=== PATIENT | male | born 1965 | race African-American/Black ===

== ENCOUNTER 2016-11-21 04:59 | Emergency (ER) | payer SELFPAY ==
--- NOTE | 2016-11-21 06:23 | RADIOLOGY REPORT (SQ) ---
EXAM DESCRIPTION: CHEST PA/LAT COMPLETED DATE/TIME: 11/21/2016 6:11 am REASON FOR STUDY: resp COMPARISON: Chest x-ray 05/18/2015, 02/15/2015. EXAM PARAMETERS: NUMBER OF VIEWS: two views TECHNIQUE: Digital Frontal and Lateral radiographic views of the chest acquired. RADIATION DOSE: NA LIMITATIONS: none FINDINGS: LUNGS AND PLEURA: No consolidation, pneumothorax or pleural effusion. MEDIASTINUM AND HILAR STRUCTURES: No masses or contour abnormalities. HEART AND VASCULAR STRUCTURES: The cardiomediastinal silhouette is stable. No overt vascular congest ion. BONES: Mild multilevel degenerative changes in the spine. HARDWARE: None in the chest. IMPRESSION: No acute radiographic finding in the chest. TECHNICAL DOCUMENTATION: JOB ID: [id number] 2010 [employer]- All Rights Reserved
[2016-11-21] MEDS ORDERED: LORAZEPAM 1 MG TABLET PO ONE (06:40)
[2016-11-21] MEDS ORDERED: LORAZEPAM 1 MG TABLET ONE (06:45)
--- NOTE | 2016-11-21 07:36 | ER Document Report ---
ED General - General Chief Complaint: Respiratory Distress Stated Complaint: BREATHING PROBLEMS Time Seen by Provider: 11/21/16 06:13 Mode of Arrival: Ambulatory Information source: Patient Notes: 51-year-old male history of congestive heart failure presents with complaints of shortness of breath. Patient notes these episodes are intermittent and then go away. He notes when he bends forward and starts breathing very quickly the symptoms improve patient denies any edema of his lower extremities denies any shortness of breath when he lays flat Patient believes he may have anxiety TRAVEL OUTSIDE OF THE [place] IN LAST 30 DAYS: No - HPI Onset: Other Onset/Duration: Intermittent Quality of pain: No pain Severity: Moderate Pain Level: Denies Associated symptoms: Shortness of breath Exacerbated by: Movement Relieved by: Other Similar symptoms previously: Yes Recently seen / treated by doctor: Yes - Related Data Allergies/Adverse Reactions: No Known Allergies Allergy (Verified 11/21/16 04:59) Past Medical History - Social History Smoking Status: Never Smoker Cigarette use (# per day): No Chew tobacco use (# tins/day): No Smoking Education Provided: No Family History: None Patient has suicidal ideation: No Patient has homicidal ideation: No - Past Medical History Cardiac Medical History: Reports: Hx Hypertension Renal/ Medical History: Denies: Hx Peritoneal Dialysis Past Surgical History: Reports: Hx Orthopedic Surgery - Immunizations Hx Diphtheria, Pertussis, Tetanus Vaccination: Yes Review of Systems - Review of Systems Notes: REVIEW OF SYSTEMS: CONSTITUTIONAL : Denies fever, chills, or sweats. Denies recent illness. EENT: Denies eye, ear, throat, or mouth pain or symptoms. Denies nasal or sinus congestion or discharge. Denies throat, tongue, or mouth swelling or difficulty swallowing. CARDIOVASCULAR: Denies chest pain. Denies palpitations or racing or irregular heart beat. Denies ankle edema. RESPIRATORY: Admits to shortness of breath GASTROINTESTINAL: Denies abdominal pain or distention. Denies nausea, vomiting , or diarrhea. Denies blood in vomitus, stools, or per rectum. Denies black, tarry stools. Denies constipation. GENITOURINARY: Denies difficulty urinating, painful urination, burning, frequency, blood in urine, or discharge. MUSCULOSKELETAL: Denies back or neck pain or stiffness. Denies joint pain or swelling. SKIN: Denies rash, lesions or sores. HEMATOLOGIC : Denies easy bruising or bleeding. LYMPHATIC: Denies swollen, enlarged glands. NEUROLOGICAL: Denies confusion or altered mental status. Denies passing out or loss of consciousness. Denies dizziness or lightheadedness. Denies headache. Denies weakness or paralysis or loss of use of either side. Denies problems with gait or speech. Denies sensory loss, numbness, or tingling. Denies seizures. PSYCHIATRIC: Admits to stress. ALL OTHER SYSTEMS REVIEWED AND NEGATIVE. Dictation was performed using [employer] voice recognition software PHYSICAL EXAMINATION: GENERAL: Well-appearing, well-nourished and in no acute distress. HEAD: Atraumatic, normocephalic. EYES: Pupils equal round and reactive to light, extraocular movements intact, sclera anicteric, conjunctiva are normal. ENT: Nares patent, oropharynx clear without exudates. Moist mucous membranes. NECK: Normal range of motion, supple without lymphadenopathy LUNGS: Breath sounds clear to auscultation bilaterally and equal. No wheezes rales or rhonchi. HEART: Regular rate and rhythm without murmurs ABDOMEN: Soft, nontender, nondistended abdomen. No guarding, no rebound. No masses appreciated. Musculoskeletal: Normal range of motion, no pitting or edema. No cyanosis. NEUROLOGICAL: Cranial nerves grossly intact. Normal speech, normal gait. Normal sensory, motor exams PSYCH: Normal mood, normal affect. SKIN: Warm, Dry, normal turgor, no rashes or lesions noted. Physical Exam - Vital signs Vitals: Temp Pulse BP Pulse Ox 97.4 F 78 153/108 H 98 11/21/16 05:03 11/21/16 05:03 11/21/16 05:03 11/21/16 05:03 Course - Re-evaluation Re-evalutation: 11/21/16 07:34 Patient noted complete resolution of the symptoms after he was given Ativan x- ray was normal patient satting 100% on room air breath sounds are clear he has no DVT or PE risk factors I believe he is stable for discharge Initial concerns were for congestive heart failure by x-ray was normal there is no edema of the lower extremities that continue to talk with the patient it was apparent that anxiety plays a very large role. I will have him follow-up with primary care physician for further care After performing a Medical Screening Examination, I estimate there is LOW risk for ACUTE CORONARY SYNDROME, RESPIRATORY FAILURE, SEPSIS OR MENINGITIS, thus I consider the discharge disposition reasonable. I have reevaluated this patient multiple times and no significant life threatening changes are noted. The patient and I have discussed the diagnosis and risks, and we agree with discharging home with close follow-up. We also discussed returning to the Emergency Department immediately if new or worsening symptoms occur. We have discussed the symptoms which are most concerning (e.g., changing or worsening pain, trouble swallowing or breathing, neck stiffness, fever) that necessitate immediate return. 11/21/16 16:08 - Vital Signs Vital signs: Temp Pulse Resp BP Pulse Ox 97.4 F 78 18 143/103 H 100 11/21/16 05:03 11/21/16 05:03 11/21/16 07:35 11/21/16 07:35 11/21/16 07:35 - Diagnostic Test Radiology reviewed: Image reviewed, Reports reviewed - No acute abnormality - EKG Interpretation by Me EKG shows normal: Sinus rhythm, [place], Intervals, QRS Complexes Discharge - Discharge Clinical Impression: Panic attack, SOB (shortness of breath) Condition: Stable Disposition: HOME, SELF-CARE Instructions: Anxiety ([facility]), Dyspnea, Nonspecific ([facility]) Prescriptions: Lorazepam [Ativan 1 mg Tablet] 1 mg PO Q4 PRN #20 tab PRN Reason: Referrals: LATASHA BRAXTON NAIL TECH [Primary Care Provider] - Follow up tomorrow
[2016-11-21 07:51] VITALS: BP 143/103
--- NOTE | 2016-11-21 14:35 | EKG REPORT ---
SEVERITY:- ABNORMAL ECG - SINUS RHYTHM LEFT ATRIAL ABNORMALITY ABNORMAL T, CONSIDER ISCHEMIA, LATERAL LEADS BORDERLINE PROLONGED QT INTERVAL : Confirmed by: Melissa Weathers MD 21-Nov-2016 14:33:57
== END 2016-11-21 07:50 | disposition home or self-care (01) ==
LOC: ER 04:59
DX: F41.0 Panic disorder [episodic paroxysmal anxiety] (principal); R06.02 Shortness of breath; I10 Essential (primary) hypertension
CPT/HCPCS: 71020; 93005; 93010; 99285

== ENCOUNTER 2016-11-24 05:10 | Inpatient (IN) | payer SELFPAY ==
[2016-11-24] MEDS ORDERED: IPRATROPIUM/ALBUTEROL 0.5-2.5 MG/3 ML AMPUL NEB ONE ×2 (05:44→15:47)
--- NOTE | 2016-11-24 05:46 | ER Document Report ---
ED Medical Screen (RME) - General Chief Complaint: Shortness Of Breath Stated Complaint: DIFFICULTY BREATHING Time Seen by Provider: 11/24/16 05:44 Notes: Patient is a 51-year-old male who comes emergency department for chief complaint of worsening shortness of breath over the past couple of days, he states that now he cannot even take a couple of steps without getting severely out of breath. He does take Lasix for CHF, states he has been compliant, denies any swelling, he also reports a cough, states he has felt somewhat feverish. He denies chest pain. TRAVEL OUTSIDE OF THE [place] IN LAST 30 DAYS: No - Related Data Allergies/Adverse Reactions: No Known Allergies Allergy (Verified 11/21/16 04:59) Past Medical History - Past Medical History Cardiac Medical History: Reports: Hx Hypertension Renal/ Medical History: Denies: Hx Peritoneal Dialysis Past Surgical History: Reports: Hx Orthopedic Surgery - Immunizations Hx Diphtheria, Pertussis, Tetanus Vaccination: Yes Physical Exam - Vital signs Vitals: Temp Pulse Resp BP Pulse Ox 97.5 F 81 24 H 148/101 H 97 11/24/16 05:20 11/24/16 05:20 11/24/16 05:20 11/24/16 05:20 11/24/16 05:20 - Respiratory Respiratory status: Tachypnea - Mild. No: Respiratory distress Breath sounds: Decreased air movement - Scattered coarse breath sounds, faint expiratory wheezes bilaterally Course - Re-evaluation Re-evalutation: Patient is not hypoxic although he is visibly somewhat short of breath. He is not in respiratory distress. He does have some coarse breath sounds and some faint expiratory wheezes throughout. Workup pending. - Vital Signs Vital signs: Temp Pulse Resp BP Pulse Ox 97.5 F 81 24 H 148/101 H 97 11/24/16 05:20 11/24/16 05:20 11/24/16 05:20 11/24/16 05:20 11/24/16 05:42
[2016-11-24 06:06] LABS: ABSOLUTE EOSINOPHILS # (AUTO) 0.4 10^3/uL (0.0-0.6); ABSOLUTE LYMPHOCYTES (AUTO) 0.9 10^3/uL (0.5-4.7); ABSOLUTE MONOCYTES (AUTO) 0.7 10^3/uL (0.1-1.4); BASOPHILS % (AUTO) 0.6 % (0-2); EOSINOPHILS % (AUTO) 6.2 % (0-6); HEMOGLOBIN 14.7 g/dL (13.5-17.0); HGB HCT DIFFERENCE 1.1; LYMPHOCYTES % (AUTO) 13.1 % (13-45); MEAN CORPUSCULAR HEMOGLOBIN 32.1 pg (27.0-33.4); MEAN CORPUSCULAR HGB CONC 34.2 g/dL (32.0-36.0); MEAN CORPUSCULAR VOLUME 94 fl (80-97); MONOCYTES % (AUTO) 10.1 % (3-13); RED BLOOD COUNT 4.57 10^6/uL (4.35-5.55); RED CELL DISTRIBUTION WIDTH 14.1 % (11.5-14.0); WHITE BLOOD COUNT 7.1 10^3/uL (4.0-10.5)
[2016-11-24 06:22] LABS: ALANINE AMINOTRANSFERASE 56 U/L (21-72); ALBUMIN 3.7 g/dL (3.5-5.0); ALKALINE PHOSPHATASE 85 U/L (38-126); ANION GAP 8 (5-19); ASPARTATE AMINO TRANSFERASE 24 U/L (17-59); BILIRUBIN,DIRECT 0.4 mg/dL (0.0-0.4); BILIRUBIN,TOTAL 0.7 mg/dL (0.2-1.3); BLOOD UREA NITROGEN 16 mg/dL (7-20); CALCIUM 9.3 mg/dL (8.4-10.2); CARBON DIOXIDE 26 mmol/L (22-30); CHLORIDE 111 mmol/L (98-107); CREATINE KINASE 296 U/L (55-170); GLUCOSE 101 mg/dL (75-110); POTASSIUM 4.5 mmol/L (3.6-5.0); SODIUM 144.7 mmol/L (137-145); TOTAL PROTEIN 6.1 g/dL (6.3-8.2)
--- NOTE | 2016-11-24 06:29 | RADIOLOGY REPORT (SQ) ---
EXAM DESCRIPTION: CHEST SINGLE VIEW CLINICAL HISTORY: 51 years, Male, SOB COMPARISON: Chest radiographs of November 21, 2016. NUMBER OF VIEWS: 1 TECHNIQUE: Routine portable AP chest radiograph technique. LIMITATIONS: None. FINDINGS: Unchanged panchamber cardiac enlargement. New mid right lung atelectasis. No pulmonary edema or focal pneumonia on this single view. No pneumothorax. IMPRESSION: New mid right lung atelectasis. No pulmonary edema or focal pneumonia on this single view. 2011 [employer]- All Rights Reserved
[2016-11-24 06:32] LABS: CREATINE KINASE MB 3.35 ng/mL (<4.55)
[2016-11-24 06:35] LABS: TROPONIN I 0.071 ng/mL
--- NOTE | 2016-11-24 06:54 | ER Document Report ---
ED Respiratory Problem - General Mode of Arrival: Ambulatory Information source: Patient TRAVEL OUTSIDE OF THE [place] IN LAST 30 DAYS: No - HPI Patient complains to provider of: Cough Onset: Other - >3 days Duration: Worse/persistent Quality of pain: No pain <FEDERICO BARAJAS - Last Filed: 11/24/16 07:58> <JACOB BILL - Last Filed: 11/24/16 16:15> - General Chief Complaint: Shortness Of Breath Stated Complaint: DIFFICULTY BREATHING Time Seen by Provider: 11/24/16 05:44 Notes: Patient is a 51-year-old male who presents to the emergency department today with complaints of shortness of breath. Patient was seen here 3 days ago for similar complaints and was found to have shortness of breath related to anxiety. Patient states his symptoms have not really been relieved with the medications he was sent home with. Patient states he had similar symptoms one year ago and was diagnosed with CHF at that time and put on Lasix which did relieve his symptoms. Patient states he has developed a slight cough with white sputum production. (FEDERICO BARAJAS) This 51-year-old male patient comes emergency room complaining of worsening shortness of breath for the last few days. He was seen here 3 days ago for shortness of breath and was felt to be due to anxiety. He was discharged with prescription for Ativan. He states that the Ativan did not seem to help his shortness of breath at all. When the patient first arrived he was given a breathing treatment with albuterol and Atrovent. He stated that it did not seem to help his breathing or his shortness of breath. He does not have a history of COPD, and he does not normally use bronchodilators. He does take Lasix for a diagnosis of CHF, and he states that he has been compliant with medication. He does not have any edema to his lower legs and ankles. He is a former smoker. He was admitted here on 02/14/2015 with a CHF exacerbation, at that time he had lower extremity edema and was started on Lasix. (JACOB BILL) - Related Data Allergies/Adverse Reactions: No Known Allergies Allergy (Verified 11/21/16 04:59) Past Medical History - General Information source: Patient - Social History Smoking Status: Former Smoker Cigarette use (# per day): No Chew tobacco use (# tins/day): No Frequency of alcohol use: None Drug Abuse: None Lives with: Family Family History: None Patient has suicidal ideation: No Patient has homicidal ideation: No - Past Medical History Cardiac Medical History: Reports: Hx Hypertension Past Surgical History: Reports: Hx Orthopedic Surgery - Immunizations Hx Diphtheria, Pertussis, Tetanus Vaccination: Yes <FEDERICO BARAJAS - Last Filed: 11/24/16 07:58> Review of Systems - Review of Systems Constitutional: No symptoms reported EENT: No symptoms reported Cardiovascular: No symptoms reported Respiratory: See HPI, Cough, Short of breath Gastrointestinal: No symptoms reported Genitourinary: No symptoms reported Male Genitourinary: No symptoms reported Musculoskeletal: No symptoms reported Skin: No symptoms reported Hematologic/Lymphatic: No symptoms reported Neurological/Psychological: No symptoms reported -: Yes All other systems reviewed and negative <FEDERICO BARAJAS - Last Filed: 11/24/16 07:58> Physical Exam - Vital signs Interpretation: Normal - General General appearance: Appears well, Alert - HEENT Head: Normocephalic, Atraumatic Eyes: Normal Pupils: PERRL Ears: Normal External canal: Normal Tympanic membrane: Normal - Respiratory Respiratory status: Tachypnea Breath sounds: Other - rhonchi and wheezing with forced cough Chest palpation: Normal - Cardiovascular Rhythm: Regular Heart sounds: Normal auscultation Murmur: No - Abdominal Inspection: Normal Distension: No distension Bowel sounds: Normal Tenderness: Nontender Organomegaly: No organomegaly - Back Back: Normal, Nontender - Extremities General upper extremity: Normal inspection, Normal ROM, Normal strength. No: Edema General lower extremity: Edema - 1+ edema bilaterally - Neurological Neuro grossly intact: Yes Cognition: Normal Orientation: AAOx4 Ras Coma Scale Eye Opening: Spontaneous Ras Coma Scale Verbal: Oriented Ras Coma Scale Motor: Obeys Commands Ras Coma Scale Total: 15 Speech: Normal - Psychological Associated symptoms: Normal affect, Normal mood - Skin Skin Temperature: Warm Skin Moisture: Dry Skin Color: Normal <FEDERICO BARAJAS - Last Filed: 11/24/16 07:58> <JACOB BILL - Last Filed: 11/24/16 16:15> - Vital signs Vitals: Temp Pulse Resp BP Pulse Ox 97.5 F 81 24 H 148/101 H 97 11/24/16 05:20 11/24/16 05:20 10/05/17 05:20 11/24/16 05:20 11/24/16 05:20 - HEENT Notes: Eye patch over right eye (FEDERICO BARAJAS) Course - Laboratory Result Diagrams: 11/24/16 05:50 11/24/16 05:50 <FEDERICO BARAJAS - Last Filed: 11/24/16 07:58> - Laboratory Result Diagrams: 11/24/16 05:50 11/24/16 05:50 - Diagnostic Test Radiology reviewed: Image reviewed, Reports reviewed - VQ scan of the lungs is low probability for pulmonary embolus. CT scan of the chest does not show explanation for the shortness of breath. There is an enlarged a sending aorta, but this is unchanged from 02/14/2015. There is an incidental finding of approximately 5 x 5 cm right renal mass suggestive of a renal cell cancer. - EKG Interpretation by [facility] EKG shows normal: Sinus rhythm, [place], Intervals, QRS Complexes, ST-T Waves Rate: Normal - 84 Rhythm: NSR P Waves: LAE When compared to previous EKG there are: No significant change - Consults Dr. Caro Time consulted: 16:00 Consulted provider: will come to ER <JACOB BILL - Last Filed: 11/24/16 16:15> - Re-evaluation Re-evalutation: 11/24/16 11:15 The patient's physical exam, Chem-12, and ABG also just the patient is hyperventilating and possibly due to anxiety. Ativan however has not helped his symptoms. His d-dimer is only 0.3 which makes significant pulmonary emboli extremely unlikely. Due to his chronic renal insufficiency and running creatinines in the 1.82.0 region over the last few years, it would probably not be safe to use contrast on the CT scan. A VQ scan is unlikely to be of benefit due to the d- dimer being so low. Therefore a noncontrasted CT scan of the chest will be done to see if it provides any explanation for the patient's hyperventilation. ( JACOB BILL) - Vital Signs Vital signs: Temp Pulse Resp BP Pulse Ox 97.5 F 81 26 H 184/120 H 99 11/24/16 05:20 11/24/16 05:20 11/24/16 13:01 11/24/16 15:33 11/24/16 13:01 - Laboratory Laboratory results interpreted by me: 11/24/16 11/24/16 11/24/16 05:50 05:50 05:50 RDW 14.1 H Eosinophils % 6.2 H Carbonic Acid ABG pH ABG pCO2 ABG pO2 ABG Total CO2 Chloride 111 H Creatinine 1.80 H Est GFR ( Amer) 48 L Est GFR (Non-Af Amer) 40 L Creatine Kinase 296 H NT-Pro-B Natriuret Pep 2430 H Total Protein 6.1 L 11/24/16 07:40 RDW Eosinophils % Carbonic Acid 0.89 L ABG pH 7.48 H ABG pCO2 29.7 L ABG pO2 79.6 L ABG Total CO2 22.6 L Chloride Creatinine Est GFR ( Amer) Est GFR (Non-Af Amer) Creatine Kinase NT-Pro-B Natriuret Pep Total Protein Discharge <FEDERICO BARAJAS - Last Filed: 11/24/16 07:58> - Discharge Admitting Provider: Hospitalist Unit Admitted: I[facility] <JACOB BILL - Last Filed: 11/24/16 16:15> - Discharge Clinical Impression: SOB (shortness of breath), Acute respiratory alkalosis, Hyperventilation, Renal mass, right, Congestive cardiomyopathy High blood pressure Qualifiers: Hypertension type: essential hypertension Qualified Code(s): I10 - Essential ( primary) hypertension Condition: Stable Disposition: ADMITTED INPATIENT Scribe Attestation: 11/24/16 09:23 I personally performed the services described in the documentation, reviewed and edited the documentation which was dictated to the scribe in my presence, and it accurately records my words and actions. (JACOB BILL) Scribe Documentation - Scribe Written by Albertina:: Albertina Glynn, 11/24/2016 0816 acting as scribe for :: Dre <FEDERICO BARAJAS - Last Filed: 11/24/16 07:58>
[2016-11-24 07:58] LABS: ARTERIAL BLOOD BASE EXCESS -0.6 mmol/L; ARTERIAL BLOOD O2 SATURATION 96.6 % (94-98)
[2016-11-24] MEDS ORDERED: LORAZEPAM INJ 2 MG/1 ML VIAL IV ONE ×2 (08:58→10:50)
--- NOTE | 2016-11-24 09:09 | EKG REPORT ---
SEVERITY:- ABNORMAL ECG - SINUS RHYTHM LEFT ATRIAL ABNORMALITY : Confirmed by: Melissa Weathers MD 24-Nov-2016 09:08:10
--- NOTE | 2016-11-24 11:29 | RADIOLOGY REPORT (SQ) ---
EXAM DESCRIPTION: CT CHEST WITHOUT COMPLETED DATE/TIME: 11/24/2016 11:02 am REASON FOR STUDY: Dyspnea, hyperventilation, chronic renal insuffici COMPARISON: CT angio chest 02/14/2015 Chest films 11/21/2016, 11/24/2016 TECHNIQUE: CT scan performed of the chest without intravenous contrast. Images reviewed with lung, soft tissue and bone windows. Reconstructed coronal and sagittal MPR images reviewed. All images st ored on PACS. All CT scanners at this facility use dose modulation, iterative reconstruction, and/or weight based d osing when appropriate to reduce radiation dose to as low as reasonably achievable (ALARA). [facility]: Dose Right [facility]: CareDose [facility]: Dose Right [facility]: Teradose 4D [facility]: [employer] RADIATION DOSE: Up-to-date CT equipment and radiation dose reduction techniques were employed. CTDIv ol: 19.6 mGy. DLP: 855 mGy-cm. mGy. LIMITATIONS: No technical limitations. FINDINGS: LUNGS AND PLEURA: Minimal bibasilar atelectasis. No acute fluffy infiltrates worrisome f or edema or pneumonia. No pleural effusions. No pneumothorax. HILAR AND MEDIASTINAL STRUCTURES: There are multiple less than 1 cm short axis mediastinal lymph node s, similar compared to 02/14/2015 HEART AND VASCULAR STRUCTURES: Cardiomegaly. No pericardial effusion or significant coronary artery calcifications. Ascending aorta measures 4.4 cm in greatest diameter. Correlate clinically for aort ic stenosis or aortic insufficiency UPPER ABDOMEN: A 4.5 cm mass versus hemorrhagic cyst is present in the right upper pole kidney. Isidro mmend renal ultrasound for followup. Calcified stones are present in the gallbladder without gallbla dder wall thickening or pericholecystic fluid. Multiple less than 1 cm hepatic cysts. THYROID AND OTHER SOFT TISSUES: No masses. No adenopathy. BONES: No significant finding. HARDWARE: None in the chest. OTHER: These findings were discussed with Dr. Erickson IMPRESSION: Cardiomegaly with prominent ascending aorta. Bandlike atelectasis in the right and left lung bases. 4.5 cm mass versus hemorrhagic cyst right kidney for which dedicated renal ultrasound is recommended for followup TECHNICAL DOCUMENTATION: JOB ID: [id number] Quality ID # [id number]: Final reports with documentation of one or more dose reduction techniques (e.g., Au tomated exposure control, adjustment of the mA and/or kV according to patient size, use of iterative reconstruction technique) 2010 [employer]- All Rights Reserved
--- NOTE | 2016-11-24 12:40 | RADIOLOGY REPORT (SQ) ---
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 Additional selected color Doppler and spectral images recorded. LIMITATIONS: Patient has a rapid respiratory rate come on limited images without motion FINDINGS: Right kidney measures 10.1 cm in length. There is diffuse cortical thinning and increased echogenicity. No hydronephrosis or stones. In the upper pole right kidney, a 5 by 4.8 cm diameter complex cystic mass is present with septations and mural nodule. Internal color flow along septation. This is worrisome for primary renal neoplas m. Limited visualization of the left kidney do left upper quadrant bowel gas and patient rapid respirato ry rate. Left kidney 10.6 cm in length. Diffuse left renal cortical thinning and increased cortical echogenicity from medical renal disease with cortical thinning. No hydronephrosis,, stones, or mass es. IMPRESSION: 5 x 4.8 cm complex cystic/ solid mass in the right upper pole kidney worrisome for tumor . Both kidneys exhibit cortical thinning and increased echogenicity from medical renal disease. TECHNICAL DOCUMENTATION: JOB ID: [id number] [employer]- All Rights Reserved
--- NOTE | 2016-11-24 14:51 | RADIOLOGY REPORT (SQ) ---
EXAM DESCRIPTION: NM LUNG VENT/PERF SCAN COMPLETED DATE/TIME: 11/24/2016 2:32 pm REASON FOR STUDY: dyspnea COMPARISON: 08/25/2014 ventilation-perfusion scan CT angio chest 02/14/2015 CT chest without IV contrast 11/24/2016 RADIONUCLIDE AND DOSE: 5 millicuries TC-99m MAA Intravenous 31 millicuries TC-99m DTPA Inhaled aerosol TECHNIQUE: Eight views of the lungs acquired post ventilation of DTPA aerosol. Eight matching views of the lungs acquired following injection of MAA. LIMITATIONS: None. FINDINGS: VENTILATION: There is clumping of DTPA in the central airways, and bandlike absence of delia tilation in the right and left mid lung, correlating with bandlike atelectasis on today's CT exam PERFUSION: Subtle bandlike profusion defect in the right and left mid lung and areas of atelectasis o n today's CT chest. These correlate with ventilation defect, and are triple match by PIOPED criteria , low probability for pulmonary embolus OTHER: No other significant finding. IMPRESSION: Low probability for pulmonary emboli. TECHNICAL DOCUMENTATION: JOB ID: [id number] [employer]- All Rights Reserved
[2016-11-24] MEDS ORDERED: HYDRALAZINE HCL INJ/PF 20 MG/1 ML SDV IV ONE (15:32)
[2016-11-24] MEDS ORDERED: FUROSEMIDE INJ/PF 40 MG/4 ML SDV IV ONE (16:10)
[2016-11-24] MEDS ORDERED: NITROGLYCERIN 2% OINTMENT 1 GM PACKET TP ONE (16:10)
[2016-11-24] MEDS ORDERED: METHYLPREDNISOLONE INJ 125 MG/2 ML SDV IV ONE (16:10)
[2016-11-24] MEDS ORDERED: NITROGLYCERIN 2% OINTMENT 1 GM PACKET ONE (16:11)
[2016-11-24] MEDS ORDERED: METHYLPREDNISOLONE INJ 125 MG/2 ML SDV ONE (16:12)
[2016-11-24] MEDS ORDERED: FUROSEMIDE INJ/PF 40 MG/4 ML SDV ONE (16:12)
[2016-11-24] MEDS ORDERED: ASPIRIN 81 MG TABLET, CHEWABLE ONE (16:12)
[2016-11-24] MEDS ORDERED: ACETAMINOPHEN 325 MG TABLET PO PRN (16:15)
[2016-11-24] MEDS ORDERED: MORPHINE SULFATE 10 MG/ML INJ IV ONE ×2 (16:26→17:00)
[2016-11-24] MEDS ORDERED: MORPHINE SULFATE 10 MG/ML INJ IV PRN (16:28)
[2016-11-24] MEDS ORDERED: MORPHINE SULFATE 10 MG/ML INJ ONE (16:28)
[2016-11-24] MEDS ORDERED: PHARMACY COMMUNICATION ORDER MC NR (16:30)
[2016-11-24 16:41] LABS: APPEARANCE,URINE CLEAR; BILIRUBIN,URINE NEGATIVE (NEGATIVE); GLUCOSE, URINE NEGATIVE (NEGATIVE); KETONES,URINE NEGATIVE (NEGATIVE); LEUKOCYTE ESTERASE,URINE TRACE (NEGATIVE); NITRITE,URINE NEGATIVE (NEGATIVE); PROTEIN,URINE 30 mg/dL (NEGATIVE); URINE SPECIFIC GRAVITY 1.031
[2016-11-24 16:53] LABS: URINE BARBITURATES SCREEN NEGATIVE; URINE METHADONE SCREEN NEGATIVE; URINE OPIATES LOW NEGATIVE; URINE PHENCYCLIDINE SCREEN NEGATIVE
[2016-11-24] MEDS ORDERED: CARVEDILOL 12.5 MG TABLET PO ONE (17:00)
[2016-11-24] MEDS ORDERED: AMOXICILLIN TR/POT CLAVULANATE 500-125 MG TAB PO ONE (17:00)
[2016-11-24 17:54] LABS: CREATINE KINASE MB 2.6 ng/mL (<4.55); TROPONIN I 0.071 ng/mL
[2016-11-24] MEDS ORDERED: LORAZEPAM 1 MG TABLET PO PRN (18:15)
[2016-11-24] MEDS ORDERED: (PENDING PHARMACY ID) (Oxycodone Hcl/Acetaminophen [Percocet 10-325 Mg Tablet] 1 TAB) PO PRN (18:15)
[2016-11-24] MEDS ORDERED: HALOPERIDOL LACTATE INJ 5 MG/1 ML VIAL IV PRN (18:16)
--- NOTE | 2016-11-24 18:28 | PDOC H&P ---
History of Present Illness Admission Date/PCP: 11/24/16 16:15 Kerrie Dorsey NP History of Present Illness: AGUILAR MAHAN is a 51 year old male with a past medical history of hypertension , congestive heart failure, chronic kidney disease stage III who presents with several weeks of shortness of breath. Patient reports that he has been worsening over the past 1-1/2 weeks. He last saw his primary care physician proximally 1 month ago. He reports that over the past 1-1/2 month he has had increasing dyspnea on exertion, orthopnea, edema, and abdominal distention. Patient in the emergency department is found to have a blood pressure of 180s over 140s and is referred to the hospitalist service for hypoxia which is found to be this congestive heart failure, and hypertensive emergency. Past Medical History Cardiac Medical History: Reports: Congestive Heart Failure, Hypertension Pulmonary Medical History: Reports: Chronic Obstructive Pulmonary Disease (COPD) Endocrine Medical History: Reports: Obesity Renal/ Medical History: Reports: Chronic Kidney Disease Psychiatric Medical History: Reports: Tobacco Dependency Past Surgical History Past Surgical History: Reports: Other - Right eye surgery Social History Lives with: Family Smoking Status: Current Every Day Smoker Frequency of Alcohol Use: Occasional Hx Recreational Drug Use: No Drugs: None Hx Prescription Drug Abuse: No - Advance Directive Resuscitation Status: Full Code Surrogate healthcare decision maker:: , Roxane Sterling Family History Family History: CAD, COPD, DM, Hypertension, Malignancy - Father with bladder cancer Parental Family History Reviewed: Yes Children Family History Reviewed: Yes Sibling(s) Family History Reviewed.: Yes Medication/Allergy Home Medications: Aspirin [Aspirin 81 mg Chewable Tablet] 81 mg PO DAILY 11/24/16 Carvedilol [Coreg 12.5 mg Tablet] 12.5 mg PO Q12 11/24/16 Furosemide [Lasix 40 mg Tablet] 40 mg PO QAM 11/24/16 Lorazepam [Ativan 1 mg Tablet] 1 mg PO Q4 PRN 11/24/16 Oxycodone HCl/Acetaminophen [Percocet 10-325 Mg Tablet] 1 tab PO BIDP PRN Sertraline HCl [Zoloft 50 mg Tablet] 50 mg PO DAILY 11/24/16 Allergies/Adverse Reactions: No Known Allergies Allergy (Verified 11/21/16 04:59) Review of Systems Constitutional: PRESENT: chills, fever(s). ABSENT: headache(s), weight gain, weight loss Eyes: ABSENT: visual disturbances Ears: ABSENT: hearing changes Nose, Mouth, and Throat: ABSENT: headache(s) Cardiovascular: PRESENT: chest pain, dyspnea on exertion, edema, orthropnea. ABSENT: palpitations Respiratory: PRESENT: dyspnea, sputum - White. ABSENT: cough, hemoptysis Gastrointestinal: ABSENT: abdominal pain, constipation, diarrhea, hematemesis, hematochezia, melena, nausea, vomiting Genitourinary: ABSENT: dysuria, hematuria Musculoskeletal: ABSENT: joint swelling Integumentary: ABSENT: rash, wounds Neurological: ABSENT: abnormal gait, abnormal speech, confusion, dizziness, focal weakness, syncope Psychiatric: ABSENT: anxiety, depression, homidical ideation, suicidal ideation Endocrine: ABSENT: cold intolerance, heat intolerance, polydipsia, polyuria Hematologic/Lymphatic: ABSENT: easy bleeding, easy bruising Physical Exam Vital Signs: Temp Pulse Resp BP Pulse Ox 97.5 F 81 28 H 184/120 H 99 11/24/16 05:20 11/24/16 05:20 11/24/16 17:10 11/24/16 15:33 11/24/16 13:01 Intake & Output 11/23/16 11/24/16 11/25/16 06:59 06:59 06:59 Output Total 700 Balance -700 General appearance: PRESENT: obese, severe distress - 3 word dyspnea, tripoding , well-developed, well-nourished Head exam: PRESENT: atraumatic, normocephalic Eye exam: PRESENT: conjunctiva pink, EOMI, PERRLA. ABSENT: scleral icterus Ear exam: PRESENT: normal external ear exam Mouth exam: PRESENT: moist, tongue midline Neck exam: ABSENT: JVD, lymphadenopathy, thyromegaly, tracheal deviation Respiratory exam: PRESENT: prolonged expiratory phas, symmetrical, tachypnea, wheezes - Right upper lobe, other - Poor air excursion. ABSENT: rales, rhonchi , unlabored - Labored Cardiovascular exam: PRESENT: RRR, +S1, +S2, tachycardia. ABSENT: diastolic murmur, gallop, rubs, systolic murmur Pulses: PRESENT: normal radial pulses, +2 pedal pulses bilateral Vascular exam: PRESENT: normal capillary refill GI/Abdominal exam: PRESENT: normal bowel sounds, soft. ABSENT: distended, guarding, mass, Krishnamurthy's sign, organolmegaly, rebound, rigid, tenderness Rectal exam: PRESENT: deferred Extremities exam: PRESENT: full ROM, +2 edema - To mid link. ABSENT: calf tenderness, clubbing Neurological exam: PRESENT: alert, awake, oriented to person, oriented to place , oriented to time, oriented to situation, CN II-XII grossly intact. ABSENT: motor sensory deficit Psychiatric exam: PRESENT: anxious, appropriate affect. ABSENT: homicidal ideation, suicidal ideation Skin exam: PRESENT: dry, intact, warm. ABSENT: cyanosis, rash Results Laboratory Results: 11/24/16 11/24/16 17:06 17:06 Creatine Kinase 240 H CK-MB (CK-2) 2.60 Troponin I 0.071 Impressions: Chest X-Ray 11/24/16 05:23 IMPRESSION: New mid right lung atelectasis. No pulmonary edema or focal pneumonia on this single view. 2010 [employer]- All Rights Reserved Chest CT 11/24/16 10:46 IMPRESSION: Cardiomegaly with prominent ascending aorta. Bandlike atelectasis in the right and left lung bases. 4.5 cm mass versus hemorrhagic cyst right kidney for which dedicated renal ultrasound is recommended for followup Renal Ultrasound 11/24/16 11:21 IMPRESSION: 5 x 4.8 cm complex cystic/ solid mass in the right upper pole kidney worrisome for tumor. Both kidneys exhibit cortical thinning and increased echogenicity from medical renal disease. Lung Scan-VQ NM 11/24/16 13:35 IMPRESSION: Low probability for pulmonary emboli. Assessment & Plan - Diagnosis (1) Hypertensive emergency Is this a current diagnosis for this admission?: Yes Plan: Place patient on nitroglycerin, Coreg, and as needed hydralazine. Goal to bring blood pressure down 20% the first 24 hours. Continue to monitor patient. (2) Chronic opiate dependence Is this a current diagnosis for this admission?: Yes (3) Chronic respiratory alkalosis Is this a current diagnosis for this admission?: Yes (4) Renal mass, right Is this a current diagnosis for this admission?: Yes Plan: Defer to outpatient workup (5) Acute and chronic respiratory failure Qualifiers: Respiratory failure complication: hypoxia Qualified Code(s): J96.21 - Acute and chronic respiratory failure with hypoxia Is this a current diagnosis for this admission?: Yes Plan: Oxygen and BiPAP as needed (6) Acute on chronic systolic (congestive) heart failure Is this a current diagnosis for this admission?: Yes Plan: Place patient on IV Lasix. On telemetry No BING/ARB secondary to chronic kidney disease Reinitiate Coreg Check urine drug screen Monitor cardiac enzymes. (7) Chronic kidney disease, stage III (moderate) Is this a current diagnosis for this admission?: Yes Plan: We will renally adjust medication (8) Panic attack Is this a current diagnosis for this admission?: Yes Plan: Haldol as needed (9) Tobacco dependency Is this a current diagnosis for this admission?: Yes Plan: Nicotine patch as needed and encourage cessation (10) Obesity (BMI 30.0-34.9) Is this a current diagnosis for this admission?: Yes - Time Time Spent: 50 to 70 Minutes Medications reviewed and adjusted accordingly: Yes
[2016-11-24 18:38] LABS: THYROID STIMULATING HORMONE 0.44 uIU/mL (0.47-4.68)
[2016-11-24] MEDS ORDERED: OXYCODONE-ACETAMINOPHEN 5-325 MG TABLET PO PRN (19:02)
[2016-11-24] MEDS ORDERED: OXYCODONE HCL IR 5 MG TABLET PO PRN (19:03)
--- NOTE | 2016-11-24 19:24 | XCELERA REPORT ---
[address] [address] Transthoracic Echocardiogram Report Name: AGUILAR MAHAN Age: 51 yrs Gender: Male : 1965 Patient Status: Inpatient Patient [address]: [address] Study Date: 11/24/2016 04:43 PM Height: 75 in Weight: 266 lb BSA: 2.5 m2 Procedure: A complete two-dimensional transthoracic echocardiogram was performed (2D, M-mode, spectral and color flow Doppler). The study was technically difficult with many images being suboptimal in quality. Reason For Study: acute chf, concern for tamponade Ordering Physician: CRISTI JENNINGS Performed By: Roz Lopez Interpretation Summary The Ejection Fraction estimate is 40-45% Left ventricular systolic function is mild to moderately reduced. There is moderate concentric left ventricular hypertrophy. The left ventricle is grossly normal size. Doppler measurements suggest pseudonormalized left ventricular relaxation, which is associated with grade II/IV or mild to moderate diastolic dysfunction There is mild to moderate global hypokinesis of the left ventricle. The right ventricular systolic function is normal. The left atrium is moderately dilated. The right atrium is normal in size There is a mild amount of mitral regurgitation There is no mitral valve stenosis. There is a mild to moderate amount of aortic regurgitation There is no aortic valve stenosis There is a trace or physiologic amount of tricuspid regurgitation Tricuspid regurgitation jet envelope not well defined to measure RV systolic pressure accurately. The inferior vena cava appeared normal and decreased < 50% with respiration (RAP 10-15 mmHg) Minimal pericardial effusion. MMode/2D Measurements & Calculations RVDd: 4.7 cm LVIDd: 5.4 cm FS: 17.2 % Ao root diam: 3.7 cm IVSd: 1.3 cm LVIDs: 4.4 cm EDV(Teich): 139.7 ml LVPWd: 1.3 cm ESV(Teich): 89.9 ml Ao root area: 10.9 cm2 EF(Teich): 35.7 % LA dimension: 4.7 cm Doppler Measurements & Calculations MV E max sang: MV P1/2t max sang: Ao V2 max: AI max sang: 97.2 cm/sec 97.2 cm/sec 142.5 cm/sec 511.7 cm/sec MV A max sang: MV P1/2t: 38.7 msec Ao max PG: AI max P.4 cm/sec 8.1 mmHg 104.7 mmHg MV E/A: 2.3 MVA(P1/2t): 5.7 cm2 AI dec slope: MV dec slope: 735.0 cm/sec2 470.3 cm/sec2 MV dec time: AI P1/2t: 0.12 sec 318.7 msec LV V1 max PG: PA V2 max: TR max sang: 3.9 mmHg 83.4 cm/sec 241.6 cm/sec LV V1 max: PA max P.8 mmHg TR max P.2 cm/sec 23.4 mmHg Left Ventricle The left ventricle is grossly normal size. There is moderate concentric left ventricular hypertrophy. Left ventricular systolic function is mild to moderately reduced. The Ejection Fraction estimate is 40-45%. Doppler measurements suggest pseudonormalized left ventricular relaxation, which is associated with grade II/IV or mild to moderate diastolic dysfunction. There is mild to moderate global hypokinesis of the left ventricle. Right Ventricle The right ventricle is grossly normal size. There is normal right ventricular wall thickness. The right ventricular systolic function is normal. Atria The right atrium is normal in size. The left atrium is moderately dilated. Interarterial septum not well visualized and not well dopplered. Cannot comment on ASD/PFO presence. Mitral Valve The mitral valve is grossly normal. There is no mitral valve stenosis. There is a mild amount of mitral regurgitation. Aortic Valve The aortic valve is grossly normal. There is no aortic valve stenosis. There is a mild to moderate amount of aortic regurgitation. Tricuspid Valve The tricuspid valve is not well visualized secondary to technical limitations. There is no tricuspid stenosis. There is a trace or physiologic amount of tricuspid regurgitation. Tricuspid regurgitation jet envelope not well defined to measure RV systolic pressure accurately. Pulmonic Valve The pulmonic valve is not well visualized. Great Vessels The aortic root is not well visualized. The inferior vena cava appeared normal and decreased < 50% with respiration (RAP 10-15 mmHg). Effusions Minimal pericardial effusion. : CRISTI JENNINGS > Lai Marin
[2016-11-24] MEDS ORDERED: INFLUENZA ADLT QUAD (36MOS+) 2017-18 VAC 0.5 ML SYR IM PRN (20:42)
[2016-11-24] MEDS: METHYLPREDNISOLONE INJ 125 MG/2 ML SDV IV SCH ×2 (21:40→23:53)
[2016-11-24] MEDS: FUROSEMIDE INJ/PF 40 MG/4 ML SDV IV SCH (22:13)
[2016-11-24] MEDS: FAMOTIDINE 20 MG TABLET PO SCH (22:13)
[2016-11-24] MEDS: HEPARIN SOD (PORCINE) 5,000 UNIT/ML 1 ML SYRINGE SUBCUT SCH (22:14)
[2016-11-24] MEDS: AMOXICILLIN TR/POT CLAVULANATE 500-125 MG TAB PO SCH (22:14)
[2016-11-24] MEDS: CARVEDILOL 12.5 MG TABLET PO SCH (22:14)
[2016-11-25 00:15] LABS: CREATINE KINASE MB 2.67 ng/mL (<4.55); TROPONIN I 0.065 ng/mL
[2016-11-25] MEDS: METHYLPREDNISOLONE INJ 125 MG/2 ML SDV IV SCH ×3 (05:24→18:23)
[2016-11-25] MEDS: HEPARIN SOD (PORCINE) 5,000 UNIT/ML 1 ML SYRINGE SUBCUT SCH ×3 (05:24→22:44)
[2016-11-25] MEDS: AMOXICILLIN TR/POT CLAVULANATE 500-125 MG TAB PO SCH ×3 (05:24→22:42)
[2016-11-25 05:32] LABS: CREATINE KINASE 203 U/L (55-170); Direct HDL 49 mg/dL (>40); TRIGLYCERIDES 55 mg/dL (<150)
[2016-11-25 05:42] LABS: DIRECT LDL 67 mg/dL (<100)
[2016-11-25 05:44] LABS: CREATINE KINASE MB 2.32 ng/mL (<4.55); TROPONIN I 0.052 ng/mL
[2016-11-25 08:03] LABS: ABSOLUTE LYMPHOCYTES (AUTO) 0.6 10^3/uL (0.5-4.7); ABSOLUTE MONOCYTES (AUTO) 0.1 10^3/uL (0.1-1.4); ABSOLUTE NEUT (AUTO) 6.8 10^3/uL (1.7-8.2); BASOPHILS % (AUTO) 0.4 % (0-2); EOSINOPHILS % (AUTO) 0.1 % (0-6); HEMOGLOBIN 14.8 g/dL (13.5-17.0); HGB HCT DIFFERENCE 0.4; LYMPHOCYTES % (AUTO) 7.5 % (13-45); MEAN CORPUSCULAR HEMOGLOBIN 31.9 pg (27.0-33.4); MEAN CORPUSCULAR HGB CONC 33.7 g/dL (32.0-36.0); MEAN CORPUSCULAR VOLUME 95 fl (80-97); MONOCYTES % (AUTO) 1.9 % (3-13); RED BLOOD COUNT 4.64 10^6/uL (4.35-5.55); SEGMENTED NEUTROPHILS % (AUTO) 90.1 % (42-78); WHITE BLOOD COUNT 7.5 10^3/uL (4.0-10.5)
[2016-11-25 08:43] LABS: ALANINE AMINOTRANSFERASE 53 U/L (21-72); ALBUMIN 4.1 g/dL (3.5-5.0); ALKALINE PHOSPHATASE 90 U/L (38-126); ANION GAP 10 (5-19); ASPARTATE AMINO TRANSFERASE 44 U/L (17-59); BILIRUBIN,DIRECT 0.5 mg/dL (0.0-0.4); BILIRUBIN,TOTAL 0.7 mg/dL (0.2-1.3); BLOOD UREA NITROGEN 21 mg/dL (7-20); CALCIUM 9.7 mg/dL (8.4-10.2); CARBON DIOXIDE 24 mmol/L (22-30); CHLORIDE 107 mmol/L (98-107); CREATININE RESULT 1.96 mg/dL (0.52-1.25); GLUCOSE 118 mg/dL (75-110); POTASSIUM 4.7 mmol/L (3.6-5.0); SODIUM 140.7 mmol/L (137-145)
[2016-11-25] MEDS: CARVEDILOL 12.5 MG TABLET PO SCH ×2 (09:12→22:43)
[2016-11-25] MEDS: DOCUSATE SODIUM 100 MG CAPSULE PO SCH (09:13)
[2016-11-25] MEDS: ASPIRIN 325 MG TABLET, ENT COATED PO SCH (09:13)
[2016-11-25] MEDS: SERTRALINE HCL 50 MG TABLET PO SCH (09:14)
[2016-11-25] MEDS: FUROSEMIDE INJ/PF 40 MG/4 ML SDV IV SCH (09:14)
[2016-11-25] MEDS: FAMOTIDINE 20 MG TABLET PO SCH ×2 (09:14→22:43)
--- NOTE | 2016-11-25 09:28 | RADIOLOGY REPORT (SQ) ---
EXAM DESCRIPTION: CHEST PA/LAT COMPLETED DATE/TIME: 11/25/2016 7:33 am REASON FOR STUDY: chf COMPARISON: CT chest 11/24/2016 Two-view chest 11/21/2016 CT angio chest 02/14/2015 EXAM PARAMETERS: NUMBER OF VIEWS: two views TECHNIQUE: Digital Frontal and Lateral radiographic views of the chest acquired. RADIATION DOSE: NA LIMITATIONS: none FINDINGS: LUNGS AND PLEURA: In the right retrocardiac region, a 3 cm nodule is apparent which is act ually a tortuous right pulmonary vein on both prior CT exams. Minimal bandlike atelectasis right posterior lung base. Lungs are otherwise well inflated and clear. No pleural effusion. No pneumothorax. MEDIASTINUM AND HILAR STRUCTURES: No masses or contour abnormalities. HEART AND VASCULAR STRUCTURES: Massive cardiomegaly BONES: No acute findings. HARDWARE: None in the chest. OTHER: No other significant finding. IMPRESSION: Right basilar atelectasis. Stable cardiomegaly Nodular density in the right retrocardiac region is actually a very tortuous enlarged pulmonary vein on prior CT angio chest exams. TECHNICAL DOCUMENTATION: JOB ID: [id number] [employer]- All Rights Reserved
--- NOTE | 2016-11-25 15:32 | PDOC PROGRESS REPORT ---
Subjective Progress Note for:: 11/25/16 Subjective:: Patient is doing significantly better today. He reports that at home he had stopped taking his Lasix as he had been told that this can cause kidney problems. Patient denies chest pain, shortness of breath, abdominal pain, nausea, vomiting , fevers, chills, diarrhea, constipation, headache, new onset weakness. Physical Exam Vital Signs: Temp Pulse Resp BP Pulse Ox 97.4 F 65 20 124/92 H 100 11/25/16 04:41 11/25/16 04:41 11/25/16 04:41 11/25/16 04:41 11/25/16 04:41 Intake & Output 11/24/16 11/25/16 11/26/16 06:59 06:59 06:59 Intake Total 1304 Output Total 1850 Balance -546 Weight 116.9 kg Exam: General: Awake alert and oriented x3, no acute respiratory distress HEENT: AT/NC, PERRL, EOMI, oropharynx is moist, pink, no scleral icterus, no conjunctival injection Neck: No JVD, trachea midline Chest: Clear to auscultation bilaterally, no wheezes rhonchi or rales CV: Regular rate and rhythm, normal S1 and S2, no rub; +gallop; +SM Abdomen: Soft, nontender to palpation, nondistended, active bowel sounds; no rebound, rigidity, or guarding Extremities: No cyanosis, clubbing; +1 edema Neuro: Cranial nerves II through XII are grossly intact without focal deficits; awake alert and oriented x3 Psych: Normal mood and affect Results Laboratory Results: 11/24/16 11/24/16 11/25/16 17:06 17:06 05:04 Magnesium 2.1 2.0 Triglycerides 55 Cholesterol 141.40 LDL Cholesterol Direct 67 VLDL Cholesterol 11.0 HDL Cholesterol 49 TSH 0.44 L Free T4 1.64 11/24/16 11/24/16 11/24/16 17:06 17:06 23:34 Creatine Kinase 240 H 200 H CK-MB (CK-2) 2.60 Troponin I 0.071 11/24/16 11/25/16 11/25/16 23:34 05:04 05:04 Creatine Kinase 203 H CK-MB (CK-2) 2.67 2.32 Troponin I 0.065 0.052 Impressions: Chest X-Ray 11/24/16 05:23 IMPRESSION: New mid right lung atelectasis. No pulmonary edema or focal pneumonia on this single view. 2010 [employer]- All Rights Reserved Chest CT 11/24/16 10:46 IMPRESSION: Cardiomegaly with prominent ascending aorta. Bandlike atelectasis in the right and left lung bases. 4.5 cm mass versus hemorrhagic cyst right kidney for which dedicated renal ultrasound is recommended for followup Renal Ultrasound 11/24/16 11:21 IMPRESSION: 5 x 4.8 cm complex cystic/ solid mass in the right upper pole kidney worrisome for tumor. Both kidneys exhibit cortical thinning and increased echogenicity from medical renal disease. Lung Scan-VQ NM 11/24/16 13:35 IMPRESSION: Low probability for pulmonary emboli. Assessment & Plan - Diagnosis (1) COPD exacerbation Is this a current diagnosis for this admission?: Yes Plan: Decrease Solu-Medrol to 80 mg IV every 6. Continue Augmentin. Scheduled and as needed nebulized treatments (2) Acute on chronic systolic (congestive) heart failure Is this a current diagnosis for this admission?: Yes Plan: Currently volume overloaded Patient with combined systolic and diastolic heart failure. Echocardiogram done on 11/24/2016 reveals an EF of 40-45%, grade 2 diastolic dysfunction, mild to moderate global hypokinesis the left ventricle, mild to moderate aortic regurgitation, mild mitral regurgitation. Patient on IV Lasix. On telemetry to monitor for arrhythmia No BING/ARB secondary to chronic kidney disease Have increased Coreg Cardiac enzymes negative for acute VT (3) Hypertensive emergency Is this a current diagnosis for this admission?: Yes Plan: This has resolved. Selected Entries 11/25/16 11/25/16 07:50 11:15 Blood Pressure 137/94 H 132/93 H Generic Name Dose Route Start Last Admin Trade Name Freq PRN Reason Stop Dose Admin Carvedilol 25 mg 11/24/16 22:00 11/25/16 09:12 Coreg 12.5 Mg Tablet PO 12/24/16 21:59 25 mg Q12 MENA Isosorbide Mononitrate 30 mg 11/25/16 16:00 Imdur 60 Mg Tablet.Er PO 12/25/16 15:59 DAILY MENA Furosemide 40 mg 11/25/16 18:00 Lasix Inj/Pf 40 Mg/4 Ml Sdv IV 12/25/16 17:59 BID MENA (4) Chronic opiate dependence Is this a current diagnosis for this admission?: Yes Plan: Continue patient's home Percocet and stop morphine (5) Chronic respiratory alkalosis Is this a current diagnosis for this admission?: Yes (6) Renal mass, right Is this a current diagnosis for this admission?: Yes Plan: Defer to outpatient workup Will discuss with family. (7) Acute and chronic respiratory failure Qualifiers: Respiratory failure complication: hypoxia Qualified Code(s): J96.21 - Acute and chronic respiratory failure with hypoxia Is this a current diagnosis for this admission?: Yes Plan: Patient with acute hypoxemic respiratory failure secondary to COPD exacerbation and CHF exacerbation Continue oxygen to maintain saturation greater than 93 If needed BiPAP (8) Chronic kidney disease, stage III (moderate) Is this a current diagnosis for this admission?: Yes Plan: We will renally adjust medication Baseline creatinine 2.0 (9) Panic attack Is this a current diagnosis for this admission?: No Plan: Feel patient had appropriate level of panic for his condition (10) Tobacco dependency Is this a current diagnosis for this admission?: Yes Plan: Nicotine patch as needed and encourage cessation (11) Obesity (BMI 30.0-34.9) Is this a current diagnosis for this admission?: Yes - Time Time Spent with patient: 35 or more minutes Medications reviewed and adjusted accordingly: Yes Anticipated discharge: Home Within: within 48 hours - Inpatient Certification Based on my medical assessment, after consideration of the patient's comorbidities, presenting symptoms, or acuity I expect that the services needed warrant INPATIENT care.: Yes I certify that my determination is in accordance with my understanding of Medicare's requirements for reasonable and necessary INPATIENT services [42 CFR 412.3e].: Yes Medical Necessity: Need For Continuous Telemetry Monitoring, Need for Nebulizer Therapy and Monitoring of Response 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
[2016-11-25] MEDS ORDERED: FUROSEMIDE INJ/PF 40 MG/4 ML SDV IV SCH (18:00)
[2016-11-25] MEDS: ISOSORBIDE MONONITRATE 60 MG TAB.ER.24H PO SCH (18:33)
[2016-11-26] MEDS: METHYLPREDNISOLONE INJ 125 MG/2 ML SDV IV SCH ×2 (01:11→05:32)
[2016-11-26] MEDS: AMOXICILLIN TR/POT CLAVULANATE 500-125 MG TAB PO SCH ×3 (05:32→22:08)
[2016-11-26] MEDS: HEPARIN SOD (PORCINE) 5,000 UNIT/ML 1 ML SYRINGE SUBCUT SCH ×3 (05:33→22:05)
[2016-11-26 05:59] LABS: ANION GAP 11 (5-19); CALCIUM 9.6 mg/dL (8.4-10.2); CARBON DIOXIDE 24 mmol/L (22-30); CHLORIDE 102 mmol/L (98-107); CREATININE RESULT 2.13 mg/dL (0.52-1.25); GLUCOSE 125 mg/dL (75-110); POTASSIUM 4.3 mmol/L (3.6-5.0); SODIUM 136.9 mmol/L (137-145)
[2016-11-26 06:12] LABS: BLOOD UREA NITROGEN 47 mg/dL (7-20)
--- NOTE | 2016-11-26 08:53 | RADIOLOGY REPORT (SQ) ---
EXAM DESCRIPTION: CHEST PA/LAT COMPLETED DATE/TIME: 11/26/2016 8:43 am REASON FOR STUDY: chf COMPARISON: 11/25/2016 EXAM PARAMETERS: NUMBER OF VIEWS: two views TECHNIQUE: Digital Frontal and Lateral radiographic views of the chest acquired. RADIATION DOSE: NA LIMITATIONS: none FINDINGS: LUNGS AND PLEURA: Increasing retrocardiac airspace disease best seen on lateral view sugge stive of developing pneumonia. Lungs and pleural spaces otherwise grossly clear. MEDIASTINUM AND HILAR STRUCTURES: No masses or contour abnormalities. HEART AND VASCULAR STRUCTURES: Heart stable size. No evidence for failure. BONES: No acute findings. HARDWARE: None in the chest. OTHER: No other significant finding. IMPRESSION: INCREASING RETROCARDIAC AIRSPACE DISEASE SUGGESTIVE OF DEVELOPING PNEUMONIA. TECHNICAL DOCUMENTATION: JOB ID: [id number] [employer]- All Rights Reserved
[2016-11-26] MEDS: DOCUSATE SODIUM 100 MG CAPSULE PO SCH (09:04)
[2016-11-26] MEDS: CARVEDILOL 12.5 MG TABLET PO SCH ×2 (09:05→22:10)
[2016-11-26] MEDS: ASPIRIN 325 MG TABLET, ENT COATED PO SCH (09:05)
[2016-11-26] MEDS: SERTRALINE HCL 50 MG TABLET PO SCH (09:05)
[2016-11-26] MEDS: FAMOTIDINE 20 MG TABLET PO SCH ×2 (09:06→22:08)
[2016-11-26] MEDS: FUROSEMIDE 40 MG TABLET PO SCH (09:25)
[2016-11-26] MEDS ORDERED: METHYLPREDNISOLONE INJ 125 MG/2 ML SDV IV SCH (14:00)
--- NOTE | 2016-11-26 16:29 | PDOC PROGRESS REPORT ---
Subjective Progress Note for:: 11/26/16 Subjective:: Patient is doing significantly better today. He reports he feels he is ready for home. Patient denies chest pain, shortness of breath, abdominal pain, nausea, vomiting , fevers, chills, diarrhea, constipation, headache, new onset weakness. Physical Exam Vital Signs: Temp Pulse Resp BP Pulse Ox 97.7 F 74 16 138/90 H 96 11/26/16 05:05 11/26/16 05:05 11/26/16 05:05 11/26/16 05:05 11/26/16 05:05 Intake & Output 11/25/16 11/26/16 11/27/16 06:59 06:59 06:59 Intake Total 1304 2106 Output Total 1850 2550 Balance -546 -444 Weight 116.9 kg 117.6 kg Exam: General: Awake alert and oriented x3, no acute respiratory distress HEENT: AT/NC, PERRL, EOMI, oropharynx is moist, pink, no scleral icterus, no conjunctival injection Neck: No JVD, trachea midline Chest: Wheezing left lower lobe CV: Regular rate and rhythm, normal S1 and S2, no rub; +gallop; +SM Abdomen: Soft, nontender to palpation, nondistended, active bowel sounds; no rebound, rigidity, or guarding Extremities: No cyanosis, clubbing, edema Neuro: Cranial nerves II through XII are grossly intact without focal deficits; awake alert and oriented x3 Psych: Normal mood and affect Results Laboratory Results: 11/25/16 05:01 11/26/16 04:41 11/25/16 11/25/16 11/26/16 05:01 05:04 04:41 WBC 7.5 RBC 4.64 Hgb 14.8 Hct 44.0 MCV 95 MCH 31.9 MCHC 33.7 RDW 14.0 Plt Count 154 Seg Neutrophils % 90.1 H Lymphocytes % 7.5 L Monocytes % 1.9 L Eosinophils % 0.1 Basophils % 0.4 Absolute Neutrophils 6.8 Absolute Lymphocytes 0.6 Absolute Monocytes 0.1 Absolute Eosinophils 0.0 Absolute Basophils 0.0 Sodium 140.7 136.9 L Potassium 4.7 4.3 Chloride 107 102 Carbon Dioxide 24 24 Anion Gap 10 11 BUN 21 H 47 H D Creatinine 1.96 H 2.13 H Est GFR ( Amer) 44 L 40 L Est GFR (Non-Af Amer) 36 L 33 L Glucose 118 H 125 H Calcium 9.7 9.6 Total Bilirubin 0.7 AST 44 ALT 53 Alkaline Phosphatase 90 Total Protein 7.0 Albumin 4.1 11/24/16 11/24/16 11/24/16 17:06 17:06 23:34 Creatine Kinase 240 H 200 H CK-MB (CK-2) 2.60 Troponin I 0.071 NT-Pro-B Natriuret Pep 11/24/16 11/25/16 11/25/16 23:34 05:04 05:04 Creatine Kinase 203 H CK-MB (CK-2) 2.67 2.32 Troponin I 0.065 0.052 NT-Pro-B Natriuret Pep 11/26/16 04:41 Creatine Kinase CK-MB (CK-2) Troponin I NT-Pro-B Natriuret Pep 1830 H Impressions: Chest CT 11/24/16 10:46 IMPRESSION: Cardiomegaly with prominent ascending aorta. Bandlike atelectasis in the right and left lung bases. 4.5 cm mass versus hemorrhagic cyst right kidney for which dedicated renal ultrasound is recommended for followup Renal Ultrasound 11/24/16 11:21 IMPRESSION: 5 x 4.8 cm complex cystic/ solid mass in the right upper pole kidney worrisome for tumor. Both kidneys exhibit cortical thinning and increased echogenicity from medical renal disease. Lung Scan-VQ NM 11/24/16 13:35 IMPRESSION: Low probability for pulmonary emboli. Chest X-Ray 11/25/16 06:00 IMPRESSION: Right basilar atelectasis. Stable cardiomegaly Nodular density in the right retrocardiac region is actually a very tortuous enlarged pulmonary vein on prior CT angio chest exams. Assessment & Plan - Diagnosis (1) Left lower lobe pneumonia Qualifiers: Pneumonia type: due to unspecified organism Qualified Code(s): J18.1 - Lobar pneumonia, unspecified organism Is this a current diagnosis for this admission?: Yes Plan: Patient's repeat chest x-ray reveals a left lower lobe pneumonia. This was likely present on admission, but massively patient significant cardiomegaly. Patient on Augmentin, prednisone, and breathing treatments. (2) COPD exacerbation Is this a current diagnosis for this admission?: Yes Plan: Transition to prednisone. Continue Augmentin. Scheduled and as needed nebulized treatments (3) Acute on chronic systolic (congestive) heart failure Is this a current diagnosis for this admission?: Yes Plan: Currently euvolemic Patient with combined systolic and diastolic heart failure. Echocardiogram done on 11/24/2016 reveals an EF of 40-45%, grade 2 diastolic dysfunction, mild to moderate global hypokinesis the left ventricle, mild to moderate aortic regurgitation, mild mitral regurgitation. Transition to oral Lasix On telemetry to monitor for arrhythmia No BING/ARB secondary to chronic kidney disease Have increased Coreg Cardiac enzymes negative for acute WA (4) Hypertensive emergency Is this a current diagnosis for this admission?: Yes Plan: This has resolved. (5) Chronic opiate dependence Is this a current diagnosis for this admission?: Yes Plan: Continue patient's home Percocet (6) Chronic respiratory alkalosis Is this a current diagnosis for this admission?: Yes (7) Renal mass, right Is this a current diagnosis for this admission?: Yes Plan: Defer to outpatient workup Will discuss with family. (8) Acute and chronic respiratory failure Qualifiers: Respiratory failure complication: hypoxia Qualified Code(s): J96.21 - Acute and chronic respiratory failure with hypoxia Is this a current diagnosis for this admission?: Yes Plan: Patient with acute hypoxemic respiratory failure secondary to COPD exacerbation and CHF exacerbation Continue oxygen to maintain saturation greater than 93 Patient currently off oxygen and BiPAP doing well (9) Chronic kidney disease, stage III (moderate) Is this a current diagnosis for this admission?: Yes Plan: We will renally adjust medication Baseline creatinine 2.0 (10) Panic attack Is this a current diagnosis for this admission?: No (11) Tobacco dependency Is this a current diagnosis for this admission?: Yes (12) Obesity (BMI 30.0-34.9) Is this a current diagnosis for this admission?: Yes - Time Time Spent with patient: 25-34 minutes Medications reviewed and adjusted accordingly: Yes Anticipated discharge: Home Within: within 24 hours
[2016-11-26] MEDS: PREDNISONE 20 MG TABLET PO SCH (17:01)
[2016-11-26] MEDS: ISOSORBIDE MONONITRATE 60 MG TAB.ER.24H PO SCH (17:02)
[2016-11-27] MEDS: HEPARIN SOD (PORCINE) 5,000 UNIT/ML 1 ML SYRINGE SUBCUT SCH (06:52)
[2016-11-27] MEDS: AMOXICILLIN TR/POT CLAVULANATE 500-125 MG TAB PO SCH (06:53)
[2016-11-27 08:50] VITALS: BP 134/96
[2016-11-27] MEDS ORDERED: ALBUTEROL SULFATE HFA (90 MCG/PUFF) 200 PUFF/8.5 GM MDI IH ONE (10:00)
[2016-11-27] MEDS ORDERED: ALBUTEROL SULFATE HFA (90 MCG/PUFF) 200 PUFF/8.5 GM MDI IH PRN (11:00)
[2016-11-27] MEDS: PREDNISONE 20 MG TABLET PO SCH (11:16)
[2016-11-27] MEDS: FAMOTIDINE 20 MG TABLET PO SCH (11:17)
[2016-11-27] MEDS: ASPIRIN 325 MG TABLET, ENT COATED PO SCH (11:17)
[2016-11-27] MEDS: FUROSEMIDE 40 MG TABLET PO SCH (11:17)
[2016-11-27] MEDS: DOCUSATE SODIUM 100 MG CAPSULE PO SCH (11:18)
[2016-11-27] MEDS: SERTRALINE HCL 50 MG TABLET PO SCH (11:18)
[2016-11-27] MEDS: CARVEDILOL 12.5 MG TABLET PO SCH (11:18)
--- NOTE | 2016-11-27 20:03 | PDOC DISCHARGE SUMMARY ---
General - Admit/Disc Date/PCP Admission Date/Primary Care Provider: 11/24/16 16:15 Discharge Date: 11/27/16 - Discharge Diagnosis (1) Acute on chronic systolic (congestive) heart failure Is this a current diagnosis for this admission?: Yes (2) Hypertensive emergency Is this a current diagnosis for this admission?: Yes (3) Left lower lobe pneumonia Is this a current diagnosis for this admission?: Yes (4) COPD exacerbation Is this a current diagnosis for this admission?: Yes (5) Acute hypoxemic respiratory failure Is this a current diagnosis for this admission?: Yes (6) Chronic opiate dependence Is this a current diagnosis for this admission?: Yes (7) Chronic respiratory alkalosis Is this a current diagnosis for this admission?: Yes (8) Renal mass, right Is this a current diagnosis for this admission?: Yes (9) Chronic kidney disease, stage III (moderate) Is this a current diagnosis for this admission?: Yes (10) Panic attack Is this a current diagnosis for this admission?: No (11) Tobacco dependency Is this a current diagnosis for this admission?: Yes (12) Obesity (BMI 30.0-34.9) Is this a current diagnosis for this admission?: Yes - Additional Information Resuscitation Status: Full Code Discharge Diet: Cardiac Discharge Activity: Activity As Tolerated, Balance Activity w/Rest, Weigh Daily Home Medications: Furosemide [Lasix 40 mg Tablet] 40 mg PO QAM 11/24/16 Oxycodone HCl/Acetaminophen [Percocet 10-325 mg Tablet] 1 tab PO BIDP PRN Sertraline HCl [Zoloft 50 mg Tablet] 50 mg PO DAILY 11/24/16 Albuterol Sulfate [Proair Respiclick] 2 puff IH Q6HP PRN #1 aer.pow.ba 11/27/16 Amox Tr/Potassium Clavulanate [Augmentin 875-125 mg Tablet] 1 tab PO BID #20 tablet 11/27/16 Aspirin [Ecotrin 325 mg EC Tablet] 325 mg PO DAILY #90 tabec 11/27/16 Carvedilol [Coreg 25 mg Tablet] 1 tab PO Q12 #60 tab 11/27/16 Docusate Sodium [Colace 100 mg Capsule] 100 mg PO BID #60 capsule 11/27/16 Furosemide [Lasix 40 mg Tablet] 40 mg PO DAILY #30 tablet 11/27/16 Isosorbide Mononitrate [Imdur 60 mg Tablet.er] 30 mg PO QPM #30 tab.er.24h 11/27 Prednisone [Deltasone 20 mg Tablet] 40 mg PO BID #30 tablet 11/27/16 Tiotropium Ericson [Spiriva Handihaler 18 mcg/dose (30 Dose)] 1 cap IH DAILY # 30 capsule 11/27/16 History of Present Illness History of Present Illness: AGUILAR MAHAN is a 51 year old male with a past medical history of hypertension , congestive heart failure, chronic kidney disease stage III who presents with several weeks of shortness of breath. Patient reports that he has been worsening over the past 1-1/2 weeks. He last saw his primary care physician proximally 1 month ago. He reports that over the past 1-1/2 month he has had increasing dyspnea on exertion, orthopnea, edema, and abdominal distention. Patient in the emergency department is found to have a blood pressure of 180s over 140s and is referred to the hospitalist service for hypoxia which is found to be this congestive heart failure, and hypertensive emergency. Hospital Course Hospital Course: Patient was initially placed on BiPAP and admitted to [facility]. He was treated for his hypertensive emergency with topical nitroglycerin, oral Coreg, and IV Lasix. Patient had significant improvement of his symptomatology upon diuresis. It was discovered, the patient had stopped his Lasix due to being told that this could bother his kidneys. Additionally, patient had quit smoking approximately 2 weeks prior and was found to have a COPD exacerbation. Patient was started on IV Solu-Medrol, oral Augmentin, and scheduled breathing treatments. Patient rapidly improved and was able to be removed from BiPAP the following day. Patient's cardiac enzymes were negative. His cholesterol was well controlled. His thyroid function was normal. Patient was continued to be diuresed and his steroids were transitioned to oral prednisone. Repeat chest x- ray revealed consolidation in his left lower lobe. Patient remained afebrile while on Augmentin. This was continued. Patient was advised that he would need a repeat chest x-ray in 6 weeks. Incidentally during his emergency department evaluation, a CT of the chest revealed a 4.5 cm mass versus hemorrhagic cyst of the right kidney. A renal ultrasound was performed which revealed a 5 x 4.8 cm complex cystic/solid mass in the right upper pole of the kidney worrisome for tumor. He also exhibited medical renal disease consistent with his underlying baseline creatinine of approximately 2. This was discussed with patient and his and he was referred outpatient to Dr. Morillo. He was strongly advised to have this followed up. He understands that this could be a malignancy. Patient was doing well off oxygen and ambulating prior to discharge. He was discharged in stable condition. Physical Exam Vital Signs: Temp Pulse Resp BP Pulse Ox 97.4 F 66 16 134/96 H 97 11/27/16 08:45 11/27/16 08:45 11/27/16 08:45 11/27/16 08:45 11/27/16 08:45 Intake & Output 11/26/16 11/27/16 11/28/16 06:59 06:59 06:59 Intake Total 2106 2296 Output Total 2550 1852 Balance -444 444 Weight 117.6 kg 118.6 kg Exam: General: Awake alert and oriented x3, no acute respiratory distress HEENT: AT/NC, right eye prior surgery, PRRL, EOMI, oropharynx is moist, pink, no scleral icterus, no conjunctival injection Neck: No JVD, trachea midline Chest: CTAB CV: Regular rate and rhythm, normal S1 and S2, no rub; no gallop; +SM Abdomen: Soft, nontender to palpation, nondistended, active bowel sounds; no rebound, rigidity, or guarding Extremities: No cyanosis, clubbing, edema Neuro: Cranial nerves II through XII are grossly intact without focal deficits; awake alert and oriented x3 Psych: Normal mood and affect Results Laboratory Results: 11/25/16 05:01 11/26/16 04:41 11/24/16 11/24/16 11/24/16 17:06 17:06 23:34 Creatine Kinase 240 H 200 H CK-MB (CK-2) 2.60 Troponin I 0.071 NT-Pro-B Natriuret Pep 11/24/16 11/25/16 11/25/16 23:34 05:04 05:04 Creatine Kinase 203 H CK-MB (CK-2) 2.67 2.32 Troponin I 0.065 0.052 NT-Pro-B Natriuret Pep 11/26/16 04:41 Creatine Kinase CK-MB (CK-2) Troponin I NT-Pro-B Natriuret Pep 1830 H Impressions: Chest CT 11/24/16 10:46 IMPRESSION: Cardiomegaly with prominent ascending aorta. Bandlike atelectasis in the right and left lung bases. 4.5 cm mass versus hemorrhagic cyst right kidney for which dedicated renal ultrasound is recommended for followup Renal Ultrasound 11/24/16 11:21 IMPRESSION: 5 x 4.8 cm complex cystic/ solid mass in the right upper pole kidney worrisome for tumor. Both kidneys exhibit cortical thinning and increased echogenicity from medical renal disease. Lung Scan-VQ NM 11/24/16 13:35 IMPRESSION: Low probability for pulmonary emboli. Chest X-Ray 11/26/16 06:00 IMPRESSION: INCREASING RETROCARDIAC AIRSPACE DISEASE SUGGESTIVE OF DEVELOPING PNEUMONIA. Qualifiers PATEINT BEING DISCHARGED WITH ANY OF THE FOLLOWING DIAGNOSIS?: Heart Failure HF Pt being discharged on ACEI for LVEF less than 40%?: No Reason(s) for not prescribing ACEI:: Contraindicated - CKD HF Pt being discharged on ARBS for LVEF less than 40%?: No Reason(s) for not prescribing ARBS:: Contraindicated - CKD HF Pt with Afib discharged with Warfarin?: No Reason(s) for not prescribing Warfarin:: Not indicated - no Fib HF Pt discharged on evidence-based Beta Tl:: Yes
== END 2016-11-27 11:52 | disposition home or self-care (01) | DRG 304 ==
LOC: ER 05:10 → EH 16:15 → UNDOADMIN 16:19 → 3W 20:30
PROVIDERS: ADMIT Emergency Medicine; ATTEND Emergency Medicine
PROC: 5A09457 Assistance with Respiratory Ventilation, 24-96 Consecutive Hours, Continuous Positive Airway Pressure (ICD-10-PCS; 2016-11-24)
PROC: 3E0234Z Introduction of Serum, Toxoid and Vaccine into Muscle, Percutaneous Approach (ICD-10-PCS; principal; 2016-11-27)
DX: I16.1 Hypertensive emergency (principal); I50.43 Acute on chronic combined systolic (congestive) and diastolic (congestive) heart failure; J96.21 Acute and chronic respiratory failure with hypoxia; J18.9 Pneumonia, unspecified organism; J44.1 Chronic obstructive pulmonary disease with (acute) exacerbation; F11.20 Opioid dependence, uncomplicated; E87.3 Alkalosis; I13.0 Hypertensive heart and chronic kidney disease with heart failure and stage 1 through stage 4 chronic kidney disease, or unspecified chronic kidney disease; N18.3 Chronic kidney disease, stage 3 (moderate); F17.200 Nicotine dependence, unspecified, uncomplicated; N28.1 Cyst of kidney, acquired; E66.9 Obesity, unspecified; I35.1 Nonrheumatic aortic (valve) insufficiency; F41.0 Panic disorder [episodic paroxysmal anxiety]; Z82.49 Family history of ischemic heart disease and other diseases of the circulatory system; Z83.3 Family history of diabetes mellitus; Z80.52 Family history of malignant neoplasm of bladder; Z79.82 Long term (current) use of aspirin; Z68.32 Body mass index [BMI] 32.0-32.9, adult; Z91.14 Patient's other noncompliance with medication regimen; Z23 Encounter for immunization; Z79.899 Other long term (current) drug therapy
CPT/HCPCS: 36415; 36600; 71010; 71020; 71250; 76775; 78582; 80048; 80053; 80061; 80307; 81001; 82550; 82553; 82803; 83735; 83880; 84439; 84443; 84484; 85025; 85379; 87040; 87086; 90686; 93005; 93010; 93306; 94640; 94660; 96374; 96375; 99285; A9540; A9567; J0360; J1644; J1940; J2060; J2270; J2930; J3490; J7512; J7620; Q9969

== ENCOUNTER 2017-01-01 18:14 | Emergency (ER) | payer SELFPAY ==
--- NOTE | 2017-01-01 19:19 | ER Document Report ---
ED Medical Screen (RME) - General Chief Complaint: Shortness Of Breath Stated Complaint: RESPRITORY PROBLEMS Time Seen by Provider: 01/01/17 19:16 Notes: 51-year-old male past history of congestive heart failure combined diastolic and systolic. Admitted last month for the same. Complains of increasing shortness of breath. I have greeted and performed a rapid initial assessment of this patient. A comprehensive ED assessment and evaluation of the patient, analysis of test results and completion of the medical decision making process will be conducted by additional ED providers. TRAVEL OUTSIDE OF THE [place] IN LAST 30 DAYS: No - Related Data Allergies/Adverse Reactions: No Known Allergies Allergy (Verified 01/01/17 18:27) Past Medical History - Past Medical History Cardiac Medical History: Reports: Hx Congestive Heart Failure, Hx Hypertension Pulmonary Medical History: Reports: Hx COPD Renal/ Medical History: Denies: Hx Peritoneal Dialysis Past Surgical History: Reports: Hx Orthopedic Surgery, Other - Right eye surgery - Immunizations Hx Diphtheria, Pertussis, Tetanus Vaccination: Yes History of Influenza Vaccine for 11/2016 - 04/2017 Season: No Physical Exam - Vital signs Vitals: Temp Pulse Resp BP Pulse Ox 98.5 F 89 28 H 150/107 H 98 01/01/17 18:27 01/01/17 18:27 01/01/17 18:27 01/01/17 18:27 01/01/17 18:27 Course - Vital Signs Vital signs: Temp Pulse Resp BP Pulse Ox 98.5 F 89 28 H 150/107 H 98 01/01/17 18:27 01/01/17 18:27 01/01/17 18:27 01/01/17 18:27 01/01/17 18:27
[2017-01-01 19:40] LABS: ABSOLUTE EOSINOPHILS # (AUTO) 0.4 10^3/uL (0.0-0.6); ABSOLUTE LYMPHOCYTES (AUTO) 1.2 10^3/uL (0.5-4.7); ABSOLUTE MONOCYTES (AUTO) 0.8 10^3/uL (0.1-1.4); ABSOLUTE NEUT (AUTO) 4.7 10^3/uL (1.7-8.2); BASOPHILS % (AUTO) 0.3 % (0-2); EOSINOPHILS % (AUTO) 5.2 % (0-6); HEMATOCRIT 46.6 % (37.9-51.0); HEMOGLOBIN 15.8 g/dL (13.5-17.0); HGB HCT DIFFERENCE 0.8; LYMPHOCYTES % (AUTO) 17.3 % (13-45); MEAN CORPUSCULAR HEMOGLOBIN 31.4 pg (27.0-33.4); MEAN CORPUSCULAR VOLUME 92 fl (80-97); MONOCYTES % (AUTO) 10.6 % (3-13); RED BLOOD COUNT 5.04 10^6/uL (4.35-5.55); RED CELL DISTRIBUTION WIDTH 14.1 % (11.5-14.0); SEGMENTED NEUTROPHILS % (AUTO) 66.6 % (42-78); WHITE BLOOD COUNT 7.1 10^3/uL (4.0-10.5)
--- NOTE | 2017-01-01 20:02 | RADIOLOGY REPORT (SQ) ---
EXAM DESCRIPTION: CHEST SINGLE VIEW COMPLETED DATE/TIME: 01/01/2017 7:47 pm REASON FOR STUDY: SOB, PMH CHF COMPARISON: 11/26/2016. NUMBER OF VIEWS: One view. TECHNIQUE: Single frontal radiographic view of the chest acquired. LIMITATIONS: None. FINDINGS: LUNGS AND PLEURA: No opacities, masses or pneumothorax. No pleural effusion. MEDIASTINUM AND HILAR STRUCTURES: No masses. Contour normal. HEART AND VASCULAR STRUCTURES: Heart normal in size. Normal vasculature. BONES: No acute findings. HARDWARE: None in the chest. OTHER: No other significant finding. IMPRESSION: NO SIGNIFICANT RADIOGRAPHIC FINDING IN THE CHEST. TECHNICAL DOCUMENTATION: JOB ID: [id number] [employer]- All Rights Reserved
[2017-01-01 20:06] LABS: ALANINE AMINOTRANSFERASE 41 U/L (21-72); ALBUMIN 3.7 g/dL (3.5-5.0); ALKALINE PHOSPHATASE 75 U/L (38-126); ANION GAP 11 (5-19); ASPARTATE AMINO TRANSFERASE 29 U/L (17-59); BILIRUBIN,DIRECT 0.3 mg/dL (0.0-0.4); BILIRUBIN,TOTAL 0.7 mg/dL (0.2-1.3); BLOOD UREA NITROGEN 21 mg/dL (7-20); CALCIUM 9.4 mg/dL (8.4-10.2); CARBON DIOXIDE 25 mmol/L (22-30); CHLORIDE 107 mmol/L (98-107); CREATINE KINASE 105 U/L (55-170); CREATININE RESULT 1.77 mg/dL (0.52-1.25); GLUCOSE 84 mg/dL (75-110); POTASSIUM 4.3 mmol/L (3.6-5.0); SODIUM 142.5 mmol/L (137-145); TOTAL PROTEIN 6.1 g/dL (6.3-8.2)
--- NOTE | 2017-01-01 20:11 | EKG REPORT ---
SEVERITY:- ABNORMAL ECG - SINUS RHYTHM LEFT ATRIAL ABNORMALITY ABNORMAL T, CONSIDER ISCHEMIA, LATERAL LEADS : Confirmed by: Jonathan Hernandez MD 01-Jan-2017 20:10:43
[2017-01-01] MEDS ORDERED: FUROSEMIDE INJ/PF 40 MG/4 ML SDV IV ONE (20:23)
--- NOTE | 2017-01-01 20:27 | ER Document Report ---
ED Respiratory Problem - General Chief Complaint: Shortness Of Breath Stated Complaint: RESPRITORY PROBLEMS Time Seen by Provider: 01/01/17 19:16 Mode of Arrival: Ambulatory Information source: Patient TRAVEL OUTSIDE OF THE [place] IN LAST 30 DAYS: No - HPI Patient complains to provider of: Short of breath Onset: This morning Duration: Worse/persistent Quality of pain: No pain Context: Hx CHF Short of Breath: Moderate Chest pain/discomfort: Tightness Cough: Productive Sputum amount: Small Sputum color: White Sputum consistency: Mucoid Associated symptoms: Cough, Short of breath Similar symptoms previously: Yes Recently seen / treated by doctor: Yes Notes: Patient is a 51-year-old male with a history of hypertension, congestive heart failure and anxiety, he presents to the emergency room today complaining of shortness of breath that has been worsening since he was admitted to this facility 2 weeks ago for congestive heart failure, he was also admitted for pneumonia reportedly at that time, he continues to have a cough that is productive of whitish phlegm, denies any fever, he does report headaches which she relates to being likely from isosorbide treatments, he reports that he feels as though he cannot take a deep breath and gets very dyspneic on exertion , he currently takes 40 mg of Lasix daily - Related Data Allergies/Adverse Reactions: No Known Allergies Allergy (Verified 01/01/17 18:27) Past Medical History - General Information source: Patient - Social History Smoking Status: Unknown if Ever Smoked Family History: CAD, COPD, DM, Hypertension, Malignancy - Father with bladder cancer Patient has suicidal ideation: No Patient has homicidal ideation: No - Past Medical History Cardiac Medical History: Reports: Hx Congestive Heart Failure, Hx Hypertension Pulmonary Medical History: Reports: Hx COPD Renal/ Medical History: Denies: Hx Peritoneal Dialysis Past Surgical History: Reports: Hx Orthopedic Surgery, Other - Right eye surgery - Immunizations Hx Diphtheria, Pertussis, Tetanus Vaccination: Yes Review of Systems - Review of Systems Constitutional: No symptoms reported EENT: No symptoms reported Cardiovascular: Edema Respiratory: See HPI Gastrointestinal: No symptoms reported Genitourinary: No symptoms reported Male Genitourinary: No symptoms reported Musculoskeletal: No symptoms reported Skin: No symptoms reported Hematologic/Lymphatic: No symptoms reported Neurological/Psychological: No symptoms reported -: Yes All other systems reviewed and negative Physical Exam - Vital signs Vitals: Temp Pulse Resp BP Pulse Ox 98.5 F 89 28 H 150/107 H 98 01/01/17 18:27 01/01/17 18:27 01/01/17 18:27 01/01/17 18:27 01/01/17 18:27 Interpretation: Normal - General General appearance: Appears well, Alert - HEENT Head: Normocephalic, Atraumatic Eyes: Other - Right eye enucleated with patch Pupils: PERRL - Respiratory Respiratory status: No respiratory distress Chest status: Nontender Breath sounds: Normal Chest palpation: Normal - Cardiovascular Rhythm: Regular Heart sounds: Normal auscultation Murmur: No - Abdominal Inspection: Normal Distension: No distension Bowel sounds: Normal Tenderness: Nontender Organomegaly: No organomegaly - Back Back: Normal, Nontender - Extremities General upper extremity: Normal inspection, Nontender, Normal color, Normal ROM , Normal temperature General lower extremity: Normal inspection, Nontender, Edema, Normal color, Normal ROM, Normal temperature, Normal weight bearing. No: Alex's sign - Neurological Neuro grossly intact: Yes Cognition: Normal Orientation: AAOx4 Ras Coma Scale Eye Opening: Spontaneous Ras Coma Scale Verbal: Oriented Ras Coma Scale Motor: Obeys Commands Dillard Coma Scale Total: 15 Speech: Normal Motor strength normal: LUE, RUE, LLE, RLE Sensory: Normal - Psychological Associated symptoms: Normal affect, Normal mood - Skin Skin Temperature: Warm Skin Moisture: Dry Skin Color: Normal Course - Re-evaluation Re-evalutation: 01/01/17 21:36 Patient reports feeling much better after a dose of IV Lasix, he had significant output, symptoms consistent with congestive heart failure, he was advised to take 60 mg of Lasix for the next 4 days and then follow-up with his primary care provider for repeat evaluation, patient acknowledges understanding and agreement with this plan - Vital Signs Vital signs: Temp Pulse Resp BP Pulse Ox 98.5 F 89 20 135/99 H 97 01/01/17 18:27 01/01/17 18:27 01/01/17 22:01 01/01/17 22:01 01/01/17 22:01 - Laboratory Result Diagrams: 01/01/17 19:25 01/01/17 19:25 Laboratory results interpreted by me: 01/01/17 01/01/17 01/01/17 19:25 19:25 19:25 RDW 14.1 H BUN 21 H Creatinine 1.77 H Est GFR ( Amer) 49 L Est GFR (Non-Af Amer) 41 L NT-Pro-B Natriuret Pep 3060 H Total Protein 6.1 L - Diagnostic Test Radiology reviewed: Image reviewed, Reports reviewed - EKG Interpretation by Me EKG shows normal: Sinus rhythm Rate: Normal Rhythm: NSR Discharge - Discharge Clinical Impression: Acute on chronic systolic (congestive) heart failure Condition: Stable Disposition: HOME, SELF-CARE Instructions: Congestive Heart Failure ([facility]) Additional Instructions: Take 60 mg of Lasix/furosemide for the next 4 days. Follow-up with your primary care provider within the next week for further evaluation and treatment. Return to the emergency room immediately if symptoms worsen or any additional concerns. Prescriptions: Furosemide [Lasix] 60 mg PO DAILY #12 tablet
[2017-01-01 20:28] LABS: TROPONIN I 0.085 ng/mL
[2017-01-01 22:21] VITALS: BP 135/99
== END 2017-01-01 22:08 | disposition home or self-care (01) ==
LOC: ER 18:14
DX: I50.9 Heart failure, unspecified (principal); J44.9 Chronic obstructive pulmonary disease, unspecified
CPT/HCPCS: 93005; 99285; 96374; 36415; 82550; 85025; 80053; 84484; 83880; 71010; 93010; J1940

== ENCOUNTER 2017-02-02 15:17 | Emergency (ER) | payer OTHER ==
--- NOTE | 2017-02-02 16:01 | ER Document Report ---
ED Medical Screen (RME) - General Chief Complaint: Chest Pain Stated Complaint: CHEST PAIN Time Seen by Provider: 02/02/17 15:57 Notes: Patient has a history of CHF and COPD. He presents complaining of decreased urination with his water pill and feeling short of breath with a cough. He states he is concerned that he may be having a CHF exacerbation. He states he was recently hospitalized several months ago with a CHF exacerbation this feels similar. He is also having chest pain. TRAVEL OUTSIDE OF THE [place] IN LAST 30 DAYS: No - Related Data Allergies/Adverse Reactions: No Known Allergies Allergy (Verified 02/02/17 15:19) Past Medical History - Social History Chew tobacco use (# tins/day): No Frequency of alcohol use: Occasional Drug Abuse: None - Past Medical History Cardiac Medical History: Reports: Hx Congestive Heart Failure, Hx Hypertension Pulmonary Medical History: Reports: Hx COPD Renal/ Medical History: Denies: Hx Peritoneal Dialysis Past Surgical History: Reports: Hx Orthopedic Surgery, Other - Right eye surgery - Immunizations Hx Diphtheria, Pertussis, Tetanus Vaccination: Yes History of Influenza Vaccine for 11/2016 - 04/2017 Season: No Physical Exam - Vital signs Vitals: Temp Pulse Resp BP Pulse Ox 97.6 F 92 20 151/111 H 96 02/02/17 15:29 02/02/17 15:29 02/02/17 15:29 02/02/17 15:29 02/02/17 15:29 Course - Vital Signs Vital signs: Temp Pulse Resp BP Pulse Ox 97.6 F 92 20 151/111 H 96 02/02/17 15:29 02/02/17 15:29 02/02/17 15:29 02/02/17 15:29 02/02/17 15:29
--- NOTE | 2017-02-02 16:29 | RADIOLOGY REPORT (SQ) ---
EXAM DESCRIPTION: CHEST PA/LAT COMPLETED DATE/TIME: 02/02/2017 4:19 pm REASON FOR STUDY: sob/cough COMPARISON: 01/01/2017. EXAM PARAMETERS: NUMBER OF VIEWS: two views TECHNIQUE: Digital Frontal and Lateral radiographic views of the chest acquired. RADIATION DOSE: NA LIMITATIONS: none FINDINGS: LUNGS AND PLEURA: No opacities, masses or pneumothorax. No pleural effusion. MEDIASTINUM AND HILAR STRUCTURES: No masses or contour abnormalities. HEART AND VASCULAR STRUCTURES: Stable cardiomegaly. No evidence for failure. BONES: No acute findings. HARDWARE: None in the chest. OTHER: No other significant finding. IMPRESSION: STABLE CARDIOMEGALY. NO ACUTE RADIOGRAPHIC FINDING IN THE CHEST. TECHNICAL DOCUMENTATION: JOB ID: [id number] [employer]- All Rights Reserved
[2017-02-02 16:42] LABS: ABSOLUTE EOSINOPHILS # (AUTO) 0.5 10^3/uL (0.0-0.6); ABSOLUTE LYMPHOCYTES (AUTO) 1.9 10^3/uL (0.5-4.7); ABSOLUTE MONOCYTES (AUTO) 0.6 10^3/uL (0.1-1.4); ABSOLUTE NEUT (AUTO) 4.1 10^3/uL (1.7-8.2); BASOPHILS % (AUTO) 0.7 % (0-2); EOSINOPHILS % (AUTO) 6.7 % (0-6); HEMATOCRIT 44.7 % (37.9-51.0); HGB HCT DIFFERENCE 0.3; LYMPHOCYTES % (AUTO) 26.9 % (13-45); MEAN CORPUSCULAR HEMOGLOBIN 30.9 pg (27.0-33.4); MEAN CORPUSCULAR HGB CONC 33.6 g/dL (32.0-36.0); MEAN CORPUSCULAR VOLUME 92 fl (80-97); MONOCYTES % (AUTO) 8.2 % (3-13); RED BLOOD COUNT 4.86 10^6/uL (4.35-5.55); RED CELL DISTRIBUTION WIDTH 13.8 % (11.5-14.0); SEGMENTED NEUTROPHILS % (AUTO) 57.5 % (42-78); WHITE BLOOD COUNT 7.2 10^3/uL (4.0-10.5)
[2017-02-02] MEDS ORDERED: HYDROXYZINE PAMOATE 50 MG CAPSULE PO ONE (16:45)
[2017-02-02] MEDS ORDERED: CLONIDINE HCL 0.1 MG TABLET PO ONE (16:45)
[2017-02-02 17:01] LABS: ALANINE AMINOTRANSFERASE 69 U/L (21-72); ALBUMIN 4.3 g/dL (3.5-5.0); ALKALINE PHOSPHATASE 111 U/L (38-126); ANION GAP 12 (5-19); ASPARTATE AMINO TRANSFERASE 54 U/L (17-59); BILIRUBIN,DIRECT 0.3 mg/dL (0.0-0.4); BILIRUBIN,TOTAL 0.9 mg/dL (0.2-1.3); BLOOD UREA NITROGEN 18 mg/dL (7-20); CALCIUM 9.9 mg/dL (8.4-10.2); CARBON DIOXIDE 24 mmol/L (22-30); CHLORIDE 107 mmol/L (98-107); CREATININE RESULT 2.11 mg/dL (0.52-1.25); GLUCOSE 96 mg/dL (75-110); POTASSIUM 4.6 mmol/L (3.6-5.0); SODIUM 143.4 mmol/L (137-145); TOTAL PROTEIN 6.7 g/dL (6.3-8.2)
[2017-02-02 17:21] LABS: TROPONIN I 0.144 ng/mL
--- NOTE | 2017-02-02 18:32 | ER Document Report ---
ED General - General Chief Complaint: Chest Pain Stated Complaint: CHEST PAIN Time Seen by Provider: 02/02/17 15:57 Notes: Patient says he has been having shortness of breath along with a cough and difficulty breathing intermittently over the past week and a half. He is having episodes that last for about 30 minutes. When I entered the room, the patient began to breathe rapidly as if he was hyperventilating. He says this is the type of episode is talking about. He denies any chest pains. He has a history of congestive heart failure as well as hypertension and renal insufficiency. He is on blood pressure medication, but was also on lisinopril which was discontinued recently because of his renal insufficiency. Patient has not had any vomiting or diarrhea. Has been coughing up white phlegm. Does not have any fever. TRAVEL OUTSIDE OF THE [place] IN LAST 30 DAYS: No - Related Data Allergies/Adverse Reactions: No Known Allergies Allergy (Verified 02/02/17 15:19) Past Medical History - Social History Smoking Status: Former Smoker - Stopped about 3 months ago. 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 EENT: Denies eye, ear, nose or mouth or throat pain or other symptoms. CARDIOVASCULAR: Denies chest pain but gets sore when he has 1 of these episodes.. RESPIRATORY: See HPI. GASTROINTESTINAL: Denies abdominal pain or nausea, vomiting, but has some diarrhea. GENITOURINARY: Denies difficulty or painful urinating, urinary frequency, blood in urine. MUSCULOSKELETAL: Denies back or neck pain. Denies joint pain or swelling. SKIN: Denies rash or skin lesions. No significant pretibial pitting edema present. NEUROLOGICAL: Denies LOC or altered mental status. Denies headache. Denies sensory loss or motor deficits. ALL OTHER SYSTEMS REVIEWED AND NEGATIVE. Physical Exam - Vital signs Vitals: Temp Pulse Resp BP Pulse Ox 97.6 F 92 20 151/111 H 96 02/02/17 15:29 02/02/17 15:29 02/02/17 15:29 02/02/17 15:29 02/02/17 15:29 Interpretation: Hypertensive - Notes Notes: PHYSICAL EXAMINATION: GENERAL: Well-appearing, in no acute distress. Blood pressure up. As I entered the room, patient began to breathe very loudly and rapidly and did this for about a minute or 2 and then, gradually relax and felt better. He says this is what these episodes are like. To me, it appeared that he was hyperventilating. I asked him if he had been stressed or anxious or worried or nervous about anything of late and he kind of rolled his eyes and smiled as if to say yes and said something about always being stressed. HEAD: Atraumatic, normocephalic. EYES: Patient wears an eye patch over his right eye in which he is totally blind. The left eye has intact extraocular movements. ENT: oropharynx clear without exudates. Moist mucous membranes. NECK: Normal range of motion, supple. LUNGS: Breath sounds clear and equal bilaterally. No wheezes. Very few rales. HEART: Regular rate and rhythm without murmurs. ABDOMEN: Soft, nontender. No guarding or rebound. BACK: No tenderness throughout entire back. EXTREMITIES: Normal range of motion without pain. NEUROLOGICAL: Normal speech, normal gait. Normal sensory, motor, and reflex exams. Awake, alert, and oriented x3. Cranial nerves normal. PSYCH: Normal mood, normal affect. SKIN: Warm, dry, no rashes. Course - Re-evaluation Re-evalutation: 02/02/17 18:53 Patient's blood pressure is poorly controlled. He recently had his lisinopril discontinued because of his renal insufficiency. He needs to be back on some additional blood pressure medication and I am putting him on clonidine 0.1 twice a day. I have also told him to take an extra Lasix pill for the next couple of days as he may have some increased fluid since his BNP is in the 3000s. His chest x-ray does not show any evidence of congestive heart failure and he does not have any pitting edema of either pretibial area. Negative Homans bilaterally. Patient was encouraged to take his medications as he supposed to. He needed a prescription for his Lasix which I did fill. And, since patient really does seem to be anxious and have some degree of anxiety or stress involved, I put him on Vistaril to take when needed for anxiousness or when he is having these episodes which may be panic attacks. - Vital Signs Vital signs: Temp Pulse Resp BP Pulse Ox 97.6 F 92 16 156/126 H 97 02/02/17 15:29 02/02/17 15:29 02/02/17 18:46 02/02/17 18:46 02/02/17 18:46 - Laboratory Result Diagrams: 02/02/17 16:29 02/02/17 16:29 Laboratory results interpreted by me: 02/02/17 02/02/17 02/02/17 16:29 16:29 16:29 Eosinophils % 6.7 H D-Dimer Creatinine 2.11 H Est GFR ( Amer) 40 L Est GFR (Non-Af Amer) 33 L NT-Pro-B Natriuret Pep 3010 H 02/02/17 16:29 Eosinophils % D-Dimer 0.55 H Creatinine Est GFR ( Amer) Est GFR (Non-Af Amer) NT-Pro-B Natriuret Pep 02/02/17 18:52 Patient's d-dimer is 0.55, just 0.05 above the upper range of negative. He has been having symptoms for a week and a half. He has a heart rate less than 100 and his oxygen saturation level was normal. I do not think patient has enough signs or symptoms to suggest the need to do a CTA for a near elevation of the d- dimer of 0.05. - Diagnostic Test Radiology results interpreted by me: 02/02/17 18:50 Chest x-ray shows stable moderate cardiac enlargement, but no overt congestive heart failure. - EKG Interpretation by Me EKG shows normal: Sinus rhythm Rate: Normal Rhythm: NSR Voltage: Consistant with LVH - Changes consistent with ischemia or strain. No ST elevation and nothing that looks like an acute finding. Discharge - Discharge Clinical Impression: Dyspnea, Hypertension, Anxiety Condition: Stable Disposition: HOME, SELF-CARE Additional Instructions: Dyspnea, Nonspecific You were evaluated for shortness of breath, or dyspnea. Dyspnea has many causes, and some are more serious than others. Sometimes it's impossible to diagnose the cause of dyspnea with the tests that are available on an emergency basis. Based on our evaluation today, you do not need hospitalization now. We found no evidence of pneumonia, collapsed lung, blood clots in the lung, tumors , or heart failure. Causes of non-specific dyspnea can include asthma or bronchospasm, hyperventilation, emotional distress, heart disease, emphysema, fibrosis of the lung, and stiffness of the chest wall. In healthy individuals with a single episode, it's sometimes reasonable to do nothing but wait to see if the problem occurs again. Additional tests used to evaluate dyspnea can include cardiac stress testing, echocardiography, pulmonary function testing, CAT scan of the chest, bronchoscopy or pulmonary biopsy. Return if shortness of breath persists or worsens, or if you develop chest pain, fever, cough, confusion, or fainting. Congestive Heart Failure You have been diagnosed as having congestive heart failure (CHF). CHF occurs when the heart is unable to pump blood efficiently, leading to fluid buildup in the veins and lungs. Typical symptoms are swelling of the legs, shortness of breath on minor exertion, and fatigue. CHF is treated with salt restriction, medicine to eliminate excess water and salt from the body, and medication to help the heart contract more efficiently. Eliminate added salt and salty foods in your diet. Decrease your activity until excess fluid has been eliminated. It will also be helpful to raise the head of your bed so you can sleep more easily. Keep a daily record of your weight. This will help your physician monitor your progress. Once extra water has been eliminated, light aerobic exercise daily -- such as walking -- will be helpful (unless your physician has told you to restrict activity for other reasons). Be sure to follow up with the physician as instructed. Contact the doctor at once if you worsen in any way. HIGH BLOOD PRESSURE REQUIRING TREATMENT: Your blood pressure is high. This is called "hypertension." Today's reading was 151/111 (normal is less than 140/90). Your history and exam suggest that this is not a temporary problem. You need treatment of your blood pressure. If left untreated, high blood pressure greatly increases your risk of heart attack and stroke. Please don't ignore this problem. If you have blood pressure medicine but aren't using it regularly, start taking it again. Some simple things you can do to help are: Get some aerobic exercise for at least 20 minutes on a daily basis. (See your doctor before beginning any new exercise program.) Eat a low-fat diet. Lose excess weight. Avoid salty foods and avoid adding salt to any of the foods you eat. Avoid diet pills, decongestants, "energizing" herbs, and other medicines that elevate blood pressure. There are many different medicines that treat blood pressure. If your medication causes unpleasant side effects, call your doctor. There are others you can try. Treating hypertension is a life-long investment in your health. CLONIDINE (CATAPRES): Clonidine is blood-pressure medicine. It works in your brain, making the nervous system relax the blood vessels. This medicine can also be used for symptoms of narcotic withdrawal. Clonidine frequently causes dry mouth, drowsiness, and dizziness. These symptoms go away as you continue to use it. Rest for the first couple of days. Don't drive or use machinery until you're back to normal. Never stop clonidine suddenly! There can be a "rebound" severe increase in blood pressure, headache, and agitation. Be sure you always have enough of the medicine. Call the doctor if you have any new symptoms such as skin rash, weakness, severe lightheadedness, chest pain, headache, or depression. A prescription for clonidine has been provided for you to take twice a day for the next 10 days to help lower your blood pressure. Diuretic (Lasix) We have prescribed a diuretic medication. Diuretics are often called "water pills." The medicine flushes excess salt and water from the body. Diuretics are used for fluid retention (such as heart failure, cirrhosis, or lung disease) and for blood pressure control. Often diuretics are combined with other medicines in the same pill. Most patients prefer to take the medicine in the morning. Diuretics make extra urine, which can be a problem if you take the pill at night. Diuretics make you lose potassium. Sometimes a good diet with plenty of fruit is enough to replace it. Sometimes a potassium supplement is necessary. Or, the diuretic may be combined with medicines that prevent potassium loss. We usually recommend a blood potassium test in a few weeks. Contact your doctor if you develop extreme fatigue, muscle weakness, lethargy, confusion, or palpitations. Increase your dose of Lasix to twice a day or 2 pills at a time instead of the usual 1 pill for the next 2 days, Monday and Monday. Anxiety The physician feels that some of your health problems are being caused by anxiety. Anxiety affects your health in many ways. Anxiety alone can cause palpitations, sweats, chest pains, abdominal pains, shortness of breath, and headaches. It contributes to ulcer disease, high blood pressure, irritable bowel syndrome, and has been shown to cause flare-ups of many other diseases. Anxiety is not a simple disorder to treat. If the anxiety is due to recent life stresses, you may simply need time to "work through" the changes. If the anxiety is due to an underlying unhappiness with yourself or due to psychiatric disturbance, professional help will be needed. Your physician can refer you for further help if needed. Anti-anxiety medication is occasionally given if the stress is acute or if you are having trouble sleeping. Chronic or frequent use of these medications is not a good idea because the body becomes reliant on it, preventing you from dealing with life's normal stresses. Panic Attack The cause of panic attacks is unknown. Symptoms can include chest pain, shortness of breath, palpitations, sweats, and a sense of smothering or impending doom. In time, the panic attacks can lead to generalized anxiety and phobias. Because the symptoms can mimic heart attack, pulmonary embolism, and other serious diseases, the physician has evaluated you for these conditions. There is no evidence of a serious problem. An acute panic attack usually goes away by itself without treatment. A severe attack can be treated with medicine to calm you. Long-term, antidepressant medicines may help prevent attacks. Counselling can also be very beneficial in dealing with panic attacks. Panic attacks are less likely if you are getting regular exercise, proper diet, and plenty of sleep. It's normal for panic attacks to cause many frightening symptoms. However, you should call or return if your symptoms change significantly or if you are worsening. There may be some degree of anxiety or panic attack in your symptoms are having. I have written you a prescription for Vistaril for you to try to see if that may help your symptoms. If you want to take Benadryl, [id number] , pills instead, they are very effective as well. None of these medications are addicting. FOLLOW-UP CARE: If you have been referred to a physician for follow-up care, call the physician s office for an appointment as you were instructed or within the next two days. If you experience worsening or a significant change in your symptoms, notify the physician immediately or return to the Emergency Department at any time for re-evaluation. Call your primary care provider (Kerrie Dorsey) office tomorrow to schedule an appointment to have your blood pressure rechecked and medications reviewed the first of the week. Take all of your medications with you when you go to see Ms. Dorsey. Prescriptions: Clonidine HCl 0.1 mg PO BID #15 tablet Furosemide [Lasix 40 mg Tablet] 40 mg PO QAM #20 tablet Hydroxyzine Pamoate [Vistaril 50 mg Capsule] 50 mg PO QIDP PRN #20 capsule PRN Reason: Referrals: KERRIE DORSEY, EQUIPMENT INSTALLER [Primary Care Provider] - Follow up in 1 week
[2017-02-02 18:50] VITALS: BP 156/126
--- NOTE | 2017-02-02 21:56 | EKG REPORT ---
SEVERITY:- ABNORMAL ECG - SINUS RHYTHM LEFT ATRIAL ABNORMALITY ABNORMAL T, CONSIDER ISCHEMIA, LATERAL LEADS : Confirmed by: Lai Marin 02-Feb-2017 21:55:56
== END 2017-02-02 18:50 | disposition home or self-care (01) ==
LOC: ER 15:17
DX: I11.0 Hypertensive heart disease with heart failure (principal); I50.9 Heart failure, unspecified; Z79.899 Other long term (current) drug therapy; N28.9 Disorder of kidney and ureter, unspecified; J44.9 Chronic obstructive pulmonary disease, unspecified; F41.9 Anxiety disorder, unspecified; R05 Cough; R06.02 Shortness of breath; Z87.891 Personal history of nicotine dependence; Z82.49 Family history of ischemic heart disease and other diseases of the circulatory system
CPT/HCPCS: 36415; 71020; 80053; 83880; 84484; 85025; 85379; 93005; 93010; 99285

== ENCOUNTER 2017-02-17 11:44 | Inpatient (IN) | payer OTHER ==
[2017-02-17] MEDS ORDERED: IPRATROPIUM/ALBUTEROL 0.5-2.5 MG/3 ML AMPUL NEB ONE ×3 (12:28→12:34)
[2017-02-17] MEDS ORDERED: METHYLPREDNISOLONE INJ 125 MG/2 ML SDV ONE (12:28)
[2017-02-17] MEDS ORDERED: METHYLPREDNISOLONE INJ 125 MG/2 ML SDV IV ONE (12:34)
--- NOTE | 2017-02-17 12:36 | ER Document Report ---
ED General - General Chief Complaint: Breathing Difficulty Stated Complaint: DIFFICULTY BREATHING Time Seen by Provider: 02/17/17 12:24 Notes: 51-year-old male with hypertension CHF CAD and COPD presents with several hours of worsening shortness of breath and chest pressure "like an elephant is sitting on my chest" with mild cough and positive wheezing. No leg swelling or fever. Critically ill. Seen by me as she was delivered to room 13 from triage. TRAVEL OUTSIDE OF THE [place] IN LAST 30 DAYS: No - Related Data Allergies/Adverse Reactions: No Known Allergies Allergy (Verified 02/02/17 15:19) Home Medications: Current Home Medications Aspirin [Aspirin 81 mg Chewable Tablet] 1 tab PO DAILY 02/17/17 [History] Carvedilol [Coreg 25 mg Tablet] 12.5 mg PO Q12 02/17/17 [History] Past Medical History - Social History Smoking Status: Never Smoker Family History: Reviewed & Not Pertinent, CAD, COPD, DM, Hypertension, Malignancy - Father with bladder cancer Patient has suicidal ideation: No Patient has homicidal ideation: No - Past Medical History Cardiac Medical History: Reports: Hx Congestive Heart Failure, Hx Hypertension Pulmonary Medical History: Reports: Hx COPD Endocrine Medical History: Denies: Hx Diabetes Mellitus Type 1, Hx Diabetes Mellitus Type 2 Renal/ Medical History: Denies: Hx Peritoneal Dialysis Past Surgical History: Reports: Hx Orthopedic Surgery, Other - Right eye surgery - Immunizations Hx Diphtheria, Pertussis, Tetanus Vaccination: Yes Review of Systems - Review of Systems Notes: REVIEW OF SYSTEMS GEN: Denies fever, chills, weight loss ENT: Denies sore throat, nasal discharge, ear pain EYES: Denies blurry vision, eye pain, discharge CV: Denies chest pain, palpitations, edema RESP: Cough wheezing shortness of breath g GI: Denies abdominal pain, nausea, vomiting, diarrhea MSK: Denies joint pain/swelling, edema, SKIN: Denies rash, skin lesions LYMPH: Denies swollen glands/lymph nodes NEURO: Denies headache, focal weakness or numbness, dizziness PSYCH: Denies depression, suicidal or homicidal ideation PHYSICAL EXAMINATION General: Recent acute distress Head: Atraumatic, normocephalic ENT: Mouth normal, oropharynx moist, no exudates or tonsillar enlargement Eyes: Conjunctiva normal, pupils equal, lids normal Neck: No JVD, supple, no guarding CVS: Normal rate, regular rhythm, no murmurs Resp: Severe respiratory distress with prolonged respiratory phase bilateral wheezing and decreased air entry GI: Nondistended, soft, no tenderness to palpation, no rebound or guarding Ext: No deformities, no edema, normal range of motion in upper and lower ext Back: No CVA or midline TTP Skin: No rash, warm Lymphatic: No lymphadeopathy noted Neuro: Awake, alert. Face symmetric. GCS 15. Physical Exam - Vital signs Vitals: Temp Pulse Resp BP Pulse Ox 97.9 F 82 18 143/99 H 98 02/17/17 11:51 02/17/17 11:51 02/17/17 11:51 02/17/17 11:51 02/17/17 11:51 Course - Re-evaluation Re-evalutation: 02/17/17 12:35 Acute shortness of breath and chest pressure. Hypoxic at triage. Differential includes COPD greater than CHF plus or minus acute coronary syndrome. Plan: Seen by me immediately back to room. EKG chest x-ray labs including VBG troponin. Fluid was being hung by asked to stop it temporarily. Nebs and steroids ordered by triage provider. 02/17/17 14:20 Patient reassessed at 2:20 PM. Still feeling quite tight. Second albuterol neb ordered. Has received steroids. Troponin pending but the rest of his labs are normal and there is no CHF on his chest x-ray. Likely this is a severe COPD exacerbation. Rule out ACS. Will be admitted. 02/17/17 14:26 Troponin elevation. Less than prior. Doubt true ACS less more likely leak or demand ischemia, no acute changes. Discussed with Dr. Barrera for admission. - Vital Signs Vital signs: Temp Pulse Resp BP Pulse Ox 97.9 F 82 21 H 139/112 H 99 02/17/17 11:51 02/17/17 11:51 02/17/17 13:35 02/17/17 13:35 02/17/17 13:35 - Laboratory Result Diagrams: 02/17/17 12:40 02/17/17 12:40 Laboratory results interpreted by me: 02/17/17 12:40 Chloride 111 H BUN 23 H Creatinine 1.79 H Est GFR ( Amer) 49 L Est GFR (Non-Af Amer) 40 L Glucose 149 H Total Protein 6.1 L - EKG Interpretation by Me EKG shows normal: Sinus rhythm Rate: Normal Rhythm: NSR When compared to previous EKG there are: No significant change Additional EKG results interpreted by me: 02/17/17 14:[address] or T waves, no ST or T-wave ischemia Critical Care Note - Critical Care Note Total time excluding time spent on procedures (mins): 35 Comments: The above patient is critically ill. Not including procedures, but including direct re-evaluations, speaking with patient and/or consultants, interpreting results, and documenting, I spent the total amount of minute listed listed above on critical care time Discharge - Discharge Clinical Impression: COPD with acute exacerbation Condition: Fair Disposition: ADMITTED OBSERVATION Unit Admitted: Telemetry Referrals: LATASHA BRAXTON NP [Primary Care Provider] - Follow up as needed
--- NOTE | 2017-02-17 12:43 | ER Document Report ---
ED Medical Screen (RME) - General Mode of Arrival: Wheelchair Information source: Patient TRAVEL OUTSIDE OF THE [place] IN LAST 30 DAYS: No <RENETTA GUERRERO - Last Filed: 02/17/17 12:41> <SETH PIEDRA - Last Filed: 02/17/17 14:04> - General Chief Complaint: Breathing Difficulty Stated Complaint: DIFFICULTY BREATHING Time Seen by Provider: 02/17/17 12:24 Notes: Patient is a 51 year old male presenting to the emergency department with respiratory distress. Patient states he has been coughing for the last few days. Patient was immediately taking to the back and placed on oxygen. (RENETTA GUERRERO) - Related Data Allergies/Adverse Reactions: No Known Allergies Allergy (Verified 02/02/17 15:19) Home Medications: Current Home Medications Aspirin [Aspirin 81 mg Chewable Tablet] 1 tab PO DAILY 02/17/17 [History] Carvedilol [Coreg 25 mg Tablet] 12.5 mg PO Q12 02/17/17 [History] Past Medical History - Past Medical History Cardiac Medical History: Reports: Hx Congestive Heart Failure, Hx Hypertension Pulmonary Medical History: Reports: Hx COPD Endocrine Medical History: Denies: Hx Diabetes Mellitus Type 1, Hx Diabetes Mellitus Type 2 Renal/ Medical History: Denies: Hx Peritoneal Dialysis Past Surgical History: Reports: Hx Orthopedic Surgery, Other - Right eye surgery - Immunizations Hx Diphtheria, Pertussis, Tetanus Vaccination: Yes History of Influenza Vaccine for 11/2016 - 04/2017 Season: No <RENETTA GUERRERO - Last Filed: 02/17/17 12:41> Physical Exam - Respiratory Respiratory status: Respiratory distress Breath sounds: Decreased air movement, Wheezing <SETH PIEDRA - Last Filed: 02/17/17 14:04> - Vital signs Vitals: Temp Pulse Resp BP Pulse Ox 97.9 F 82 18 143/99 H 98 02/17/17 11:51 02/17/17 11:51 02/17/17 11:51 02/17/17 11:51 02/17/17 11:51 Course <RENETTA GUERRERO - Last Filed: 02/17/17 12:41> - Laboratory Result Diagrams: 02/17/17 12:40 02/17/17 12:40 <SETH PIEDRA - Last Filed: 02/17/17 14:04> - Re-evaluation Re-evalutation: 02/17/17 14:04 I personally performed the services described in the documentation, reviewed and edited the documentation which was dictated to the scribe in my presence, and it accurately records my words and actions. (SETH PIEDRA) - Vital Signs Vital signs: Temp Pulse Resp BP Pulse Ox 97.9 F 82 21 H 139/112 H 99 02/17/17 11:51 02/17/17 11:51 02/17/17 13:35 02/17/17 13:35 02/17/17 13:35 - Laboratory Laboratory results interpreted by me: 02/17/17 12:40 Chloride 111 H BUN 23 H Creatinine 1.79 H Est GFR ( Amer) 49 L Est GFR (Non-Af Amer) 40 L Glucose 149 H Total Protein 6.1 L
[2017-02-17 12:59] LABS: ABSOLUTE EOSINOPHILS # (AUTO) 0.2 10^3/uL (0.0-0.6); ABSOLUTE LYMPHOCYTES (AUTO) 1.7 10^3/uL (0.5-4.7); ABSOLUTE MONOCYTES (AUTO) 0.5 10^3/uL (0.1-1.4); ABSOLUTE NEUT (AUTO) 3.1 10^3/uL (1.7-8.2); BASOPHILS % (AUTO) 0.4 % (0-2); EOSINOPHILS % (AUTO) 3.9 % (0-6); HEMATOCRIT 45.2 % (37.9-51.0); HEMOGLOBIN 14.9 g/dL (13.5-17.0); LYMPHOCYTES % (AUTO) 31.2 % (13-45); MEAN CORPUSCULAR HEMOGLOBIN 30.2 pg (27.0-33.4); MEAN CORPUSCULAR VOLUME 92 fl (80-97); MONOCYTES % (AUTO) 8.5 % (3-13); PLATELET COUNT 177 10^3/uL (150-450); RED BLOOD COUNT 4.94 10^6/uL (4.35-5.55); RED CELL DISTRIBUTION WIDTH 13.9 % (11.5-14.0); TOTAL CELLS COUNTED % (AUTO) 100 %; WHITE BLOOD COUNT 5.5 10^3/uL (4.0-10.5)
[2017-02-17 13:01] LABS: VENOUS BLOOD BASE EXCESS -2.9 mmol/L; VENOUS BLOOD HCO3 21.7 mmol/L (20-32); VENOUS BLOOD PCO2 37.2 mmHg (35-63); VENOUS BLOOD PH 7.38 (7.30-7.42)
[2017-02-17 13:05] LABS: INTERNATIONAL RATION (INR) 0.97; PROTHROMBIN TIME 13.6 SEC (11.4-15.4)
[2017-02-17 13:35] LABS: ALANINE AMINOTRANSFERASE 39 U/L (21-72); ALBUMIN 3.5 g/dL (3.5-5.0); ALKALINE PHOSPHATASE 82 U/L (38-126); ANION GAP 8 (5-19); ASPARTATE AMINO TRANSFERASE 43 U/L (17-59); BILIRUBIN,DIRECT 0.4 mg/dL (0.0-0.4); BILIRUBIN,TOTAL 0.7 mg/dL (0.2-1.3); BLOOD UREA NITROGEN 23 mg/dL (7-20); CALCIUM 9.5 mg/dL (8.4-10.2); CARBON DIOXIDE 23 mmol/L (22-30); CHLORIDE 111 mmol/L (98-107); GLUCOSE 149 mg/dL (75-110); POTASSIUM 4.6 mmol/L (3.6-5.0); SODIUM 141.6 mmol/L (137-145); TOTAL PROTEIN 6.1 g/dL (6.3-8.2)
--- NOTE | 2017-02-17 13:44 | RADIOLOGY REPORT (SQ) ---
EXAM DESCRIPTION: CHEST SINGLE VIEW COMPLETED DATE/TIME: 02/17/2017 1:32 pm REASON FOR STUDY: sob COMPARISON: CT chest 11/24/2016, 02/14/2015 Chest films 12/15/2014, 11/21/2016, 11/26/2016, 02/02/2017 EXAM PARAMETERS: NUMBER OF VIEWS: One view. TECHNIQUE: Single frontal radiographic view of the chest acquired. RADIATION DOSE: NA LIMITATIONS: None. FINDINGS: LUNGS AND PLEURA: Minimal scarring or atelectasis in the right lateral and left lateral co stophrenic sulci. No fluffy alveolar infiltrates worrisome for edema or pneumonia. There is a 2.5 cm density in the right retrocardiac region which likely represents a tortuous pulmona ry vein, no mass is present in this area on recent chest CT 11/24/2016. No pleural effusion. No pneumothorax. MEDIASTINUM AND HILAR STRUCTURES: No masses. Contour normal. HEART AND VASCULAR STRUCTURES: Marked cardiomegaly, stable BONES: No acute findings. HARDWARE: None in the chest. OTHER: No other significant finding. IMPRESSION: Chronic scarring or atelectasis at the bases. Prominent right lower lobe pulmonary vein correlates with CT 11/24/2016 Stable cardiomegaly TECHNICAL DOCUMENTATION: JOB ID: [id number] [employer]- All Rights Reserved
[2017-02-17] MEDS ORDERED: ALBUTEROL SULFATE 0.083% NEB 2.5 MG/3 ML AMPUL NEB ONE (14:15)
[2017-02-17] MEDS ORDERED: HYDRALAZINE HCL INJ/PF 20 MG/1 ML SDV IV PRN (14:26)
[2017-02-17] MEDS ORDERED: ACETAMINOPHEN 325 MG TABLET PO PRN (14:28)
[2017-02-17] MEDS ORDERED: ONDANSETRON HCL INJ/PF 4 MG/2 ML SDV IV PRN (14:28)
[2017-02-17] MEDS ORDERED: MAG HYDROX/AL HYDROX/SIMETH SUSP 30 ML UDCUP PO PRN (14:28)
[2017-02-17] MEDS ORDERED: AMLODIPINE BESYLATE 10 MG TABLET PO ONE (14:32)
[2017-02-17] MEDS ORDERED: ENALAPRILAT DIHYDRATE INJ/PF 1.25 MG/1 ML SDV IV PRN (14:32)
[2017-02-17] MEDS ORDERED: NITROGLYCERIN 5 MG (0.2 MG/HR) PATCH.TD24 TD ONE (14:33)
[2017-02-17] MEDS ORDERED: CHLORPHENIRAMINE MALEATE 4 MG TABLET PO ONE ×2 (15:30→17:45)
[2017-02-17] MEDS: IPRATROPIUM/ALBUTEROL 0.5-2.5 MG/3 ML AMPUL NEB SCH (17:10)
--- NOTE | 2017-02-17 17:21 | PDOC H&P ---
History of Present Illness Admission Date/PCP: 02/17/17 14:36 LATASHA BRAXTON NP Patient complains of: Shortness of breath and cough History of Present Illness: AGUILAR MAHAN is a 51 year old male with a past medical history of stage III chronic kidney disease, hypertension and congestive heart failure. He presents after 12 hours of shortness of breath and a productive cough of clear sputum. He denies runny nose, sore throat, chest pain or uncontrolled GERD. He verifies his systolic blood pressure at home to be in the 150 range and some uncertainty as to his regular medications. In the emergency room he is short of breath with uncontrolled hypertension consistent with congestive heart failure exacerbation and referred to the hospitalist for admission. Patient is unaware of dietary restrictions of congestive heart failure. Past Medical History Cardiac Medical History: Reports: Congestive Heart Failure, Hypertension Pulmonary Medical History: Reports: Chronic Obstructive Pulmonary Disease (COPD) Endocrine Medical History: Denies: Diabetes Mellitus Type 1, Diabetes Mellitus Type 2 Past Surgical History Past Surgical History: Reports: Orthopedic Surgery, Other - Right eye surgery Social History Information Source: Patient Lives with: Spouse/Significant other Smoking Status: Never Smoker Frequency of Alcohol Use: Occasional Hx Recreational Drug Use: No Drugs: None Hx Prescription Drug Abuse: No - Advance Directive Resuscitation Status: Full Code Family History Family History: CAD, COPD, DM, Hypertension, Malignancy - Father with bladder cancer Parental Family History Reviewed: Yes Children Family History Reviewed: Yes Sibling(s) Family History Reviewed.: Yes Medication/Allergy Home Medications: Aspirin [Aspirin 81 mg Chewable Tablet] 81 mg PO DAILY 02/17/17 Carvedilol [Coreg 12.5 mg Tablet] 12.5 mg PO Q12 02/17/17 Clonidine HCl 0.1 mg PO Q12 02/17/17 Furosemide [Lasix 40 mg Tablet] 40 mg PO QAM 02/17/17 Allergies/Adverse Reactions: No Known Allergies Allergy (Verified 02/02/17 15:19) Review of Systems Constitutional: PRESENT: fatigue, weight gain Eyes: ABSENT: visual disturbances Ears: ABSENT: hearing changes Cardiovascular: PRESENT: dyspnea on exertion, orthropnea. ABSENT: chest pain, edema, palpitations Respiratory: PRESENT: cough, dyspnea, sputum. ABSENT: hemoptysis Gastrointestinal: ABSENT: abdominal pain, constipation, diarrhea, hematemesis, hematochezia, nausea, vomiting Genitourinary: ABSENT: dysuria, hematuria Musculoskeletal: ABSENT: joint swelling Integumentary: ABSENT: rash, wounds Neurological: ABSENT: abnormal gait, abnormal speech, confusion, dizziness, focal weakness, syncope Psychiatric: ABSENT: anxiety, depression, homidical ideation, suicidal ideation Endocrine: ABSENT: cold intolerance, heat intolerance, polydipsia, polyuria Hematologic/Lymphatic: ABSENT: easy bleeding, easy bruising Physical Exam Vital Signs: Temp Pulse Resp BP Pulse Ox 97.9 F 75 18 142/118 H 98 02/17/17 11:51 02/17/17 17:10 02/17/17 17:10 02/17/17 15:31 02/17/17 17:10 General appearance: PRESENT: no acute distress, cooperative Head exam: PRESENT: atraumatic, normocephalic Eye exam: PRESENT: conjunctiva pink, EOMI, PERRLA. ABSENT: scleral icterus Ear exam: PRESENT: normal external ear exam Mouth exam: PRESENT: moist, tongue midline Neck exam: ABSENT: carotid bruit, JVD, lymphadenopathy, thyromegaly Respiratory exam: PRESENT: crackles, prolonged expiratory phas, symmetrical, tachypnea Cardiovascular exam: PRESENT: gallop, RRR. ABSENT: diastolic murmur, rubs, systolic murmur Pulses: PRESENT: normal dorsalis pedis pul Vascular exam: PRESENT: normal capillary refill GI/Abdominal exam: PRESENT: normal bowel sounds, soft. ABSENT: distended, guarding, mass, organolmegaly, rebound, tenderness Rectal exam: PRESENT: deferred Extremities exam: PRESENT: full ROM. ABSENT: calf tenderness, clubbing, pedal edema Neurological exam: PRESENT: alert, awake, oriented to person, oriented to place , oriented to time, oriented to situation, CN II-XII grossly intact. ABSENT: motor sensory deficit Psychiatric exam: PRESENT: appropriate affect, normal mood. ABSENT: homicidal ideation, suicidal ideation Skin exam: PRESENT: dry, intact, warm. ABSENT: cyanosis, rash Results Impressions: Chest X-Ray 02/17/17 12:32 IMPRESSION: Chronic scarring or atelectasis at the bases. Prominent right lower lobe pulmonary vein correlates with CT 11/24/2016 Stable cardiomegaly Assessment & Plan - Diagnosis (1) Acute exacerbation of congestive heart failure Qualifiers: Congestive heart failure type: diastolic Qualified Code(s): I50.33 - Acute on chronic diastolic (congestive) heart failure Is this a current diagnosis for this admission?: Yes Plan: Telemetry observation, optimization of blood pressure regiment and education (2) COPD exacerbation Is this a current diagnosis for this admission?: Yes Plan: Albuterol and Atrovent, incentive spirometry as needed (3) Chronic kidney disease, stage III (moderate) Is this a current diagnosis for this admission?: Yes Plan: Avoid nephrotoxic meds and doses. Reevaluate chemistry - Time Time Spent: 30 to 50 Minutes
[2017-02-17] MEDS: DOCUSATE SODIUM 100 MG CAPSULE PO SCH (18:18)
[2017-02-17] MEDS: FLUTICASONE NASAL SPRAY 50 MCG/SPRY 120 SPRAY/16 GM NASL SCH (21:40)
[2017-02-17] MEDS: HEPARIN SOD (PORCINE) 5,000 UNIT/ML 1 ML SYRINGE SUBCUT SCH (21:41)
[2017-02-18] MEDS: IPRATROPIUM/ALBUTEROL 0.5-2.5 MG/3 ML AMPUL NEB SCH ×3 (00:50→16:16)
[2017-02-18 05:08] LABS: ABSOLUTE MONOCYTES (AUTO) 0.4 10^3/uL (0.1-1.4); ABSOLUTE NEUT (AUTO) 7.5 10^3/uL (1.7-8.2); HEMATOCRIT 41.3 % (37.9-51.0); HEMOGLOBIN 13.9 g/dL (13.5-17.0); MEAN CORPUSCULAR HEMOGLOBIN 30.5 pg (27.0-33.4); MEAN CORPUSCULAR HGB CONC 33.6 g/dL (32.0-36.0); MEAN CORPUSCULAR VOLUME 91 fl (80-97); PLATELET COUNT 170 10^3/uL (150-450); RED BLOOD COUNT 4.55 10^6/uL (4.35-5.55); RED CELL DISTRIBUTION WIDTH 13.6 % (11.5-14.0); TOTAL CELLS COUNTED % (AUTO) 100 %; WHITE BLOOD COUNT 8.9 10^3/uL (4.0-10.5)
[2017-02-18 05:29] LABS: ANION GAP 10 (5-19); BLOOD UREA NITROGEN 23 mg/dL (7-20); CALCIUM 9.5 mg/dL (8.4-10.2); CARBON DIOXIDE 20 mmol/L (22-30); CHLORIDE 109 mmol/L (98-107); CREATINE KINASE 96 U/L (55-170); GLUCOSE 161 mg/dL (75-110); POTASSIUM 4.8 mmol/L (3.6-5.0); SODIUM 138.6 mmol/L (137-145)
[2017-02-18] MEDS: HEPARIN SOD (PORCINE) 5,000 UNIT/ML 1 ML SYRINGE SUBCUT SCH ×3 (06:03→22:01)
[2017-02-18 06:36] LABS: APPEARANCE,URINE CLEAR; BILIRUBIN,URINE NEGATIVE (NEGATIVE); COLOR,URINE YELLOW; GLUCOSE, URINE NEGATIVE (NEGATIVE); KETONES,URINE NEGATIVE (NEGATIVE); LEUKOCYTE ESTERASE,URINE NEGATIVE (NEGATIVE); NITRITE,URINE NEGATIVE (NEGATIVE); PROTEIN,URINE NEGATIVE (NEGATIVE); URINE SPECIFIC GRAVITY 1.018; UROBILINOGEN,URINE NEGATIVE mg/dL (<2.0)
[2017-02-18] MEDS ORDERED: FUROSEMIDE 40 MG TABLET PO SCH (08:00)
--- NOTE | 2017-02-18 09:09 | PDOC PROGRESS REPORT ---
Subjective Progress Note for:: 02/18/17 Subjective:: Patient states he is feeling much better. Having a good bit of shortness of breath with exertion very small distance. Does not have a primary cardiology. Has seen a kidney doctor in the past but none on a regular basis. Patient was admitted with fluid overload, possible COPD exacerbation. Suspect his elevated troponins were secondary to his CHF exacerbation. Patient had a recent catheterization at by does not within the past year or so. Reason For Visit: HTN CHEST PAIN COPD CHF EXACERBATION Physical Exam Vital Signs: Temp Pulse Resp BP Pulse Ox 97.7 F 87 20 156/99 H 98 02/18/17 08:04 02/18/17 08:04 02/18/17 08:04 02/18/17 08:04 02/18/17 08:04 Intake & Output 02/17/17 02/18/17 02/19/17 06:59 06:59 06:59 Intake Total 574 Output Total 525 Balance 49 Weight 120 kg General appearance: PRESENT: no acute distress, obese, well-developed, well- nourished Head exam: PRESENT: atraumatic, normocephalic Eye exam: PRESENT: conjunctiva pink, EOMI, PERRLA. ABSENT: scleral icterus Ear exam: PRESENT: normal external ear exam Mouth exam: PRESENT: moist, tongue midline Neck exam: ABSENT: carotid bruit, JVD, lymphadenopathy, thyromegaly Respiratory exam: PRESENT: chest wall tenderness, crackles, rales. ABSENT: rhonchi, wheezes Cardiovascular exam: PRESENT: RRR. ABSENT: diastolic murmur, rubs, systolic murmur Pulses: PRESENT: normal dorsalis pedis pul Vascular exam: PRESENT: normal capillary refill GI/Abdominal exam: PRESENT: firm, normal bowel sounds, soft. ABSENT: distended , guarding, mass, organolmegaly, rebound, tenderness Rectal exam: PRESENT: deferred Extremities exam: PRESENT: full ROM. ABSENT: calf tenderness, clubbing, pedal edema Neurological exam: PRESENT: alert, awake, oriented to person, oriented to place , oriented to time, oriented to situation, CN II-XII grossly intact. ABSENT: motor sensory deficit Psychiatric exam: PRESENT: appropriate affect, normal mood. ABSENT: homicidal ideation, suicidal ideation Skin exam: PRESENT: dry, intact, warm. ABSENT: cyanosis, rash Results Laboratory Results: 02/18/17 04:40 02/18/17 04:40 02/17/17 02/18/17 02/18/17 20:30 04:40 04:40 WBC 8.9 RBC 4.55 Hgb 13.9 Hct 41.3 MCV 91 MCH 30.5 MCHC 33.6 RDW 13.6 Plt Count 170 Seg Neutrophils % 84.0 H Lymphocytes % 11.0 L Monocytes % 5.0 Eosinophils % 0.0 Basophils % 0.0 Absolute Neutrophils 7.5 Absolute Lymphocytes 1.0 Absolute Monocytes 0.4 Absolute Eosinophils 0.0 Absolute Basophils 0.0 Sodium 138.6 Potassium 4.8 Chloride 109 H Carbon Dioxide 20 L Anion Gap 10 BUN 23 H Creatinine 1.68 H Est GFR ( Amer) 52 L Est GFR (Non-Af Amer) 43 L Glucose 161 H Calcium 9.5 TSH 0.24 L Urine Color Urine Appearance Urine pH Ur Specific [place] Urine Protein Urine Glucose (UA) Urine Ketones Urine Blood Urine Nitrite Ur Leukocyte Esterase Urine WBC (Auto) Urine RBC (Auto) 02/18/17 05:52 WBC RBC Hgb Hct MCV MCH MCHC RDW Plt Count Seg Neutrophils % Lymphocytes % Monocytes % Eosinophils % Basophils % Absolute Neutrophils Absolute Lymphocytes Absolute Monocytes Absolute Eosinophils Absolute Basophils Sodium Potassium Chloride Carbon Dioxide Anion Gap BUN Creatinine Est GFR ( Amer) Est GFR (Non-Af Amer) Glucose Calcium TSH Urine Color YELLOW Urine Appearance CLEAR Urine pH 5.0 Ur Specific [place] 1.018 Urine Protein NEGATIVE Urine Glucose (UA) NEGATIVE Urine Ketones NEGATIVE Urine Blood NEGATIVE Urine Nitrite NEGATIVE Ur Leukocyte Esterase NEGATIVE Urine WBC (Auto) 2 Urine RBC (Auto) 0 02/17/17 02/17/17 02/17/17 20:30 20:30 20:30 Creatine Kinase 114 Troponin I 0.049 NT-Pro-B Natriuret Pep 2780 H 02/18/17 02/18/17 02/18/17 02:38 02:38 04:40 Creatine Kinase 95 96 Troponin I 0.039 NT-Pro-B Natriuret Pep Impressions: Chest X-Ray 02/17/17 12:32 IMPRESSION: Chronic scarring or atelectasis at the bases. Prominent right lower lobe pulmonary vein correlates with CT 11/24/2016 Stable cardiomegaly Assessment & Plan - Diagnosis (1) Acute exacerbation of congestive heart failure Qualifiers: Congestive heart failure type: diastolic Qualified Code(s): I50.33 - Acute on chronic diastolic (congestive) heart failure Is this a current diagnosis for this admission?: Yes Plan: Change Lasix to IV patient continues have good bit of rales. Start patient back on his home medications of Coreg and clonidine for his blood pressure. Consider fluid restrictions if needed. Will ask cardiology to evaluate and for ongoing monitoring. Obtain echocardiogram. Recheck BNP. Follow labs (2) Acute and chronic respiratory failure Qualifiers: Respiratory failure complication: hypoxia Qualified Code(s): J96.21 - Acute and chronic respiratory failure with hypoxia Is this a current diagnosis for this admission?: Yes Plan: Encourage ambulating slowly to avoid dizziness. Avoid any sudden movements. Continue diuresing for fluid volume overload. Continue nebulizers (3) Chronic kidney disease, stage III (moderate) Is this a current diagnosis for this admission?: Yes Plan: Monitor renal function carefully careful diuresing (5) Obesity (BMI 30.0-34.9) Is this a current diagnosis for this admission?: Yes Plan: Encourage slow steady weight loss lifestyle modifications including low-salt diet (6) SOB (shortness of breath) Is this a current diagnosis for this admission?: Yes Plan: Currently patient does not need to. Suspect shortness of breath improved with diuresis - Plan Summary Plan Summary: We will have cardiology to evaluate. Monitor echocardiogram and labs today. Suspect patient will need a couple more days of IV diuresing prior to discharging.
[2017-02-18] MEDS ORDERED: CARVEDILOL 12.5 MG TABLET PO SCH (10:00)
[2017-02-18] MEDS: ASPIRIN 81 MG TABLET, CHEWABLE PO SCH (10:40)
[2017-02-18] MEDS: CLONIDINE HCL 0.1 MG TABLET PO SCH ×2 (10:42→22:01)
[2017-02-18] MEDS: DOCUSATE SODIUM 100 MG CAPSULE PO SCH ×2 (10:42→17:21)
[2017-02-18] MEDS: FUROSEMIDE INJ/PF 40 MG/4 ML SDV IV SCH (10:43)
[2017-02-18] MEDS: FLUTICASONE NASAL SPRAY 50 MCG/SPRY 120 SPRAY/16 GM NASL SCH ×2 (10:43→22:02)
--- NOTE | 2017-02-18 12:16 | EKG REPORT ---
SEVERITY:- ABNORMAL ECG - SINUS RHYTHM LEFT ATRIAL ABNORMALITY ABNORMAL T, CONSIDER ISCHEMIA, LATERAL LEADS : Confirmed by: Melissa Weathers MD 18-Feb-2017 12:15:35
--- NOTE | 2017-02-18 12:28 | PDOC CONSULTATION ---
Consultation Consult Date: 02/18/17 Attending physician:: LISSETTE DURON Consult reason:: CHF History of Present Illness Admission Date/PCP: 02/17/17 14:36 LATASHA BRAXTON NP Patient complains of: Shortness of breath History of Present Illness: AGUILAR MAHAN is a 51 year old male with a past medical history of stage III chronic kidney disease, hypertension and congestive heart failure. He presents after 12 hours of shortness of breath and a productive cough of clear sputum. He denies runny nose, sore throat, chest pain or uncontrolled GERD. He verifies his systolic blood pressure at home to be in the 150 range and some uncertainty as to his regular medications. In the emergency room he is short of breath with uncontrolled hypertension consistent with congestive heart failure exacerbation and referred to the hospitalist for admission. Patient is unaware of dietary restrictions of congestive heart failure. This history was confirmed, reviewed and supplemented. Patient describes cardiac evaluation completed about 2 years ago at [facility]. He does remember having had a heart catheterization and was told to have normal coronaries at that time. We have requested these records. Past Medical History Cardiac Medical History: Reports: Congestive Heart Failure, Hypertension Denies: Myocardial Infarction Pulmonary Medical History: Reports: Asthma, Bronchitis, Chronic Obstructive Pulmonary Disease (COPD), Pneumonia Denies: Tuberculosis Neurological Medical History: Denies: Seizures Endocrine Medical History: Denies: Diabetes Mellitus Type 1, Diabetes Mellitus Type 2 Renal/ Medical History: Denies: End Stage Renal Disease GI Medical History: Denies: Cirrhosis, Gastroesophageal Reflux Disease Musculoskeltal Medical History: Denies: Arthritis Psychiatric Medical History: Denies: Bipolar Disorder, Depression Hematology: Denies: Anemia, Bleeding Tendencies Past Surgical History Past Surgical History: Reports: Cardiac Catheterization, Orthopedic Surgery, Other - Right eye surgery, heart catheterization Social History Information Source: Patient Lives with: Spouse/Significant other Smoking Status: Former Smoker Frequency of Alcohol Use: Occasional Hx Recreational Drug Use: No Drugs: None Hx Prescription Drug Abuse: No - Advance Directive Resuscitation Status: Full Code Surrogate healthcare decision maker:: Significant other Family History Family History: CAD, COPD, DM, Hypertension, Malignancy - Father with bladder cancer Parental Family History Reviewed: Yes Children Family History Reviewed: Yes Sibling(s) Family History Reviewed.: Yes Medication/Allergy Home Medications: Aspirin [Aspirin 81 mg Chewable Tablet] 81 mg PO DAILY 02/17/17 Carvedilol [Coreg 12.5 mg Tablet] 12.5 mg PO Q12 02/17/17 Clonidine HCl 0.1 mg PO Q12 02/17/17 Furosemide [Lasix 40 mg Tablet] 40 mg PO QAM 02/17/17 Allergies/Adverse Reactions: No Known Allergies Allergy (Verified 02/02/17 15:19) Review of Systems Review of Systems: Please see history of present illness and past medical history as wall. Constitutional: No fever or chills reported. Head : No recent chronic headaches, recent head injury. Eyes: No recent eye pain, diplopia, redness, discharge, acute visual changes. Ears: No recent chronic ear pain, acute hearing loss, ear discharge. Oral cavity: No recent ulcerations, bleeding, oral cavity discomfort. Neck: No recent acute neck pain reported. Hematologic: No recent easy bruising or bleeding or hematologic malignancy reported. Lymphatic: No recent lymphatic malignancy, chronic lymphadenopathy reported yet Cardiovascular system review: See history of present illness. No history of sustained palpitations, syncope, near syncope. Patient does have pedal edema, orthopnea and PND Respiratory system review: No recent chronic cough, hemoptysis, blood clots in the lungs reported. Shortness of breath on exertion Gastrointestinal system review: Negative for any recent acute or chronic abdominal pain, hematemesis, melena, recent change in bowel habits. Genitourinary system review: No recent acute or chronic hematuria, flank pain, UTI etc. reported. Skin system review: Negative for any recent abnormal bruising, no rash, no pruritus reported. Neurologic: No prior history of strokes, mini strokes, seizure disorder. Psychologic: No history of major psychosis or major depression reported. Musculoskeletal: Minor aches and pains reported. No acute joint swelling reported. Endocrine: No recent polyuria, polydipsia, recent heat or cold intolerance. Physical Exam Vital Signs: Temp Pulse Resp BP Pulse Ox 98.0 F 79 16 143/103 H 99 02/18/17 10:47 02/18/17 10:47 02/18/17 10:47 02/18/17 10:47 02/18/17 10:47 Intake & Output 02/17/17 02/18/17 02/19/17 06:59 06:59 06:59 Intake Total 574 Output Total 525 Balance 49 Weight 120 kg Exam: GENERAL: well-nourished and in no acute distress. Alert and oriented x3 HEAD: Atraumatic, normocephalic. 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 ENT: TMs normal, nares patent, oropharynx clear without exudates. Moist mucous membranes. No oral ulcerations or bleeding gums noted NECK: supple without lymphadenopathy. Trachea is central. No cervical or axillary lymphadenopathy noted. Carotids are 2+, JVD WNL LUNGS: Respiration seems nonlabored, no significant accessory muscle action noted. Breath sounds clear to auscultation bilaterally and equal noted. No wheezes rales or rhonchi noted. No significant dullness noted on percussion. CHEST: Palpation of the chest wall shows no significant chest wall tenderness. No other significant abnormalities noted. HEART: [place] [employer], No PSH, 1/6 [place] aortic area, 1/6 morgan systolic murmur mitral area, no rubs, no gallops. ABDOMEN: Soft, no significant tenderness appreciated, normoactive bowel sounds. No guarding, no rebound. No rigidity noted . No masses appreciated. EXTREMITIES: Pedal pulses are 1-2+, no calf tenderness noted. No clubbing or cyanosis.tr+ pedal edema noted NEUROLOGICAL: Focused neurological exam showed no significant neurologic deficit. Normal speech, no focal weakness appreciated. PSYCH: Normal mood, normal affect. Judgment and insight within normal limits. SKIN: No significant ecchymosis, rash, ulcerations or signs of pruritus noted. MUSCULOSKELETAL EXAM: No significant joint swelling noted. Results Laboratory Results: 02/18/17 04:40 02/18/17 04:40 02/17/17 02/18/17 02/18/17 20:30 04:40 04:40 WBC 8.9 RBC 4.55 Hgb 13.9 Hct 41.3 MCV 91 MCH 30.5 MCHC 33.6 RDW 13.6 Plt Count 170 Seg Neutrophils % 84.0 H Lymphocytes % 11.0 L Monocytes % 5.0 Eosinophils % 0.0 Basophils % 0.0 Absolute Neutrophils 7.5 Absolute Lymphocytes 1.0 Absolute Monocytes 0.4 Absolute Eosinophils 0.0 Absolute Basophils 0.0 Sodium 138.6 Potassium 4.8 Chloride 109 H Carbon Dioxide 20 L Anion Gap 10 BUN 23 H Creatinine 1.68 H Est GFR ( Amer) 52 L Est GFR (Non-Af Amer) 43 L Glucose 161 H Calcium 9.5 TSH 0.24 L Urine Color Urine Appearance Urine pH Ur Specific [place] Urine Protein Urine Glucose (UA) Urine Ketones Urine Blood Urine Nitrite Ur Leukocyte Esterase Urine WBC (Auto) Urine RBC (Auto) 02/18/17 05:52 WBC RBC Hgb Hct MCV MCH MCHC RDW Plt Count Seg Neutrophils % Lymphocytes % Monocytes % Eosinophils % Basophils % Absolute Neutrophils Absolute Lymphocytes Absolute Monocytes Absolute Eosinophils Absolute Basophils Sodium Potassium Chloride Carbon Dioxide Anion Gap BUN Creatinine Est GFR ( Amer) Est GFR (Non-Af Amer) Glucose Calcium TSH Urine Color YELLOW Urine Appearance CLEAR Urine pH 5.0 Ur Specific [place] 1.018 Urine Protein NEGATIVE Urine Glucose (UA) NEGATIVE Urine Ketones NEGATIVE Urine Blood NEGATIVE Urine Nitrite NEGATIVE Ur Leukocyte Esterase NEGATIVE Urine WBC (Auto) 2 Urine RBC (Auto) 0 02/17/17 02/17/17 02/17/17 20:30 20:30 20:30 Creatine Kinase 114 Troponin I 0.049 NT-Pro-B Natriuret Pep 2780 H 02/18/17 02/18/17 02/18/17 02:38 02:38 04:40 Creatine Kinase 95 96 Troponin I 0.039 NT-Pro-B Natriuret Pep 02/18/17 09:16 Creatine Kinase Troponin I NT-Pro-B Natriuret Pep 2400 H EKG Comments: Sinus rhythm with minor nonspecific T-wave changes Impressions: Chest X-Ray 02/17/17 12:32 IMPRESSION: Chronic scarring or atelectasis at the bases. Prominent right lower lobe pulmonary vein correlates with CT 11/24/2016 Stable cardiomegaly Assessment & Plan - Diagnosis (1) Acute exacerbation of congestive heart failure Qualifiers: Congestive heart failure type: combined Qualified Code(s): I50.43 - Acute on chronic combined systolic (congestive) and diastolic (congestive) heart failure Is this a current diagnosis for this admission?: Yes (2) Chronic kidney disease, stage III (moderate) Is this a current diagnosis for this admission?: Yes (3) Hypertension Qualifiers: Hypertension type: essential hypertension Qualified Code(s): I10 - Essential (primary) hypertension (4) COPD (chronic obstructive pulmonary disease) Qualifiers: COPD type: unspecified COPD Qualified Code(s): J44.9 - Chronic obstructive pulmonary disease, unspecified Is this a current diagnosis for this admission?: Yes - Notes Notes: Congestive heart failure: Patient has congestive heart failure secondary to systolic plus diastolic dysfunction, acute on chronic, most likely precipitated by noncompliance. Recommend diuretic therapy, optimization of medical therapy which would include BING inhibitors/ARB/entresto, carvedilol, diuretics may consider adding digoxin. Chronic kidney disease: Currently stable. Continue to monitor it. Hypertension: Blood pressure goal should be 135/85 or less. This was explained. COPD: Currently stable. Patient has been advised to avoid firsthand and secondhand smoking. - Time Time Spent: 30 to 50 Minutes - CODE STATUS was discussed, patient remains full code. Surrogate decision-maker unchanged. Multiple medical problems were addressed. More than 50% of the time spent coordinating care, discussing management plans with involved caregivers. Management plans discussed with involved personnels. Medical decision making was of moderate to high complexity , patient's has multiple comorbidities. Medications reviewed and adjusted accordingly: Yes
--- NOTE | 2017-02-18 17:26 | XCELERA REPORT ---
[address] [address] Transthoracic Echocardiogram Report Name: AGUILAR MAHAN Age: 51 yrs Gender: Male : 1965 Patient Status: Inpatient Patient Location: [address] [place] [address] Study Date: 02/18/2017 01:48 PM Height: 75 in Weight: 264 lb BSA: 2.5 m2 Procedure: A complete two-dimensional transthoracic echocardiogram was performed (2D, M-mode, spectral and color flow Doppler). The study was technically adequate with some images being suboptimal in quality. Reason For Study: eval chf Ordering Physician: YULIA HICKS Performed By: Megan Shukla Interpretation Summary The Ejection Fraction estimate is 40-45% Left ventricular systolic function is mildly reduced. There is moderate concentric left ventricular hypertrophy. The left ventricle is grossly normal size. Doppler measurements suggest pseudonormalized left ventricular relaxation, which is associated with grade II/IV or mild to moderate diastolic dysfunction There is mild global hypokinesis of the left ventricle. The right ventricular systolic function is normal. The left atrium is mildly dilated. The right atrium is normal in size There is a trace amount of mitral regurgitation There is no mitral valve stenosis. There is a mild to moderate amount of aortic regurgitation There is no aortic valve stenosis There is a trace or physiologic amount of tricuspid regurgitation Tricuspid regurgitation jet envelope not well defined to measure RV systolic pressure accurately. The aortic root is not well visualized but is probably normal size. The inferior vena cava appeared normal and decreased > 50% with respiration (RAP 5-10 mmHg) There is no pericardial effusion. MMode/2D Measurements & Calculations RVDd: 3.2 cm LVIDd: 6.3 cm FS: 18.8 % Ao root diam: 4.3 cm IVSd: 1.8 cm LVIDs: 5.1 cm EDV(Teich): 198.7 ml LVPWd: 1.8 cm ESV(Teich): 123.0 ml Ao root area: 14.5 cm2 EF(Teich): 38.1 % LA dimension: 4.4 cm Doppler Measurements & Calculations MV E max sang: MV P1/2t max sang: Ao V2 max: AI max sang: 47.0 cm/sec 47.3 cm/sec 131.1 cm/sec 428.3 cm/sec MV A max sang: MV P1/2t: 53.5 msec Ao max PG: AI max P.3 cm/sec 6.9 mmHg 73.4 mmHg MV E/A: 1.4 MVA(P1/2t): 4.1 cm2 AI dec slope: MV dec slope: 259.0 cm/sec2 188.1 cm/sec2 AI P1/2t: 667.1 msec LV V1 max PG: PA V2 max: 3.8 mmHg 104.1 cm/sec LV V1 max: PA max P.3 mmHg 97.9 cm/sec Left Ventricle The left ventricle is grossly normal size. There is moderate concentric left ventricular hypertrophy. Left ventricular systolic function is mildly reduced. The Ejection Fraction estimate is 40-45%. Doppler measurements suggest pseudonormalized left ventricular relaxation, which is associated with grade II/IV or mild to moderate diastolic dysfunction. There is mild global hypokinesis of the left ventricle. Right Ventricle The right ventricle is grossly normal size. There is normal right ventricular wall thickness. The right ventricular systolic function is normal. Atria The right atrium is normal in size. The left atrium is mildly dilated. Interarterial septum not well visualized and not well dopplered. Cannot comment on ASD/PFO presence. Mitral Valve The mitral valve is grossly normal. There is no mitral valve stenosis. There is a trace amount of mitral regurgitation. Aortic Valve The aortic valve is grossly normal. There is no aortic valve stenosis. There is a mild to moderate amount of aortic regurgitation. Tricuspid Valve The tricuspid valve is not well visualized, but is grossly normal. There is no tricuspid stenosis. There is a trace or physiologic amount of tricuspid regurgitation. Tricuspid regurgitation jet envelope not well defined to measure RV systolic pressure accurately. Pulmonic Valve The pulmonic valve is not well visualized. Great Vessels The aortic root is not well visualized but is probably normal size. The inferior vena cava appeared normal and decreased > 50% with respiration (RAP 5-10 mmHg). Effusions There is no pericardial effusion. : YULIA HICKS > Lai Marin
[2017-02-18] MEDS: CARVEDILOL 12.5 MG TABLET PO SCH (22:00)
[2017-02-18] MEDS ORDERED: BENZOCAINE/MENTHOL SORE THROAT LOZENGE BUCCAL PRN (22:18)
[2017-02-19] MEDS: IPRATROPIUM/ALBUTEROL 0.5-2.5 MG/3 ML AMPUL NEB SCH ×3 (00:05→16:00)
[2017-02-19] MEDS: HEPARIN SOD (PORCINE) 5,000 UNIT/ML 1 ML SYRINGE SUBCUT SCH ×3 (05:08→21:53)
[2017-02-19 06:12] LABS: ANION GAP 10 (5-19); BLOOD UREA NITROGEN 27 mg/dL (7-20); CALCIUM 9.9 mg/dL (8.4-10.2); CARBON DIOXIDE 26 mmol/L (22-30); CHLORIDE 106 mmol/L (98-107); GLUCOSE 87 mg/dL (75-110); POTASSIUM 4.5 mmol/L (3.6-5.0); SODIUM 141.7 mmol/L (137-145)
[2017-02-19] MEDS: CARVEDILOL 12.5 MG TABLET PO SCH ×2 (09:09→21:53)
[2017-02-19] MEDS: DOCUSATE SODIUM 100 MG CAPSULE PO SCH ×2 (09:09→17:21)
[2017-02-19] MEDS: CLONIDINE HCL 0.1 MG TABLET PO SCH ×2 (09:10→21:53)
[2017-02-19] MEDS: ASPIRIN 81 MG TABLET, CHEWABLE PO SCH (09:10)
[2017-02-19] MEDS: FUROSEMIDE INJ/PF 40 MG/4 ML SDV IV SCH (09:10)
[2017-02-19] MEDS: FLUTICASONE NASAL SPRAY 50 MCG/SPRY 120 SPRAY/16 GM NASL SCH ×2 (09:11→21:53)
--- NOTE | 2017-02-19 13:39 | PDOC PROGRESS REPORT ---
Subjective Progress Note for:: 02/19/17 Subjective:: Patient seems to be doing better with gradual improvement. Patient history was reviewed. He did complain of chest tightness on presentation. His cardiac enzymes were noted to be mildly abnormal but elevated troponin I. Pt is denying any chest arm or neck discomfort. Patient denying any PND, orthopnea. Patient denied any sustained palpitations, dizziness, syncope, near syncope. Patient denying any fever chills. Patient denying any other significant discomfort. Patient is maintaining sinus rhythm. Review of systems: Rest review of systems negative. Medications: Medications have been reviewed. Reason For Visit: HTN CHEST PAIN COPD CHF EXACERBATION Physical Exam Vital Signs: Temp Pulse Resp BP Pulse Ox 97.5 F 70 20 127/90 H 98 02/19/17 11:38 02/19/17 11:38 02/19/17 11:38 02/19/17 11:38 02/19/17 11:38 Intake & Output 02/18/17 02/19/17 02/20/17 06:59 06:59 06:59 Intake Total 574 1182 Output Total 525 3685 Balance 49 -2503 Weight 120 kg 120 kg Exam: GENERAL: well-nourished and in no acute distress. Alert and oriented x3 HEAD: Atraumatic, normocephalic. EYES: Blindness right eye, with some atrophy changes. Sclera anicteric, conjunctiva are normal. ENT: TMs normal, nares patent, oropharynx clear without exudates. Moist mucous membranes. No oral ulcerations or bleeding gums noted NECK: supple without lymphadenopathy. Trachea is central. No cervical or axillary lymphadenopathy noted. Carotids are 2+, JVD WNL LUNGS: Respiration seems nonlabored, no significant accessory muscle action noted. Breath sounds clear to auscultation bilaterally and equal noted. No wheezes rales or rhonchi noted. No significant dullness noted on percussion. CHEST: Palpation of the chest wall shows no significant chest wall tenderness. No other significant abnormalities noted. 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 ABDOMEN: Soft, no significant tenderness appreciated, normoactive bowel sounds. No guarding, no rebound. No rigidity noted . No masses appreciated. EXTREMITIES: Pedal pulses are 1-2+, no calf tenderness noted. No clubbing or cyanosis.trace to 1+ pedal edema noted NEUROLOGICAL: Focused neurological exam showed no significant neurologic deficit. Normal speech, no focal weakness appreciated. PSYCH: Normal mood, normal affect. Judgment and insight within normal limits. SKIN: No significant ecchymosis, rash, ulcerations or signs of pruritus noted. MUSCULOSKELETAL EXAM: No significant joint swelling noted. Results Laboratory Results: 02/18/17 04:40 02/19/17 05:10 02/19/17 05:10 Sodium 141.7 Potassium 4.5 Chloride 106 Carbon Dioxide 26 Anion Gap 10 BUN 27 H Creatinine 1.86 H Est GFR ( Amer) 47 L Est GFR (Non-Af Amer) 38 L Glucose 87 Calcium 9.9 02/17/17 02/17/17 02/17/17 20:30 20:30 20:30 Creatine Kinase 114 Troponin I 0.049 NT-Pro-B Natriuret Pep 2780 H 02/18/17 02/18/17 02/18/17 02:38 02:38 04:40 Creatine Kinase 95 96 Troponin I 0.039 NT-Pro-B Natriuret Pep 02/18/17 09:16 Creatine Kinase Troponin I NT-Pro-B Natriuret Pep 2400 H EKG Comments: Sinus rhythm, no acute ST-T wave changes noted. Impressions: Chest X-Ray 02/17/17 12:32 IMPRESSION: Chronic scarring or atelectasis at the bases. Prominent right lower lobe pulmonary vein correlates with CT 11/24/2016 Stable cardiomegaly Assessment & Plan - Diagnosis (1) Acute exacerbation of congestive heart failure Qualifiers: Congestive heart failure type: combined Qualified Code(s): I50.43 - Acute on chronic combined systolic (congestive) and diastolic (congestive) heart failure Is this a current diagnosis for this admission?: Yes (2) Chronic kidney disease, stage III (moderate) Is this a current diagnosis for this admission?: Yes (3) Hypertension Qualifiers: Hypertension type: essential hypertension Qualified Code(s): I10 - Essential (primary) hypertension (4) COPD (chronic obstructive pulmonary disease) Qualifiers: COPD type: unspecified COPD Qualified Code(s): J44.9 - Chronic obstructive pulmonary disease, unspecified Is this a current diagnosis for this admission?: Yes (5) Obesity (BMI 30.0-34.9) Is this a current diagnosis for this admission?: Yes (6) Tobacco dependency Is this a current diagnosis for this admission?: Yes - Notes Notes: Patient noted to have abnormal troponin I. His cardiac evaluations are reviewed. Feel that it will be worthwhile to perform a nuclear stress test prior to discharge. Hopefully it can be performed tomorrow if not it can be performed as an outpatient. Discussed that Blood pressure control would be paramount in helping his heart recover systolic function and for treatment of his CHF. Patient also advised aggressive weight loss. He will benefit from evaluation for sleep apnea. Of note patient has not had any recurrence of chest pain. His CHF has improved significantly and now he is able to lay flat. Nuclear stress test, procedure, risk benefit discussed. 2D echo results discussed in detail. Patient questions were answered. Patient's in the room, her questions answered. - Time Time with patient: Greater than 35 minutes - CODE STATUS was discussed, patient remains full code. Surrogate decision-maker unchanged. Multiple medical problems were addressed. More than 50% of the time spent coordinating care, discussing management plans with involved caregivers. Management plans discussed with involved personnels. Medical decision making was of moderate to high complexity, patient's has multiple comorbidities.
--- NOTE | 2017-02-19 16:13 | PDOC PROGRESS REPORT ---
Subjective Progress Note for:: 02/19/17 Subjective:: Patient states he is feeling much better. Having a good bit of shortness of breath with exertion very small distance. Does not have a primary cardiology. Has seen a kidney doctor in the past but none on a regular basis. Patient was admitted with fluid overload, possible COPD exacerbation. Suspect his elevated troponins were secondary to his CHF exacerbation. Patient had a recent catheterization within the past year or so. Reason For Visit: HTN CHEST PAIN COPD CHF EXACERBATION Physical Exam Vital Signs: Temp Pulse Resp BP Pulse Ox 97.5 F 70 20 127/90 H 98 02/19/17 11:38 02/19/17 11:38 02/19/17 11:38 02/19/17 11:38 02/19/17 11:38 Intake & Output 02/18/17 02/19/17 02/20/17 06:59 06:59 06:59 Intake Total 574 1182 Output Total 525 3685 Balance 49 -2503 Weight 120 kg 120 kg General appearance: PRESENT: mild distress, obese, well-developed, well- nourished Head exam: PRESENT: atraumatic, normocephalic Eye exam: PRESENT: conjunctiva pink, EOMI, PERRLA. ABSENT: scleral icterus Ear exam: PRESENT: normal external ear exam Mouth exam: PRESENT: moist, tongue midline Neck exam: ABSENT: carotid bruit, JVD, lymphadenopathy, thyromegaly Respiratory exam: PRESENT: clear to auscultation davie. ABSENT: rales, rhonchi, wheezes Cardiovascular exam: PRESENT: RRR. ABSENT: diastolic murmur, rubs, systolic murmur Pulses: PRESENT: normal dorsalis pedis pul Vascular exam: PRESENT: normal capillary refill GI/Abdominal exam: PRESENT: normal bowel sounds, soft. ABSENT: distended, guarding, mass, organolmegaly, rebound, tenderness Rectal exam: PRESENT: deferred Extremities exam: PRESENT: full ROM. ABSENT: calf tenderness, clubbing, pedal edema Neurological exam: PRESENT: alert, awake, oriented to person, oriented to place , oriented to time, oriented to situation, CN II-XII grossly intact. ABSENT: motor sensory deficit Psychiatric exam: PRESENT: appropriate affect, normal mood. ABSENT: homicidal ideation, suicidal ideation Skin exam: PRESENT: dry, intact, warm. ABSENT: cyanosis, rash Results Laboratory Results: 02/18/17 04:40 02/19/17 05:10 02/19/17 05:10 Sodium 141.7 Potassium 4.5 Chloride 106 Carbon Dioxide 26 Anion Gap 10 BUN 27 H Creatinine 1.86 H Est GFR ( Amer) 47 L Est GFR (Non-Af Amer) 38 L Glucose 87 Calcium 9.9 02/17/17 02/17/17 02/17/17 20:30 20:30 20:30 Creatine Kinase 114 Troponin I 0.049 NT-Pro-B Natriuret Pep 2780 H 02/18/17 02/18/17 02/18/17 02:38 02:38 04:40 Creatine Kinase 95 96 Troponin I 0.039 NT-Pro-B Natriuret Pep 02/18/17 09:16 Creatine Kinase Troponin I NT-Pro-B Natriuret Pep 2400 H Impressions: Chest X-Ray 02/17/17 12:32 IMPRESSION: Chronic scarring or atelectasis at the bases. Prominent right lower lobe pulmonary vein correlates with CT 11/24/2016 Stable cardiomegaly Assessment & Plan - Diagnosis (1) Acute exacerbation of congestive heart failure Qualifiers: Congestive heart failure type: combined Qualified Code(s): I50.43 - Acute on chronic combined systolic (congestive) and diastolic (congestive) heart failure Is this a current diagnosis for this admission?: Yes Plan: Change Lasix to IV patient continues have good bit of rales. Start patient back on his home medications of Coreg and clonidine for his blood pressure. Consider fluid restrictions if needed. Will ask cardiology to evaluate and for ongoing monitoring. Recheck BNP. Follow labs Echocardiogram showed EF of 4045% with some mildly reduced systolic function. Grade 2-4 moderate diastolic dysfunction patient able to ambulate a little further today than getting short of breath walking to the back to his hospital room (2) Acute and chronic respiratory failure Qualifiers: Respiratory failure complication: hypoxia Qualified Code(s): J96.21 - Acute and chronic respiratory failure with hypoxia Is this a current diagnosis for this admission?: Yes (3) Chronic kidney disease, stage III (moderate) Is this a current diagnosis for this admission?: Yes Plan: Monitor renal function carefully careful diuresing (4) Congestive cardiomyopathy Plan: Encourage slow steady weight loss. Encourage use of diuretics after discharge. Appreciate cardiology input (5) Obesity (BMI 30.0-34.9) Is this a current diagnosis for this admission?: Yes Plan: Encourage slow steady weight loss lifestyle modifications including low-salt diet (6) SOB (shortness of breath) Is this a current diagnosis for this admission?: Yes Plan: Currently patient does not need to. Suspect shortness of breath improved with diuresis - Plan Summary Plan Summary: No acute changes in assessment.
[2017-02-20] MEDS: IPRATROPIUM/ALBUTEROL 0.5-2.5 MG/3 ML AMPUL NEB SCH ×3 (00:29→16:11)
[2017-02-20] MEDS: HEPARIN SOD (PORCINE) 5,000 UNIT/ML 1 ML SYRINGE SUBCUT SCH ×3 (05:24→22:15)
[2017-02-20 06:21] LABS: BLOOD UREA NITROGEN 27 mg/dL (7-20); CALCIUM 9.3 mg/dL (8.4-10.2); GLUCOSE 102 mg/dL (75-110)
[2017-02-20 06:44] LABS: ANION GAP 7 (5-19); CARBON DIOXIDE 25 mmol/L (22-30); CHLORIDE 108 mmol/L (98-107); POTASSIUM 4.2 mmol/L (3.6-5.0)
[2017-02-20 06:45] LABS: SODIUM 140.2 mmol/L (137-145)
[2017-02-20] MEDS: CARVEDILOL 12.5 MG TABLET PO SCH ×2 (10:13→22:15)
[2017-02-20] MEDS: ASPIRIN 81 MG TABLET, CHEWABLE PO SCH (10:13)
[2017-02-20] MEDS: CLONIDINE HCL 0.1 MG TABLET PO SCH ×2 (10:13→22:15)
[2017-02-20] MEDS: DOCUSATE SODIUM 100 MG CAPSULE PO SCH ×2 (10:14→18:12)
[2017-02-20] MEDS: FUROSEMIDE INJ/PF 40 MG/4 ML SDV IV SCH (10:14)
[2017-02-20] MEDS: FLUTICASONE NASAL SPRAY 50 MCG/SPRY 120 SPRAY/16 GM NASL SCH ×2 (10:14→22:16)
--- NOTE | 2017-02-20 15:14 | PDOC PROGRESS REPORT ---
Subjective Progress Note for:: 02/20/17 Subjective:: Patient seems to be doing better with gradual improvement. Patient seems generally improved. There has been no recurrence of chest pains. Patient history was reviewed. He did complain of chest tightness on presentation. His cardiac enzymes were noted to be mildly abnormal but elevated troponin I. Pt is denying any chest arm or neck discomfort. Patient denying any PND, orthopnea. Patient denied any sustained palpitations, dizziness, syncope, near syncope. Patient denying any fever chills. Patient denying any other significant discomfort. Patient is maintaining sinus rhythm. Review of systems: Rest review of systems negative. Medications: Medications have been reviewed. Reason For Visit: ACUTE CHF EXACERBATION,HTN,COPD Physical Exam Vital Signs: Temp Pulse Resp BP Pulse Ox 97.3 F 73 16 120/78 94 02/20/17 12:01 02/20/17 12:01 02/20/17 08:16 02/20/17 12:01 02/20/17 12:01 Exam: GENERAL: well-nourished and in no acute distress. Alert and oriented x3 HEAD: Atraumatic, normocephalic. 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 ENT: TMs normal, nares patent, oropharynx clear without exudates. Moist mucous membranes. No oral ulcerations or bleeding gums noted NECK: supple without lymphadenopathy. Trachea is central. No cervical or axillary lymphadenopathy noted. Carotids are 2+, JVD WNL LUNGS: Respiration seems nonlabored, no significant accessory muscle action noted. Breath sounds clear to auscultation bilaterally and equal noted. No wheezes rales or rhonchi noted. No significant dullness noted on percussion. CHEST: Palpation of the chest wall shows no significant chest wall tenderness. No other significant abnormalities noted. 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 ABDOMEN: Soft, no significant tenderness appreciated, normoactive bowel sounds. No guarding, no rebound. No rigidity noted . No masses appreciated. EXTREMITIES: Pedal pulses are 1-2+, no calf tenderness noted. No clubbing or cyanosis.trace to 1+ pedal edema noted NEUROLOGICAL: Focused neurological exam showed no significant neurologic deficit. Normal speech, no focal weakness appreciated. PSYCH: Normal mood, normal affect. Judgment and insight within normal limits. SKIN: No significant ecchymosis, rash, ulcerations or signs of pruritus noted. MUSCULOSKELETAL EXAM: No significant joint swelling noted. Results Impressions: Chest X-Ray 02/17/17 12:32 IMPRESSION: Chronic scarring or atelectasis at the bases. Prominent right lower lobe pulmonary vein correlates with CT 11/24/2016 Stable cardiomegaly Assessment & Plan - Diagnosis (1) Chest discomfort Is this a current diagnosis for this admission?: Yes (2) Acute exacerbation of congestive heart failure Qualifiers: Congestive heart failure type: combined Qualified Code(s): I50.43 - Acute on chronic combined systolic (congestive) and diastolic (congestive) heart failure Is this a current diagnosis for this admission?: Yes (3) Chronic kidney disease, stage III (moderate) Is this a current diagnosis for this admission?: Yes (4) Hypertension Qualifiers: Hypertension type: essential hypertension Qualified Code(s): I10 - Essential (primary) hypertension (5) COPD (chronic obstructive pulmonary disease) Qualifiers: COPD type: unspecified COPD Qualified Code(s): J44.9 - Chronic obstructive pulmonary disease, unspecified Is this a current diagnosis for this admission?: Yes (6) Obesity (BMI 30.0-34.9) Is this a current diagnosis for this admission?: Yes (7) Tobacco dependency Is this a current diagnosis for this admission?: Yes (8) Troponin I above reference range Is this a current diagnosis for this admission?: Yes (9) Sleep disorder breathing Is this a current diagnosis for this admission?: Yes - Notes Notes: Chest pain: To be evaluated further with a nuclear stress test. This was supposed to be done tomorrow but due to New 's Day, no support available for completing a stress test today. Therefore stress test to be performed tomorrow. Patient does want to stay in the hospital to complete the stress test. Congestive heart failure: Patient has congestive heart failure secondary to systolic plus diastolic dysfunction, acute on chronic, most likely precipitated by noncompliance. Recommend diuretic therapy, optimization of medical therapy which would include BING inhibitors/ARB/entresto, carvedilol, diuretics may consider adding digoxin. Chronic kidney disease: Currently stable. Continue to monitor it. Hypertension: Blood pressure goal should be 135/85 or less. This was explained. COPD: Currently stable. Patient has been advised to avoid firsthand and secondhand smoking. Patient describes history of snoring, difficulty falling asleep and staying asleep. Patient now is noted to have depressed LVEF. Discussed that he will benefit from a sleep study. Will be happy to follow patient if he wishes to follow with me. Nuclear stress test to be completed tomorrow. Patient does want to have this done while he is in the hospital. 2D echo results were discussed. Management plans discussed. - Time Time with patient: Greater than 35 minutes - CODE STATUS was discussed, patient remains full code. Surrogate decision-maker unchanged. Multiple medical problems were addressed. More than 50% of the time spent coordinating care, discussing management plans with involved caregivers. Management plans discussed with involved personnels. Medical decision making was of moderate to high complexity, patient's has multiple comorbidities. Medications reviewed and adjusted accordingly: Yes
--- NOTE | 2017-02-20 15:19 | PDOC PROGRESS REPORT ---
Subjective Progress Note for:: 02/20/17 Subjective:: Patient states he is feeling much better. Having a good bit of shortness of breath with exertion very small distance. Does not have a primary cardiology. Has seen a kidney doctor in the past but none on a regular basis. Patient was admitted with fluid overload, possible COPD exacerbation. Suspect his elevated troponins were secondary to his CHF exacerbation. Patient had a recent catheterization within the past year or so. Reason For Visit: ACUTE CHF EXACERBATION,HTN,COPD Physical Exam Vital Signs: Temp Pulse Resp BP Pulse Ox 97.3 F 73 16 120/78 94 02/20/17 12:01 02/20/17 12:01 02/20/17 08:16 02/20/17 12:01 02/20/17 12:01 General appearance: PRESENT: no acute distress, well-developed, well-nourished Head exam: PRESENT: atraumatic, normocephalic Eye exam: PRESENT: conjunctiva pink, EOMI, PERRLA. ABSENT: scleral icterus Ear exam: PRESENT: normal external ear exam Mouth exam: PRESENT: moist, tongue midline Neck exam: ABSENT: carotid bruit, JVD, lymphadenopathy, thyromegaly Respiratory exam: PRESENT: clear to auscultation davie. ABSENT: rales, rhonchi, wheezes Cardiovascular exam: PRESENT: RRR. ABSENT: diastolic murmur, rubs, systolic murmur Pulses: PRESENT: normal dorsalis pedis pul Vascular exam: PRESENT: normal capillary refill GI/Abdominal exam: PRESENT: normal bowel sounds, soft. ABSENT: distended, guarding, mass, organolmegaly, rebound, tenderness Rectal exam: PRESENT: deferred Extremities exam: PRESENT: full ROM, +1 edema. ABSENT: calf tenderness, clubbing, pedal edema Musculoskeletal exam: PRESENT: ambulatory Neurological exam: PRESENT: alert, awake, oriented to person, oriented to place , oriented to time, oriented to situation, CN II-XII grossly intact. ABSENT: motor sensory deficit Psychiatric exam: PRESENT: appropriate affect, normal mood. ABSENT: homicidal ideation, suicidal ideation Skin exam: PRESENT: dry, intact, warm. ABSENT: cyanosis, rash Results Impressions: Chest X-Ray 02/17/17 12:32 IMPRESSION: Chronic scarring or atelectasis at the bases. Prominent right lower lobe pulmonary vein correlates with CT 11/24/2016 Stable cardiomegaly Assessment & Plan - Diagnosis (1) Acute exacerbation of congestive heart failure Qualifiers: Congestive heart failure type: combined Qualified Code(s): I50.43 - Acute on chronic combined systolic (congestive) and diastolic (congestive) heart failure Is this a current diagnosis for this admission?: Yes Plan: Change Lasix to IV patient continues have good bit of rales. Start patient back on his home medications of Coreg and clonidine for his blood pressure. Consider fluid restrictions if needed. Will ask cardiology to evaluate and for ongoing monitoring. Recheck BNP. Follow labs Echocardiogram showed EF of 4045% with some mildly reduced systolic function. Grade 2-4 moderate diastolic dysfunction patient able to ambulate a little further today than getting short of breath walking to the back to his hospital room Continue IV Lasix changed to inpatient status. Patient is going to have a stress test tomorrow per cardiology to evaluate his cardiomyopathy now that his shortness of breath has improved. (2) Acute and chronic respiratory failure Qualifiers: Respiratory failure complication: hypoxia Qualified Code(s): J96.21 - Acute and chronic respiratory failure with hypoxia Is this a current diagnosis for this admission?: Yes Plan: Encourage ambulating slowly to avoid dizziness. Avoid any sudden movements. Continue diuresing for fluid volume overload. Continue nebulizers (3) Chronic kidney disease, stage III (moderate) Is this a current diagnosis for this admission?: Yes Plan: Monitor renal function carefully careful diuresing (4) Congestive cardiomyopathy Plan: Encourage slow steady weight loss. Encourage use of diuretics after discharge. Appreciate cardiology input. Patient scheduled stress test in a.m. continue IV diuretic monitor sodium intake (5) Obesity (BMI 30.0-34.9) Is this a current diagnosis for this admission?: Yes Plan: Encourage slow steady weight loss lifestyle modifications including low-salt diet (6) SOB (shortness of breath) Is this a current diagnosis for this admission?: Yes Plan: Shortness of breath improved with diuresis but continues to have some with exertion but not as severe as it was upon admission
[2017-02-21] MEDS: IPRATROPIUM/ALBUTEROL 0.5-2.5 MG/3 ML AMPUL NEB SCH ×3 (00:51→16:05)
[2017-02-21] MEDS: HEPARIN SOD (PORCINE) 5,000 UNIT/ML 1 ML SYRINGE SUBCUT SCH ×2 (05:34→14:11)
[2017-02-21 06:32] LABS: ANION GAP 7 (5-19); BLOOD UREA NITROGEN 26 mg/dL (7-20); CALCIUM 9.3 mg/dL (8.4-10.2); CARBON DIOXIDE 25 mmol/L (22-30); CHLORIDE 108 mmol/L (98-107); GLUCOSE 89 mg/dL (75-110); POTASSIUM 4.5 mmol/L (3.6-5.0); SODIUM 140.3 mmol/L (137-145)
--- NOTE | 2017-02-21 09:31 | EKG REPORT ---
SEVERITY:- ABNORMAL ECG - SINUS RHYTHM LEFT ATRIAL ABNORMALITY ABNORMAL T, CONSIDER ISCHEMIA, LATERAL LEADS : Confirmed by: Lai Marin 21-Feb-2017 09:28:34
[2017-02-21] MEDS: FLUTICASONE NASAL SPRAY 50 MCG/SPRY 120 SPRAY/16 GM NASL SCH (11:50)
[2017-02-21] MEDS: CLONIDINE HCL 0.1 MG TABLET PO SCH (11:51)
[2017-02-21] MEDS: FUROSEMIDE INJ/PF 40 MG/4 ML SDV IV SCH (11:53)
[2017-02-21] MEDS: DOCUSATE SODIUM 100 MG CAPSULE PO SCH (11:53)
[2017-02-21] MEDS: CARVEDILOL 12.5 MG TABLET PO SCH (11:53)
[2017-02-21] MEDS: ASPIRIN 81 MG TABLET, CHEWABLE PO SCH (11:56)
[2017-02-21] MEDS ORDERED: AMINOPHYLLINE INJ/PF 250 MG/10 ML SDV IV ONE (13:21)
[2017-02-21] MEDS ORDERED: REGADENOSON INJ 0.4 MG/5 ML DISP.SYRIN IV ONE (13:21)
--- NOTE | 2017-02-21 13:41 | DRAGON STRESS TEST REPORT ---
INTRAVENOUS LEXISCAN CARDIOLITE STRESS TEST USING SINGLE PHOTON EMMISION COMPUTERIZED TOMOGRAPHIC. DATE OF PROCEDURE: February 21, 2017 INDICATION : Chest tightness, CHF CARDIAC RISK FACTORS: Hypertension RESTING EKG: Sinus rhythm, LVH with some secondary ST-T wave changes STRESS EKG: No significant changes noted with LexiScan bolus REASON FOR TERMINATION: Protocol. PROCEDURE REPORT: Baseline heart rate 72 beats per minute with blood pressure of 139/95. Patient had no significant complaints. Heart rate at 2 minutes post bolus 104 with a blood pressure of 161/112. 3 minutes post bolus heart rate 89 with blood pressure of 149/101. No significant EKG changes were noted. Patient had no significant complaints during the procedure or postprocedure. Patient injected with Aminophyllin 75 mg at 3 minutes or later after Lexiscan bolus. CONCLUSIONS: Normal EKG and hemodynamic response to IV LexiScan. NUCLEAR DATA: At rest the patient was given 11.83 millicuries of technetium 99 sestamibi injected intravenously. As per protocol rest gated SPECT images were obtained. Subsequently the patient was given intravenous LexiScan at a dose of 0.4 mg in 5 mL intravenously, followed by flush with normal saline. Subsequently the stress dose of 41.4 millicuries of technetium 99 sestamibi was injected intravenously. As per protocol stress gated images were obtained. NUCLEAR INTERPRETATION: Both raw and processed data were used for interpretation. Visual, qualitative, computer-generated quantitative data was used. There was good myocardial uptake of technetium compound. Motion artifact and soft tissue attenuations were noted. Increased visceral uptake was noted. No definitive areas of transient perfusion defect noted. Fixed defect noted in the basal inferior wall consistent with prior myocardial infarction. However there was increased diaphragmatic attenuation and so visceral uptake which cause some difficulty with interpretation of inferior wall perfusion.. EKG gated imaging showed LV EF at 25 %, rest and stress gated EF similar visually. T. I D. ratio was 0.99. Lung heart ratio noted to be within normal limits 0.27. No significant extracardiac and abnormal radiotracer activities were noted. RV free wall uptake was noted to be WNL. IMPRESSION: Also refer to comments under nuclear interpretation. Also test results needs to be interpreted in the context of pretest probability. 1. There is no definitive scintigraphic evidence of LexiScan induced myocardial ischemia. 2. Moderate fixed defect noted basal inferior wall consistent with prior myocardial infarction. Please refer to nuclear interpretation comments as well. 3. EKG gated imaging shows left ventricular ejection fraction of approximately 25 % with diffuse hypokinesia. 4. Clinical correlation requested as occasionally single vessel disease or balanced ischemia could be missed. In approximately 10% of the cases Lexiscan may not cause adequate vasodilatory stress. RECOMMENDATIONS: Aggressive risk factor modification, medical therapy. Clinical correlation with echocardiogram derived ejection fraction. Inability to exercise by itself can lead to increased cardiovascular event risks. Consider cardiology consultation and or follow-up if clinically indicated. I AM AVAILABLE FOR CARDIOLOGY CONSULTATION AND FOLLOWUP IF REQUESTED BY PMD Lai Marin M.D., ALONDRA Brick Setter Operator getterer, Board certified in cardiovascular diseases, Nuclear cardiology, Echocardiography Cardiac CT and cardiac MRI Ph. [phone] [facility] HOSPITALRory
--- NOTE | 2017-02-21 14:38 | PDOC DISCHARGE SUMMARY ---
General - Admit/Disc Date/PCP Admission Date/Primary Care Provider: 02/20/17 12:37 LATASHA BRAXTON NP Discharge Date: 02/21/17 - Discharge Diagnosis (1) Acute exacerbation of congestive heart failure Is this a current diagnosis for this admission?: Yes (2) Acute and chronic respiratory failure Is this a current diagnosis for this admission?: Yes (3) Chronic kidney disease, stage III (moderate) Is this a current diagnosis for this admission?: Yes (6) Obesity (BMI 30.0-34.9) Is this a current diagnosis for this admission?: Yes (7) SOB (shortness of breath) Is this a current diagnosis for this admission?: Yes - Additional Information Resuscitation Status: Full Code Discharge Diet: Cardiac, Other (Comments) - Reduced calorie Discharge Activity: Activity As Tolerated, Balance Activity w/Rest, Slowly Increase Activity, Weigh Daily Home Medications: Aspirin [Aspirin 81 mg Chewable Tablet] 81 mg PO DAILY 02/17/17 Carvedilol [Coreg 12.5 mg Tablet] 12.5 mg PO Q12 02/17/17 Clonidine HCl 0.1 mg PO Q12 02/17/17 Furosemide [Lasix 40 mg Tablet] 40 mg PO QAM 02/17/17 Acetaminophen [Tylenol 325 mg Tablet] 650 mg PO Q4HP PRN tablet 02/21/17 History of Present Illness History of Present Illness: Per H&P by Dr. Barrera: AGUILAR MAHAN is a 51 year old male with a past medical history of stage III chronic kidney disease, hypertension and congestive heart failure. He presents after 12 hours of shortness of breath and a productive cough of clear sputum. He denies runny nose, sore throat, chest pain or uncontrolled GERD. He verifies his systolic blood pressure home to be in the 150 range and some uncertainty as to his regular medications. In the emergency room he is short of breath with uncontrolled hypertension consistent with congestive heart failure exacerbation referred to the hospitalist for admission. Patient is unaware of dietary restrictions of congestive heart failure. Hospital Course Hospital Course: The patient was admitted with a CHF exacerbation and uncontrolled pressures. He was continued on his home medication Coreg and clonidine. He was provided IV Lasix for diuresis. His respiratory status rapidly improved with diuresis. He underwent an echocardiogram that demonstrated an ejection fraction of 40-45% with mildly reduced systolic dysfunction. A follow-up Cardiolite stress test was obtained which demonstrated normal EKG and hemodynamic changes while under stress. He was educated on the importance of gradual weight loss, tobacco cessation, and a low-sodium diet. On the day of discharge he is stable and maintaining oxygen saturations while ambulatory on room air. He also reports that he has been chest pain-free for greater than 24 hours. He is discharged to home with recommendations to follow up with his primary care provider within 1 week. The patient will also benefit from a follow-up overnight sleep study. Physical Exam Vital Signs: Temp Pulse Resp BP Pulse Ox 97.7 F 81 16 142/103 H 98 02/21/17 11:37 02/21/17 11:37 02/21/17 08:44 02/21/17 11:37 02/21/17 11:37 Intake & Output 02/20/17 02/21/17 02/22/17 06:59 06:59 06:59 Intake Total 120 Output Total 1600 Balance -1480 Weight 120.3 kg General appearance: PRESENT: no acute distress, well-developed, well-nourished, other - Her weight Head exam: PRESENT: atraumatic, normocephalic Eye exam: PRESENT: conjunctiva pink, EOMI, PERRLA. ABSENT: scleral icterus Ear exam: PRESENT: normal external ear exam Mouth exam: PRESENT: moist, tongue midline Neck exam: ABSENT: carotid bruit, JVD, lymphadenopathy, thyromegaly Respiratory exam: PRESENT: clear to auscultation davie, symmetrical, unlabored. ABSENT: rales, rhonchi, wheezes Cardiovascular exam: PRESENT: RRR, +S1, +S2. ABSENT: diastolic murmur, rubs, systolic murmur Pulses: PRESENT: normal dorsalis pedis pul Vascular exam: PRESENT: normal capillary refill GI/Abdominal exam: PRESENT: normal bowel sounds, soft. ABSENT: distended, guarding, mass, organolmegaly, rebound, tenderness Rectal exam: PRESENT: deferred Extremities exam: PRESENT: full ROM, +1 edema. ABSENT: calf tenderness, clubbing, pedal edema Neurological exam: PRESENT: alert, awake, oriented to person, oriented to place , oriented to time, oriented to situation, CN II-XII grossly intact. ABSENT: motor sensory deficit Psychiatric exam: PRESENT: appropriate affect, normal mood. ABSENT: homicidal ideation, suicidal ideation Skin exam: PRESENT: dry, intact, warm. ABSENT: cyanosis, rash Results Laboratory Results: 02/21/17 05:02 02/21/17 05:02 Sodium 140.3 Potassium 4.5 Chloride 108 H Carbon Dioxide 25 Anion Gap 7 BUN 26 H Creatinine 1.55 H Est GFR ( Amer) 57 L Est GFR (Non-Af Amer) 48 L Glucose 89 Calcium 9.3 Impressions: Chest X-Ray 02/17/17 12:32 IMPRESSION: Chronic scarring or atelectasis at the bases. Prominent right lower lobe pulmonary vein correlates with CT 11/24/2016 Stable cardiomegaly Qualifiers PATEINT BEING DISCHARGED WITH ANY OF THE FOLLOWING DIAGNOSIS?: Heart Failure HF Pt being discharged on ACEI for LVEF less than 40%?: No HF Pt being discharged on ARBS for LVEF less than 40%?: No HF Pt with Afib discharged with Warfarin?: No
[2017-02-21] MEDS ORDERED: ONDANSETRON HCL INJ/PF 4 MG/2 ML SDV IV PRN (15:30)
[2017-02-21] MEDS ORDERED: ACETAMINOPHEN 325 MG TABLET PO PRN (15:30)
[2017-02-21] MEDS ORDERED: MAG HYDROX/AL HYDROX/SIMETH SUSP 30 ML UDCUP PO PRN (15:30)
[2017-02-21 16:32] VITALS: BP 125/81
--- NOTE | 2017-02-21 20:18 | PDOC PROGRESS REPORT ---
Subjective Progress Note for:: 02/21/17 Subjective:: Patient seems to be doing better with gradual improvement. Patient seems generally improved. There has been no recurrence of chest pains. Patient history was reviewed. He did complain of chest tightness on presentation. His cardiac enzymes were noted to be mildly abnormal but elevated troponin I. Pt is denying any chest arm or neck discomfort. Patient denying any PND, orthopnea. Patient denied any sustained palpitations, dizziness, syncope, near syncope. Patient denying any fever chills. Patient denying any other significant discomfort. In the morning nuclear stress test results were discussed with the patient. Risk benefits were discussed and this was scheduled. Patient subsequently underwent nuclear stress test without any complications. Patient is maintaining sinus rhythm. Review of systems: Rest review of systems negative. Medications: Medications have been reviewed. Reason For Visit: ACUTE CHF EXACERBATION,HTN,COPD Physical Exam Vital Signs: Temp Pulse Resp BP Pulse Ox 97.7 F 81 16 130/92 H 97 02/21/17 16:22 02/21/17 16:22 02/21/17 16:22 02/21/17 16:22 02/21/17 16:22 Intake & Output 02/20/17 02/21/17 02/22/17 06:59 06:59 06:59 Intake Total 120 Output Total 1600 Balance -1480 Weight 120.3 kg Exam: GENERAL: well-nourished and in no acute distress. Alert and oriented x3 HEAD: Atraumatic, normocephalic. 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 Sclera anicteric , conjunctiva are normal. ENT: TMs normal, nares patent, oropharynx clear without exudates. Moist mucous membranes. No oral ulcerations or bleeding gums noted NECK: supple without lymphadenopathy. Trachea is central. No cervical or axillary lymphadenopathy noted. Carotids are 2+, JVD WNL LUNGS: Respiration seems nonlabored, no significant accessory muscle action noted. Breath sounds clear to auscultation bilaterally and equal noted. No wheezes rales or rhonchi noted. No significant dullness noted on percussion. CHEST: Palpation of the chest wall shows no significant chest wall tenderness. No other significant abnormalities noted. 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 ABDOMEN: Soft, no significant tenderness appreciated, normoactive bowel sounds. No guarding, no rebound. No rigidity noted . No masses appreciated. EXTREMITIES: Pedal pulses are 1-2+, no calf tenderness noted. No clubbing or cyanosis.trace pedal edema noted NEUROLOGICAL: Focused neurological exam showed no significant neurologic deficit. Normal speech, no focal weakness appreciated. PSYCH: Normal mood, normal affect. Judgment and insight within normal limits. SKIN: No significant ecchymosis, rash, ulcerations or signs of pruritus noted. MUSCULOSKELETAL EXAM: No significant joint swelling noted. Results Laboratory Results: 02/21/17 05:02 02/21/17 05:02 Sodium 140.3 Potassium 4.5 Chloride 108 H Carbon Dioxide 25 Anion Gap 7 BUN 26 H Creatinine 1.55 H Est GFR ( Amer) 57 L Est GFR (Non-Af Amer) 48 L Glucose 89 Calcium 9.3 Impressions: Chest X-Ray 02/17/17 12:32 IMPRESSION: Chronic scarring or atelectasis at the bases. Prominent right lower lobe pulmonary vein correlates with CT 11/24/2016 Stable cardiomegaly Assessment & Plan - Diagnosis (1) Chest discomfort Is this a current diagnosis for this admission?: Yes (2) Acute exacerbation of congestive heart failure Qualifiers: Congestive heart failure type: combined Qualified Code(s): I50.43 - Acute on chronic combined systolic (congestive) and diastolic (congestive) heart failure Is this a current diagnosis for this admission?: Yes (3) Chronic kidney disease, stage III (moderate) Is this a current diagnosis for this admission?: Yes (4) Hypertension Qualifiers: Hypertension type: essential hypertension Qualified Code(s): I10 - Essential (primary) hypertension (5) COPD (chronic obstructive pulmonary disease) Qualifiers: COPD type: unspecified COPD Qualified Code(s): J44.9 - Chronic obstructive pulmonary disease, unspecified Is this a current diagnosis for this admission?: Yes (6) Obesity (BMI 30.0-34.9) Is this a current diagnosis for this admission?: Yes (7) Tobacco dependency Is this a current diagnosis for this admission?: Yes (8) Troponin I above reference range Is this a current diagnosis for this admission?: Yes - Notes Notes: Chest pain: This was evaluated with a nuclear stress test. Nuclear stress test did confirm depressed LVEF and showed fixed defect in the inferior wall. Patient however denied any prior history of myocardial infarction. This could in fact be artifactual. Discussed that in view of depressed LVEF, further evaluation especially with cardiac cath may become indicated if he has any recurrence of chest pain. Patient has been advised close cardiology follow-up. Patient should also follow-up with primary care physician for good control of hypertension. Patient seems to have mainly hypertensive cardiomyopathy. Congestive heart failure: Patient has congestive heart failure secondary to systolic plus diastolic dysfunction, acute on chronic, most likely precipitated by noncompliance. Recommend diuretic therapy, optimization of medical therapy which would include BING inhibitors/ARB/entresto, carvedilol, diuretics may consider adding digoxin. CHF currently compensated. Chronic kidney disease: Currently stable. Continue to monitor it. Hypertension: Blood pressure goal should be 135/85 or less. This was explained. COPD: Currently stable. Patient has been advised to avoid firsthand and secondhand smoking. Tobacco dependency: Patient has been advised to quit smoking. Obesity: Patient has been advised and aggressive weight loss. Sleep disorder: Patient felt to have underlying sleep disorder and possible sleep apnea. Discussed significant improvement to be obtained in his cardiac function and prevention of future cardiovascular event risk with treatment of sleep apnea if noted to be present. Significant time spent discussing results of 2D echocardiogram, nuclear stress test, further care plans etc. - Time Time with patient: Greater than 35 minutes - CODE STATUS was discussed, patient remains full code. Surrogate decision-maker unchanged. Multiple medical problems were addressed. More than 50% of the time spent coordinating care, discussing management plans with involved caregivers. Management plans discussed with involved personnels. Medical decision making was of moderate to high complexity, patient's has multiple comorbidities. Medications reviewed and adjusted accordingly: Yes
== END 2017-02-21 16:43 | disposition home or self-care (01) | DRG 291 ==
LOC: ER 11:44 → EH 14:36 → 5 18:22 → OBSVTOIN 02-20 12:37
PROVIDERS: ADMIT Internal Medicine; ATTEND Internal Medicine
DX: I13.0 Hypertensive heart and chronic kidney disease with heart failure and stage 1 through stage 4 chronic kidney disease, or unspecified chronic kidney disease (principal); I50.43 Acute on chronic combined systolic (congestive) and diastolic (congestive) heart failure; J96.21 Acute and chronic respiratory failure with hypoxia; J44.1 Chronic obstructive pulmonary disease with (acute) exacerbation; N18.3 Chronic kidney disease, stage 3 (moderate); I42.0 Dilated cardiomyopathy; G47.30 Sleep apnea, unspecified; E66.9 Obesity, unspecified; Z79.82 Long term (current) use of aspirin; Z79.899 Other long term (current) drug therapy; Z91.11 Patient's noncompliance with dietary regimen; Z87.891 Personal history of nicotine dependence; Z68.33 Body mass index [BMI] 33.0-33.9, adult
CPT/HCPCS: 36415; 71010; 78452; 80048; 80053; 81001; 82550; 82803; 83605; 83880; 84443; 84484; 85025; 85610; 87086; 93005; 93010; 93017; 93321; 94640; 94667; 96374; 99285; A9500; J0280; J1644; J1940; J2785; J2930; J3490; J7620; Q9969

== ENCOUNTER 2017-08-28 20:20 | Emergency (ER) | payer OTHER ==
[2017-08-28] MEDS ORDERED: TETRACAINE HCL 0.5% OPH SOLN 2 ML OS ONE (21:18)
--- NOTE | 2017-08-28 21:24 | ER Document Report ---
ED Medical Screen (RME) - General Chief Complaint: Eye Problem Stated Complaint: EYE PROBLEM Time Seen by Provider: 08/28/17 21:18 TRAVEL OUTSIDE OF THE [place] IN LAST 30 DAYS: No - HPI Notes: 08/28/17 21:19 Patient is a 52-year-old male with a history of hypertension who presents to the ED complaining of blurriness and decrease in vision to the left eye that began today. Patient states that he originally saw a bunch of thoughts in his vision which has since resolved. Pt does report seeing a 'film' in his eye that would follow the direction of where he moved his eye. Pt states that currently it is just 'cloudy vision.' He does not have any sharp pain associated and has not had any flashes of light. No discharge. Patient did have an injury to his right eye in the past which has left him blind in that eye. Denies any other significant past medical history. Denies any headache, fever, acute head injury, neck pain, changes in speech/mentation/hearing, URI, sore throat, chest pain, palpitations, syncope, cough, shortness of breath, wheeze, dyspnea, abdominal pain, nausea/vomiting/diarrhea, urinary retention, dysuria, hematuria, loss of control of bowel or bladder, numbness/tingling, muscle paralysis/weakness, or rash. I have treated and performed a rapid initial assessment of this patient. A comprehensive ED assessment and evaluation of the patient, analysis of test results and completion of medical decision making process will be conducted by additional ED providers. PHYSICAL EXAMINATION: GENERAL: Well-appearing, well-nourished and in no acute distress. A&Ox4. Answers questions appropriately. Eye (lt): PERRLA. EOMI. Pt could not see my personal eye chart for visual acuity with that eye. At 3 feet he was able to tell me how many fingers I was holding up accurately. No obvious trauma. Minimal injection to the eye. Non- tender to palp. LUNGS: Breath sounds clear to auscultation bilaterally and equal. No wheezes rales or rhonchi. HEART: Regular rate and rhythm without murmurs, rubs, gallops. Extremities: No cyanosis, clubbing, or edema b/l. NEUROLOGICAL: Normal speech, normal gait. Cranial nerves grossly intact otherwise. Pronator drift neg. No focal weakness. PSYCH: Normal mood, normal affect. - Related Data Allergies/Adverse Reactions: No Known Allergies Allergy (Verified 02/02/17 15:19) Past Medical History - Social History Chew tobacco use (# tins/day): No Frequency of alcohol use: Occasional Drug Abuse: None - Past Medical History Cardiac Medical History: Reports: Hx Congestive Heart Failure, Hx Hypertension Denies: Hx Heart Attack Pulmonary Medical History: Reports: Hx Asthma, Hx Bronchitis, Hx COPD, Hx Pneumonia Denies: Hx Tuberculosis Neurological Medical History: Denies: Hx Seizures Endocrine Medical History: Denies: Hx Diabetes Mellitus Type 1, Hx Diabetes Mellitus Type 2 Renal/ Medical History: Denies: Hx Benign Prostatic Hyperplasia, Hx End Stage Renal Disease, Hx Kidney Stones, Hx Peritoneal Dialysis GI Medical History: Denies: Hx Cirrhosis, Hx Gastroesophageal Reflux Disease, Hx Ulcer Musculoskeltal Medical History: Denies Hx Arthritis, Denies Hx Multiple Sclerosis Psychiatric Medical History: Denies: Hx Bipolar Disorder, Hx Depression, Hx Schizophrenia Past Surgical History: Reports: Hx Cardiac Catheterization, Hx Orthopedic Surgery, Other - Right eye surgery, heart catheterization - Immunizations Hx Diphtheria, Pertussis, Tetanus Vaccination: Yes History of Influenza Vaccine for 11/2016 - 04/2017 Season: Yes Physical Exam - Vital signs Vitals: Temp Pulse Resp BP Pulse Ox 98.8 F 77 16 177/98 H 97 08/28/17 20:40 08/28/17 20:40 08/28/17 20:40 08/28/17 20:40 08/28/17 20:40 Course - Vital Signs Vital signs: Temp Pulse Resp BP Pulse Ox 98.8 F 77 16 177/98 H 97 08/28/17 20:40 08/28/17 20:40 08/28/17 20:40 08/28/17 20:40 08/28/17 20:40 Doctor's Discharge - Discharge Referrals: LATASHA BRAXTON NP [Primary Care Provider] - Follow up as needed
--- NOTE | 2017-08-28 23:34 | ER Document Report ---
ED General - General Chief Complaint: Eye Problem Stated Complaint: EYE PROBLEM Time Seen by Provider: 08/28/17 21:18 Notes: Patient is a 52-year-old male with a past medical history of an absent right eye from a softball injury approximately 1 year ago who presents with 12 hours of progressively worsening vision to his left eye. Patient states that when he woke up this morning his vision was normal. He states however that since that time he feels like a plastic layer has gone over his feel the vision on the left and has "millions of specks in it". He states that this plastic appearing layer does move around in his field of vision but has become progressively more pronounced throughout the day and is now to a point where he can barely see anything. He denies any history of similar symptoms in the past. He has not seen an blast furnace tender or break off worker regarding today's concerns. No injury to the eye. No use of eyedrops to the eye. He denies any pain to the eye. TRAVEL OUTSIDE OF THE [place] IN LAST 30 DAYS: No - Related Data Allergies/Adverse Reactions: No Known Allergies Allergy (Verified 02/02/17 15:19) Past Medical History - General Information source: Patient - Social History Smoking Status: Current Some Day Smoker Chew tobacco use (# tins/day): No Frequency of alcohol use: Occasional Drug Abuse: None Lives with: Alone Family History: CAD, COPD, DM, Hypertension, Malignancy - Father with bladder cancer Patient has suicidal ideation: No Patient has homicidal ideation: No - Past Medical History Cardiac Medical History: Reports: Hx Congestive Heart Failure, Hx Hypertension Denies: Hx Heart Attack Pulmonary Medical History: Reports: Hx Asthma, Hx Bronchitis, Hx COPD, Hx Pneumonia Denies: Hx Tuberculosis Neurological Medical History: Denies: Hx Seizures Endocrine Medical History: Denies: Hx Diabetes Mellitus Type 1, Hx Diabetes Mellitus Type 2 Renal/ Medical History: Denies: Hx Benign Prostatic Hyperplasia, Hx End Stage Renal Disease, Hx Kidney Stones, Hx Peritoneal Dialysis GI Medical History: Denies: Hx Cirrhosis, Hx Gastroesophageal Reflux Disease, Hx Ulcer Musculoskeltal Medical History: Denies Hx Arthritis, Denies Hx Multiple Sclerosis Psychiatric Medical History: Denies: Hx Bipolar Disorder, Hx Depression, Hx Schizophrenia Past Surgical History: Reports: Hx Cardiac Catheterization, Hx Orthopedic Surgery, Other - Right eye surgery, heart catheterization - Immunizations Hx Diphtheria, Pertussis, Tetanus Vaccination: Yes Review of Systems - Review of Systems Notes: Constitutional: Negative for fever. HENT: Negative for sore throat. Eyes: Positive for decreased vision to the left eye. Cardiovascular: Negative for chest pain. Respiratory: Negative for shortness of breath. Gastrointestinal: Negative for abdominal pain, vomiting or diarrhea. Genitourinary: Negative for dysuria. Musculoskeletal: Negative for back pain. Skin: Negative for rash. Neurological: Negative for headaches, weakness or numbness. 10 point ROS negative except as marked above and in HPI. Physical Exam - Vital signs Vitals: Temp Pulse Resp BP Pulse Ox 98.8 F 77 16 177/98 H 97 08/28/17 20:40 08/28/17 20:40 08/28/17 20:40 08/28/17 20:40 08/28/17 20:40 Interpretation: Hypertensive Notes: PHYSICAL EXAMINATION: GENERAL: Well-appearing, well-nourished and in no acute distress. HEAD: Atraumatic, normocephalic. EYES: Absent right eye. Left eye with scleral injection. Pupillary reflex intact going from 3 mm to 1 mm with light confrontation. Extraocular motions intact. No proptosis. Ocular pressure 17 on left, not checked on right. Bedside ultrasound shows hypo-echoic debries in the vitreous layer. No evidence of retinal detachment. ENT: nares patent, oropharynx clear without exudates. Moist mucous membranes. NECK: Normal range of motion, supple without lymphadenopathy LUNGS: Breath sounds clear to auscultation bilaterally and equal. No wheezes rales or rhonchi. HEART: Regular rate and rhythm without murmurs ABDOMEN: Soft, nontender, normoactive bowel sounds. No guarding, no rebound. No masses appreciated. EXTREMITIES: Normal range of motion, no pitting or edema. No cyanosis. NEUROLOGICAL: No focal neurological deficits. Moves all extremities spontaneously and on command. PSYCH: Very pleasant on contact. SKIN: Warm, Dry, normal turgor, no rashes or lesions noted. - HEENT Visual acuity- Right eye: 0 Visual acuity- Left eye: 20/200 Corrective lenses worn: No Course - Re-evaluation Re-evalutation: 08/28/17 23:28 Patient presents with almost complete loss of vision to the left eye, does not have a right at baseline. The patient normally sees well out of his left eye per his report. His visual acuity is effectively light only at this point. Pressure is 17. Extraocular motions intact. Pupillary response intact. Bedside ultrasound shows what appears to be a vitreous hemorrhage. I have contacted on-call ophthalmology and awaiting callback 08/29/17 01:31 I have received a call back from Dr. Ami Dela Cruz who called me in lieu of Dr. Tovar who unfortunately did not answer his phone after 3 call attempts. She agrees with my assessment that this is likely a vitreous hemorrhage. She has requested that the patient be seen in the office first thing in the morning. I have relayed this to the patient who is agreeable with this plan. At this time will discharge with return precautions and follow-up recommendations. Verbal discharge instructions given a the bedside and opportunity for questions given. Medication warnings reviewed. Patient is in agreement with this plan and has verbalized understanding of return precautions and the need for ophthalmology follow-up tomorrow as scheduled - Vital Signs Vital signs: Temp Pulse Resp BP Pulse Ox 98.8 F 99 16 130/88 H 100 08/28/17 20:40 08/29/17 01:49 08/29/17 01:49 08/29/17 01:49 08/29/17 01:49 Discharge - Discharge Clinical Impression: Vitreous hemorrhage of left eye Condition: Good Disposition: HOME, SELF-CARE Additional Instructions: Please keep your head at 45 and avoid laying flat. You need to see the blast furnace tender first thing tomorrow morning. Please call the office number included in this paperwork at 8 AM and and inform them that Dr. Dela Cruz has said that your to be seen today. Return for any additional concerns you may have. Referrals: LATASHA BRAXTON NP [Primary Care Provider] - Follow up as needed AMI RANDALL MD [ACTIVE STAFF] - Follow up tomorrow
[2017-08-29 02:00] VITALS: BP 130/88
== END 2017-08-29 02:00 | disposition home or self-care (01) ==
LOC: ER 20:20
DX: H43.12 Vitreous hemorrhage, left eye (principal); H57.8 Other specified disorders of eye and adnexa; H54.7 Unspecified visual loss; F17.200 Nicotine dependence, unspecified, uncomplicated; I10 Essential (primary) hypertension; J45.909 Unspecified asthma, uncomplicated
CPT/HCPCS: 99283

== ENCOUNTER 2018-01-01 07:40 | Emergency (ER) | payer OTHER ==
[2018-01-01 08:06] VITALS: BP 145/100
--- NOTE | 2018-01-01 09:04 | RADIOLOGY REPORT (SQ) ---
EXAM DESCRIPTION: CHEST SINGLE VIEW COMPLETED DATE/TIME: 01/01/2018 8:45 am REASON FOR STUDY: chest pain COMPARISON: 02/02/2017 EXAM PARAMETERS: NUMBER OF VIEWS: One view. TECHNIQUE: Single frontal radiographic view of the chest acquired. RADIATION DOSE: NA LIMITATIONS: None. FINDINGS: LUNGS AND PLEURA: Stable minimal bibasilar scarring or atelectasis. No acute pulmonary c onsolidation. No pneumothorax or pleural effusion. MEDIASTINUM AND HILAR STRUCTURES: No masses. Contour normal. HEART AND VASCULAR STRUCTURES: Stable cardiomegaly. No evidence for failure. BONES: No acute findings. HARDWARE: None in the chest. OTHER: No other significant finding. IMPRESSION: 1. No significant interval changes since the prior examination dated 02/02/2017. Stabl e cardiomegaly. No acute findings. TECHNICAL DOCUMENTATION: JOB ID: [id number] [employer]- All Rights Reserved Reading location - IP/workstation name: [email or web address]
[2018-01-01] MEDS ORDERED: IPRATROPIUM/ALBUTEROL 0.5-2.5 MG/3 ML AMPUL NEB ONE (09:51)
[2018-01-01] MEDS ORDERED: MAGNESIUM SULFATE/D5W 1 GM/100 ML RTUPB IV ONE (09:51)
[2018-01-01 10:19] LABS: ANION GAP 8 (5-19); BLOOD UREA NITROGEN 23 mg/dL (7-20); CALCIUM 9.3 mg/dL (8.4-10.2); CARBON DIOXIDE 27 mmol/L (22-30); CHLORIDE 107 mmol/L (98-107); GLUCOSE 104 mg/dL (75-110); POTASSIUM 4.5 mmol/L (3.6-5.0); SODIUM 142.2 mmol/L (137-145)
--- NOTE | 2018-01-01 10:33 | EKG REPORT ---
SEVERITY:- ABNORMAL ECG - SINUS RHYTHM LEFT ATRIAL ABNORMALITY NONSPECIFIC T ABNORMALITIES, LATERAL LEADS BORDERLINE PROLONGED QT INTERVAL : Confirmed by: Lai Marin 01-Jan-2018 10:31:53
[2018-01-01] MEDS ORDERED: ALBUTEROL SULFATE HFA (90 MCG/PUFF) 8 GM MDI (1 MDI/ER DISP) IH ONE ×2 (11:26→11:28)
--- NOTE | 2018-01-01 11:30 | ER Document Report ---
ED General - General Chief Complaint: Shortness Of Breath Stated Complaint: Shortness of breath Time Seen by Provider: 01/01/18 08:41 TRAVEL OUTSIDE OF THE [place] IN LAST 30 DAYS: No - HPI Patient complains to provider of: Shortness of breath Notes: Patient coming in for evaluation of shortness of breath. Patient states ongoing for the last few days. Patient states decreased exercise intolerance. Patient does not support a past medical history of CHF and COPD. Patient denies any smoking at this time. Patient is compliant with his medications. Patient states he is waking up in the middle night short of breath. Patient denies a history of sleep apnea. Patient denies any fever chills nausea vomiting diarrhea. Patient denies any chest pain states that his abdomen hurts whenever he coughs pointing to the bilateral flank regions. - Related Data Allergies/Adverse Reactions: No Known Allergies Allergy (Verified 01/01/18 10:25) Past Medical History - Social History Smoking Status: Former Smoker Chew tobacco use (# tins/day): No Frequency of alcohol use: Occasional Drug Abuse: None Family History: CAD, COPD, DM, Hypertension, Malignancy - Father with bladder cancer Patient has suicidal ideation: No Patient has homicidal ideation: No - Past Medical History Cardiac Medical History: Reports: Hx Congestive Heart Failure, Hx Hypertension Denies: Hx Heart Attack Pulmonary Medical History: Reports: Hx Asthma, Hx Bronchitis, Hx COPD, Hx Pneumonia Denies: Hx Tuberculosis Neurological Medical History: Denies: Hx Seizures Endocrine Medical History: Denies: Hx Diabetes Mellitus Type 1, Hx Diabetes Mellitus Type 2 Renal/ Medical History: Denies: Hx Benign Prostatic Hyperplasia, Hx End Stage Renal Disease, Hx Kidney Stones, Hx Peritoneal Dialysis GI Medical History: Denies: Hx Cirrhosis, Hx Gastroesophageal Reflux Disease, Hx Ulcer Musculoskeletal Medical History: Denies Hx Arthritis, Denies Hx Multiple Sclerosis Psychiatric Medical History: Denies: Hx Bipolar Disorder, Hx Depression, Hx Schizophrenia Past Surgical History: Reports: Hx Cardiac Catheterization, Hx Orthopedic Surgery, Other - Right eye surgery, heart catheterization - Immunizations Hx Diphtheria, Pertussis, Tetanus Vaccination: Yes Review of Systems - Review of Systems Constitutional: No symptoms reported EENT: No symptoms reported Cardiovascular: Dyspnea Respiratory: No symptoms reported Gastrointestinal: No symptoms reported Genitourinary: No symptoms reported Male Genitourinary: No symptoms reported Musculoskeletal: No symptoms reported Skin: No symptoms reported Hematologic/Lymphatic: No symptoms reported Neurological/Psychological: No symptoms reported -: Yes All other systems reviewed and negative Physical Exam - Vital signs Vitals: Temp Pulse Resp BP Pulse Ox 97.4 F 88 19 145/100 H 95 01/01/18 08:02 01/01/18 08:02 01/01/18 08:02 01/01/18 08:02 01/01/18 08:02 Interpretation: Normal - General General appearance: Appears well, Alert - HEENT Head: Normocephalic, Atraumatic Eyes: Normal Pupils: PERRL - Respiratory Respiratory status: No respiratory distress Chest status: Nontender Breath sounds: Normal Chest palpation: Normal - Cardiovascular Rhythm: Regular Heart sounds: Normal auscultation Murmur: No - Abdominal Inspection: Normal Distension: No distension Bowel sounds: Normal Tenderness: Nontender Organomegaly: No organomegaly - Back Back: Normal, Nontender - Extremities General upper extremity: Normal inspection, Nontender, Normal color, Normal ROM , Normal temperature General lower extremity: Normal inspection, Nontender, Normal color, Normal ROM , Normal temperature, Normal weight bearing. No: Alex's sign - Neurological Neuro grossly intact: Yes Cognition: Normal Orientation: AAOx4 [place] Coma Scale Eye Opening: Spontaneous [place] Coma Scale Verbal: Oriented [place] Coma Scale Motor: Obeys Commands Ras Coma Scale Total: 15 Speech: Normal Motor strength normal: LUE, RUE, LLE, RLE Sensory: Normal - Psychological Associated symptoms: Normal affect, Normal mood - Skin Skin Temperature: Warm Skin Moisture: Dry Skin Color: Normal Course - Re-evaluation Re-evalutation: 01/01/18 15:29 Chest x-ray did not reveal any critical pathology no signs of fluid overload. Physical examination also did not show overt signs of CHF. No JVD no hepatojugular reflux. Patient able to ambulate from the room to the bathroom without any difficulty. Patient was given a breathing treatment magnesium here for possible underlying COPD exacerbation. Patient lungs clear initially remain clear patient states slight improvement. Recommend patient follow-up primary care physician. Patient was encouraged to follow-up for possible sleep apnea testing. Patient will be discharged home - Vital Signs Vital signs: Temp Pulse Resp BP Pulse Ox 97.6 F 88 19 145/100 H 95 01/01/18 11:46 01/01/18 08:02 01/01/18 08:02 01/01/18 08:02 01/01/18 08:02 - Laboratory Result Diagrams: 01/01/18 08:40 Laboratory results interpreted by me: 01/01/18 08:40 BUN 23 H Creatinine 1.53 H Est GFR ( Amer) 58 L Est GFR (Non-Af Amer) 48 L Discharge - Discharge Clinical Impression: SOB (shortness of breath) Condition: Good Disposition: HOME, SELF-CARE Instructions: Dyspnea, Nonspecific ([facility]) Additional Instructions: Your chest x-ray today EKG laboratory studies not show any acute findings at this time. I highly recommend following up with her primary care physician for further evaluation of your symptoms. Use of the inhaler as needed for any shortness of breath. Referrals: LATASHA BRAXTON NP [Primary Care Provider] - Follow up as needed
== END 2018-01-01 12:11 | disposition home or self-care (01) ==
LOC: ER 07:40
DX: R06.02 Shortness of breath (principal); R05 Cough; Z87.891 Personal history of nicotine dependence; I10 Essential (primary) hypertension; J44.9 Chronic obstructive pulmonary disease, unspecified
CPT/HCPCS: 93005; 94640; 99285; 96365; 96366; 36415; 80048; 71045; 93010; J3475; J3490; J7620

== ENCOUNTER 2019-09-14 15:38 | Inpatient (IN) | payer MEDICAID ==
[2019-09-14] MEDS ORDERED: ASPIRIN 81 MG TABLET, CHEWABLE PO ONE (16:02)
--- NOTE | 2019-09-14 16:06 | ER Document Report ---
ED Medical Screen (RME) - General Chief Complaint: Chest Pain > 30 Stated Complaint: CHEST PAIN Time Seen by Provider: 09/14/19 16:02 Primary Care Provider: LATASHA BRAXTON NP [Primary Care Provider] - Follow up as needed Mode of Arrival: Carried Information source: Parent Notes: 54-year-old male presented to ED for chest pain shortness of breath and syncopal episodes. He states that every time he would cough his body would go "go crazy "and that he did feel like he was going to pass out. His blood pressure was 65/35 in the waiting room after he coughed. He was transferred to room [address] Shirley is now seeing him. I have greeted and performed a rapid initial assessment of this patient. A comprehensive ED assessment and evaluation of the patient, analysis of test results and completion of medical decision making process will be conducted by an additional ED providers. TRAVEL OUTSIDE OF THE [place] IN LAST 30 DAYS: No - Related Data Allergies/Adverse Reactions: No Known Allergies Allergy (Verified 01/01/18 10:25) Past Medical History - Past Medical History Cardiac Medical History: Reports: Hx Congestive Heart Failure, Hx Hypertension Denies: Hx Heart Attack Pulmonary Medical History: Reports: Hx Asthma, Hx Bronchitis, Hx COPD, Hx Pneumonia Denies: Hx Tuberculosis Neurological Medical History: Denies: Hx Seizures, Hx Parkinson's Disease Endocrine Medical History: Denies: Hx Diabetes Mellitus Type 1, Hx Diabetes Mellitus Type 2 Renal/ Medical History: Denies: Hx Benign Prostatic Hyperplasia, Hx End Stage Renal Disease, Hx Kidney Stones, Hx Peritoneal Dialysis GI Medical History: Denies: Hx Cirrhosis, Hx Gastroesophageal Reflux Disease, Hx Ulcer Musculoskeltal Medical History: Denies Hx Arthritis, Denies Hx Multiple Sclerosis Psychiatric Medical History: Denies: Hx Bipolar Disorder, Hx Depression, Hx Schizophrenia Past Surgical History: Reports: Hx Cardiac Catheterization, Hx Orthopedic Surgery, Other - Right eye surgery, heart catheterization - Immunizations Hx Diphtheria, Pertussis, Tetanus Vaccination: Yes Doctor's Discharge - Discharge Referrals: LATASHA BRAXTON NP [Primary Care Provider] - Follow up as needed
--- NOTE | 2019-09-14 16:17 | ER Document Report ---
ED General - General Chief Complaint: Chest Pain > 30 Stated Complaint: CHEST PAIN Time Seen by Provider: 09/14/19 16:02 Primary Care Provider: LATASHA BRAXTON NP [Primary Care Provider] - Follow up as needed Mode of Arrival: Carried TRAVEL OUTSIDE OF THE [place] 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 He was slightly nauseated last night but did not vomit. He went back out in the heat to work today and says symptoms have been progressively worse this afternoon. He is presently describing a dull central chest pain 7/10 intensity radiating through to the back. There is no radiation of the jaw or arm. Along with this he is felt very weak as though he might faint although he is not actually passed out. He has been dizzy. He denies shortness of breath. He has been sweating heavily. Patient reports a past history of hypertension and congestive heart failure. He regularly takes lisinopril and carvedilol. He says he is never had a myocardial infarction. He denies any history of thromboembolic disease. Family history is negative for CAD. Patient denies history of diabetes mellitus. He is a cigarette smoker. Cholesterol status is undetermined. HEART Score: HISTORY 2 ECG 1 AGE 1 RISK FACTORS 1 TROPONIN >3x=2 TOTAL: 5 If HEART score is = 3 AND both tronponin measurments are normal, the 30 day risk of a major adverse cardiac event (all-cause mortality, myocardia infarction or need for coronary revscularization) is < 1% (Sensitivity 100%, NPV 100%). - Related Data Allergies/Adverse Reactions: No Known Allergies Allergy (Verified 09/14/19 16:53) Home Medications: lisinopril, carvedilol, furosemide Past Medical History - General Information source: Parent - Social History Smoking Status: Current Every Day Smoker Frequency of alcohol use: Occasional Drug Abuse: None Lives with: Family Family History: COPD, DM, Hypertension, Malignancy - Father with bladder cancer. denies: CAD - Past Medical History Cardiac Medical History: Reports: Hx Congestive Heart Failure, Hx Hypertension Denies: Hx Heart Attack Pulmonary Medical History: Reports: Hx Asthma, Hx Bronchitis, Hx COPD, Hx Pneumo nataly Denies: Hx Tuberculosis Neurological Medical History: Denies: Hx Seizures, Hx Parkinson's Disease Endocrine Medical History: Denies: Hx Diabetes Mellitus Type 1, Hx Diabetes Mellitus Type 2 Renal/ Medical History: Denies: Hx Benign Prostatic Hyperplasia, Hx End Stage Renal Disease, Hx Kidney Stones, Hx Peritoneal Dialysis GI Medical History: Denies: Hx Cirrhosis, Hx Gastroesophageal Reflux Disease, Hx Ulcer Musculoskeletal Medical History: Denies Hx Arthritis, Denies Hx Multiple Sclerosis Psychiatric Medical History: Denies: Hx Bipolar Disorder, Hx Depression, Hx Schizophrenia Traumatic Medical History: Reports: Other - 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 HENT: Negative for sore throat. Eyes: Blind in right eye secondary to old injury. Cardiovascular: As per HPI. Respiratory: Negative for shortness of breath. Gastrointestinal: As per HPI. Genitourinary: Negative for dysuria. Musculoskeletal: As per HPI. Skin: Negative for rash. Neurological: Negative for headaches, focal weakness or numbness. 10 point ROS negative except as marked above and in HPI. Physical Exam - Vital signs Vitals: Temp BP Pulse Ox 97.7 F 70/51 L 99 09/14/19 15:52 09/14/19 15:52 09/14/19 15:52 Interpretation: Other - Patient is hypotensive BP 70 over palp - Notes Notes: GENERAL: Mildly obese middle-age male who is awake and alert appearing mildly uncomfortable. SKIN: Cool and diaphoretic. Good turgor no rashes. HEAD: Normocephalic atraumatic. EYES: Patient has old injury of the right eye with constricted irregular pupil w hich is nonreactive and clouding of the cornea. Left pupil is mid position and appropriately reactive to light with vision intact. EARS: CANALS AND TMS CLEAR. NOSE: CLEAR. MOUTH: Moist mucosa. Good dentition. No stridor or edema. No drooling. NECK: Supple. No masses or thyromegaly. No adenopathy. Carotids 2+ without bruits. No JVD. BACK: Symmetrical without tenderness. CHEST: Respirations unlabored. Breath sounds clear and symmetrical. HEART: Regular rhythm. No murmur gallop or rub. ABDOMEN: Soft, mildly obese, nontender without masses, organomegaly or rebound. Bowel sounds normally active. No bruits. GENITALIA: Deferred. EXTREMITIES: No edema. No calf tenderness. Cap refill 2 seconds. Peripheral pulses are nonpalpable. NEUROLOGICAL: GCS 15. Alert and oriented x3. Fluent speech. Cranial nerves II through XII intact. Sensorimotor and cerebellar normal. Normal tone. PSYCHIATRIC: Appropriate affect. Course - Re-evaluation Re-evalutation: 09/14/19 16:34 2 L IV normal saline bolus has been initiated. BP is now up to 85/60. Patient has had infusion of about 1 L of normal saline at this point with ongoing fluid bolus in progress. Patient reports his chest discomfort has subsided to a level about 4/10. First EKG showed some T wave inversions inferolaterally. A second EKG has been obtained which shows similar changes. There is no ST elevation. There is no ST depression. We going to continue fluid infusion and repeat an EKG in 15 minutes. I have looked at the chest x-ray and I do not see any obvious mediastinal widening. On the basis of his presentation however I think we will need to get a CTA to be sure he does not have a dissection. 09/15/19 01:29 Patient was found to have an acute kidney injury with of new elevation of creatinine around 4.1. CBC suggests hemoconcentration consistent with volume depletion. He has been aggressively rehydrated with normal saline. His systolic pressure gradually came up over 100. He continued to have chest discomfort and had persistent T wave inversions in multiple leads with no associated ST shift. Noncontrast CT of chest abdomen pelvis showed no evidence of dissection. Because of his persistent chest pain with minimal elevation of troponin case was discussed with cardiology service at [facility]. They recommended that we heparinize the patient and because of his low blood pressure they did not feel we should put him on nitroglycerin. They initially agreed to take him in transfer pending result of rapid COVID testing. COVID test was reported as negative. We communicated with [facility] again they stated that patient been placed on waiting list there would be no bed available for at least 24 hours. Patient has subsequently experienced total resolution of his chest pain. His blood pressure remains above 100. He is hungry and wishes to eat. He is urinating now and specimen is been sent to lab for urinalysis. Case has been discussed with on-call hospitalist Dr. Girish Vasquez who will admit to telemetry. - Vital Signs Vital signs: Temp Pulse Resp BP Pulse Ox 98 F 19 106/76 98 09/14/19 18:46 09/14/19 23:45 09/14/19 23:45 09/14/19 23:45 - Laboratory Result Diagrams: 09/14/19 16:10 09/15/19 00:53 Laboratory results interpreted by me: 09/14/19 09/14/19 09/14/19 16:10 16:10 16:10 RBC 5.80 H Hgb 18.0 H Hct 52.4 H RDW 14.1 H D-Dimer Sodium 136.3 L Chloride Carbon Dioxide Anion Gap BUN 34 H Creatinine 4.15 H Est GFR ( Amer) 18 L Est GFR (MDRD) Non-Af 15 L Calcium NT-Pro-B Natriuret Pep 2590 H 09/14/19 09/15/19 16:10 00:53 RBC Hgb Hct RDW D-Dimer 0.81 H Sodium 135.1 L Chloride 110 H Carbon Dioxide 21 L Anion Gap 4 L BUN 31 H Creatinine 2.75 H Est GFR ( Amer) 29 L Est GFR (MDRD) Non-Af 24 L Calcium 7.4 L NT-Pro-B Natriuret Pep - EKG Interpretation by Me Additional EKG results interpreted by me: 09/14/19 16:39 EKG #1 was reviewed contemporaneously by me at 1545 hrs. demonstrating a normal sinus rhythm with a rate of 82 and new T wave inversions were noted compared with a prior tracing of February 21, 2017. These are located inferolaterally. There are no acute ST shifts present. The QRS axis is normal at +28 degrees and intervals are normal. Indication for study: Chest pain and hypotension. EKG #2 was obtained at 1629 hrs. and reviewed contemporaneously by me and is unchanged from EKG #1. Critical Care Note - Critical Care Note Total time excluding time spent on procedures (mins): 65 - Hypotension, CEZAR, Active CP Discharge - Discharge Clinical Impression: Acute kidney injury, Dehydration Chest pain Qualifiers: Chest pain type: unspecified Qualified Code(s): R07.9 - Chest pain, unspecified Hypotension Qualifiers: Hypotension type: hypotension due to hypovolemia Qualified Code(s): I95.89 - Other hypotension Condition: Fair Disposition: ADMITTED OBSERVATION Admitting Provider: Pedro (Hospitalist) Unit Admitted: Telemetry Referrals: LATASHA BRAXTON NP [Primary Care Provider] - Follow up as needed
[2019-09-14] MEDS: NORMAL SALINE 1000 ML 1,000 ML IV PRN ×2 (16:18→16:58)
[2019-09-14 16:30] LABS: ABSOLUTE EOSINOPHILS # (AUTO) 0.1 10^3/uL (0.0-0.6); ABSOLUTE LYMPHOCYTES (AUTO) 2.2 10^3/uL (0.5-4.7); ABSOLUTE MONOCYTES (AUTO) 1.2 10^3/uL (0.1-1.4); ABSOLUTE NEUT (AUTO) 6.3 10^3/uL (1.7-8.2); BASOPHILS % (AUTO) 0.3 % (0-2); EOSINOPHILS % (AUTO) 1.2 % (0-6); HEMATOCRIT 52.4 % (37.9-51.0); LYMPHOCYTES % (AUTO) 22.4 % (13-45); MEAN CORPUSCULAR HGB CONC 34.3 g/dL (32.0-36.0); MEAN CORPUSCULAR VOLUME 90 fl (80-97); MONOCYTES % (AUTO) 12.1 % (3-13); PLATELET COUNT 220 10^3/uL (150-450); RED CELL DISTRIBUTION WIDTH 14.1 % (11.5-14.0); TOTAL CELLS COUNTED % (AUTO) 100 %; WHITE BLOOD COUNT 9.9 10^3/uL (4.0-10.5)
[2019-09-14] MEDS ORDERED: NORMAL SALINE 1000 ML 1,000 ML IV ONE ×2 (16:46→20:21)
[2019-09-14 16:51] LABS: ALBUMIN 3.7 g/dL (3.5-5.0); ALKALINE PHOSPHATASE 62 U/L (38-126); ANION GAP 8 (5-19); ASPARTATE AMINO TRANSFERASE 22 U/L (17-59); BILIRUBIN,DIRECT 0.1 mg/dL (0.0-0.4); BILIRUBIN,TOTAL 0.8 mg/dL (0.2-1.3); BLOOD UREA NITROGEN 34 mg/dL (7-20); CALCIUM 9.2 mg/dL (8.4-10.2); CARBON DIOXIDE 23 mmol/L (22-30); CHLORIDE 105 mmol/L (98-107); CREATINE KINASE 167 U/L (55-170); GLUCOSE 88 mg/dL (75-110); POTASSIUM 4.2 mmol/L (3.6-5.0); TOTAL PROTEIN 6.4 g/dL (6.3-8.2)
--- NOTE | 2019-09-14 16:55 | RADIOLOGY REPORT (SQ) ---
EXAM DESCRIPTION: CHEST SINGLE VIEW IMAGES COMPLETED DATE/TIME: 09/14/2019 3:29 pm REASON FOR STUDY: chest pain COMPARISON: 01/01/2018 EXAM PARAMETERS: NUMBER OF VIEWS: One view. TECHNIQUE: Single frontal radiographic view of the chest acquired. RADIATION DOSE: NA LIMITATIONS: None. FINDINGS: LUNGS AND PLEURA: No opacities, masses or pneumothorax. No pleural effusion. MEDIASTINUM AND HILAR STRUCTURES: No masses. Contour normal. HEART AND VASCULAR STRUCTURES: Heart normal in size. Normal vasculature. BONES: No acute findings. HARDWARE: None in the chest. OTHER: No other significant finding. IMPRESSION: NO ACUTE RADIOGRAPHIC FINDING IN THE CHEST. TECHNICAL DOCUMENTATION: JOB ID: [id number] 2010 [employer]- All Rights Reserved Reading location - IP/workstation name: [email or web address]
[2019-09-14 17:06] LABS: TROPONIN I 0.091 ng/mL
[2019-09-14 17:18] LABS: INTERNATIONAL RATION (INR) 1.12; PARTIAL THROMBOPLASTIN TIME 26.4 SEC (23.5-35.8); PROTHROMBIN TIME 14.5 SEC (11.4-15.4)
--- NOTE | 2019-09-14 17:59 | RADIOLOGY REPORT (SQ) ---
EXAM DESCRIPTION: CT CHEST WITHOUT IMAGES COMPLETED DATE/TIME: 09/14/2019 4:35 pm REASON FOR STUDY: Chest Pain. COMPARISON: CT chest, 11/24/2016. Chest radiograph same date. TECHNIQUE: CT scan performed of the chest without intravenous contrast. Images reviewed with lung, soft tissue and bone windows. Reconstructed coronal and sagittal MPR images reviewed. All images st ored on PACS. All CT scanners at this facility use dose modulation, iterative reconstruction, and/or weight based d osing when appropriate to reduce radiation dose to as low as reasonably achievable (ALARA). [facility]: Dose Right [facility]: CareDose [facility]: Dose Right [facility]: Teradose 4D [facility]: Smart [employer] RADIATION DOSE: CT Rad equipment meets quality standard of care and radiation dose reduction techniq ues were employed. CTDIvol: 18.0 mGy. DLP: 692 mGy-cm. mGy. LIMITATIONS: No technical limitations. FINDINGS: LUNGS AND PLEURA: The trachea has normal caliber and appearance. No bronchial wall thicke doris or bronchiectasis. No focal consolidation. No pleural effusion or pneumothorax. No suspicious pulmonary nodules. HILAR AND MEDIASTINAL STRUCTURES: No identified masses or abnormal nodes. No obvious aneurysm. HEART AND VASCULAR STRUCTURES: The heart is moderately enlarged. No pericardial effusion. Ascending thoracic aorta measures 4.4 cm diameter, stable in appearance and caliber since previous examination in 2017. Aortic arch is also enlarged measuring 5.0 cm diameter. No periaortic fluid or inflammato ry change. Descending thoracic aorta has normal caliber and appearance. UPPER ABDOMEN: Exophytic right superior pole renal cortical lesion has increased in size since previo us now measuring 5.5 cm, previously 3.8 cm, indeterminate. This is intermediate density and may repr esent a solid mass. There is a nonobstructing right superior pole renal calculus. There is cholelit hiasis. THYROID AND OTHER SOFT TISSUES: No masses. No adenopathy. BONES: No significant finding. HARDWARE: None in the chest. OTHER: No other significant findings. IMPRESSION: 1. No acute pulmonary disease. 2. Ascending thoracic aortic aneurysm not significantly changed from previous examination. Ascending thoracic aorta measures maximum 4.4 cm diameter. No periaortic fluid. 3. Indeterminate right renal cortical lesion has increased in size since previous examination and may represent a solid mass. Further evaluation with contrast-enhanced renal protocol CT or MRI is recom mended for complete characterization. 4. Nonobstructing right superior pole renal calculus. 5. Cholelithiasis. TECHNICAL DOCUMENTATION: JOB ID: [id number] Quality ID # [id number]: Final reports with documentation of one or more dose reduction techniques (e.g., Au tomated exposure control, adjustment of the mA and/or kV according to patient size, use of iterative reconstruction technique) 2010 [employer]- All Rights Reserved Reading location - IP/workstation name: [email or web address]
--- NOTE | 2019-09-14 19:00 | RADIOLOGY REPORT (SQ) ---
EXAM DESCRIPTION: CT ABD/PELVIS NO ORAL OR IV IMAGES COMPLETED DATE/TIME: 09/14/2019 5:33 pm REASON FOR STUDY: CEZAR. Right renal cortical lesion on recent CT chest. COMPARISON: CT chest same date. CT chest 11/24/2016. TECHNIQUE: CT scan of the abdomen and pelvis performed without intravenous or oral contrast. Images reviewed with lung, soft tissue, and bone windows. Reconstructed coronal and sagittal MPR images revi ewed. All images stored on PACS. All CT scanners at this facility use dose modulation, iterative reconstruction, and/or weight based d osing when appropriate to reduce radiation dose to as low as reasonably achievable (ALARA). [facility]: Dose Right [facility]: CareDose [facility]: Dose Right [facility]: Teradose 4D [facility]: [employer] RADIATION DOSE: CT Rad equipment meets quality standard of care and radiation dose reduction techniq ues were employed. CTDIvol: 18.4 mGy. DLP: 973 mGy-cm.mGy. LIMITATIONS: None. FINDINGS: LOWER CHEST: No significant findings. No nodules or infiltrates. NON-CONTRASTED LIVER, SPLEEN, ADRENALS: Evaluation limited by lack of IV contrast. No identified sign ificant masses. PANCREAS: No masses. No peripancreatic inflammatory changes. GALLBLADDER: Gallstones. No inflammatory changes to suggest cholecystitis. RIGHT KIDNEY AND URETER: There is an exophytic measuring intermediate Hounsfield units that measures 6.2 x 4.8 cm, indeterminate. This has increased in size since previous CT of the chest in 2015 and m ay represent a solid or complex cystic renal cortical mass. . There are nonobstructing right renal calculi. No obstructing renal or ureteral calculus. No hydronephrosis. No perinephric fluid. Ur eter has normal caliber and appearance. LEFT KIDNEY AND URETER: No suspicious masses. Assessment limited by lack of IV contrast. There is a n exophytic left renal cortical cyst measuring 2.4 cm, slightly increased in size from previous exami nation. Punctate nonobstructing left inferior pole renal calculus. No obstructing renal or ureteral calculi. No hydronephrosis or hydroureter. No perinephric fluid. Ureter has normal caliber and a ppearance. AORTA AND RETROPERITONEUM: No aneurysm. No retroperitoneal masses or adenopathy. There is aneurysmal dilation of what appears to be the right internal iliac artery up to 3.2 cm diameter. BOWEL AND PERITONEAL CAVITY: There are scattered colonic diverticula without evidence of acute divert iculitis. No bowel obstruction. No obvious masses or inflammatory changes. No free fluid. APPENDIX: Normal. PELVIS, BLADDER, AND ABDOMINAL WALL:Prostate has normal size. Urinary bladder has normal contour. C alcified pelvic phleboliths. BONES: Serpiginous sclerosis of the femoral heads bilaterally consistent with mild avascular necrosis . No femoral head collapse. Normal femoroacetabular alignment. No suspicious bone lesions. OTHER: No other significant finding. IMPRESSION: 1. No acute abnormality in the abdomen or pelvis. 2. Exophytic 6.2 cm right renal cortical mass has increased in size since previous CT of the chest in 2015, and is indeterminate. This may represent a complex cyst or possibly a solid mass. Given the increase in size, a nonemergent follow-up CT utilizing renal protocol (without and with IV contrast) is recommended for complete characterization. 3. 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 No abdominal aortic aneury sm. No surrounding fluid or inflammatory change. 4. Cholelithiasis. No CT evidence of acute cholecystitis. 5. Bilateral nonobstructing renal calculi. No obstructing calculus or hydronephrosis. 6. Colonic diverticulosis without evidence of diverticulitis. COMMENT: Quality ID # [id number]: Final reports with documentation of one or more dose reduction techniques (e.g., Automated exposure control, adjustment of the mA and/or kV according to patient size, use of iterative reconstruction technique) TECHNICAL DOCUMENTATION: JOB ID: [id number] 2010 [employer]- All Rights Reserved Reading location - IP/workstation name: [email or web address]
[2019-09-14] MEDS ORDERED: HEPARIN SOD (PORCINE) 1,000 UNIT/ML 10 ML VIAL IV ONE (20:08)
[2019-09-14] MEDS ORDERED: HEPARIN SODIUM,PORCINE/D5W 25,000 UNIT/250 ML RTUINJ IV PRN (20:08)
[2019-09-14] MEDS ORDERED: ONDANSETRON HCL INJ/PF 4 MG/2 ML SDV IV ONE (20:44)
--- NOTE | 2019-09-14 21:38 | EKG REPORT ---
SEVERITY:- ABNORMAL ECG - SINUS RHYTHM VENTRICULAR PREMATURE COMPLEX PROBABLE LEFT ATRIAL ABNORMALITY ABNORMAL T, CONSIDER ISCHEMIA, ANT-LAT LEADS : Confirmed by: Lai Marin 14-Sep-2019 21:37:43
--- NOTE | 2019-09-14 21:38 | EKG REPORT ---
SEVERITY:- ABNORMAL ECG - SINUS RHYTHM VENTRICULAR PREMATURE COMPLEX ABNORMAL T, CONSIDER ISCHEMIA, LATERAL LEADS : Confirmed by: Lai Marin 14-Sep-2019 21:37:35
--- NOTE | 2019-09-14 21:38 | EKG REPORT ---
SEVERITY:- ABNORMAL ECG - SINUS RHYTHM LOW VOLTAGE THROUGHOUT ABNORMAL T, CONSIDER ISCHEMIA, DIFFUSE LEADS : Confirmed by: Lai Marin 14-Sep-2019 21:37:19
[2019-09-14] MEDS ORDERED: HEPARIN SOD (PORCINE) 1,000 UNIT/ML 10 ML VIAL IV PRN (23:09)
[2019-09-15 01:18] LABS: BLOOD UREA NITROGEN 31 mg/dL (7-20); CALCIUM 7.4 mg/dL (8.4-10.2); CARBON DIOXIDE 21 mmol/L (22-30); CHLORIDE 110 mmol/L (98-107); GLUCOSE 102 mg/dL (75-110)
[2019-09-15 01:24] LABS: ANION GAP 4 (5-19)
[2019-09-15] MEDS ORDERED: ONDANSETRON HCL INJ/PF 4 MG/2 ML SDV IV PRN (02:02)
[2019-09-15] MEDS ORDERED: RINGERS SOLUTION,LACTATED 1,000 ML IV PRN (02:02)
[2019-09-15] MEDS ORDERED: MAG HYDROX/AL HYDROX/SIMETH SUSP 30 ML UDCUP PO PRN (02:02)
[2019-09-15] MEDS ORDERED: MAGNESIUM HYDROXIDE SUSP 30 ML UDCUP PO PRN (02:02)
[2019-09-15] MEDS ORDERED: LEVALBUTEROL HCL NEB 0.63 MG/3 ML AMPUL NEB PRN (02:02)
[2019-09-15 02:10] LABS: ABSOLUTE EOSINOPHILS # (AUTO) 0.2 10^3/uL (0.0-0.6); ABSOLUTE LYMPHOCYTES (AUTO) 2.6 10^3/uL (0.5-4.7); ABSOLUTE MONOCYTES (AUTO) 0.9 10^3/uL (0.1-1.4); ABSOLUTE NEUT (AUTO) 5.7 10^3/uL (1.7-8.2); BASOPHILS % (AUTO) 0.4 % (0-2); EOSINOPHILS % (AUTO) 1.8 % (0-6); HEMATOCRIT 43.9 % (37.9-51.0); LYMPHOCYTES % (AUTO) 27.8 % (13-45); MEAN CORPUSCULAR HEMOGLOBIN 30.8 pg (27.0-33.4); MEAN CORPUSCULAR HGB CONC 33.7 g/dL (32.0-36.0); MEAN CORPUSCULAR VOLUME 91 fl (80-97); MONOCYTES % (AUTO) 9.1 % (3-13); PLATELET COUNT 165 10^3/uL (150-450); RED BLOOD COUNT 4.81 10^6/uL (4.35-5.55); RED CELL DISTRIBUTION WIDTH 14.1 % (11.5-14.0); SEGMENTED NEUTROPHILS % (AUTO) 60.9 % (42-78); TOTAL CELLS COUNTED % (AUTO) 100 %; WHITE BLOOD COUNT 9.4 10^3/uL (4.0-10.5)
[2019-09-15 02:17] LABS: HEMOGLOBIN 14.8 g/dL (13.5-17.0)
[2019-09-15] MEDS ORDERED: HEPARIN SODIUM,PORCINE/D5W 25,000 UNIT/250 ML RTUINJ IV PRN (02:34)
[2019-09-15 04:21] LABS: CREATINE KINASE MB 2.02 ng/mL (<4.55); TROPONIN I 0.086 ng/mL
--- NOTE | 2019-09-15 05:00 | PDOC H&P ---
History of Present Illness Admission Date/PCP: LATASHA BRAXTON NP Patient complains of: Chest pain History of Present Illness: AGUILAR LEAL is a 54 year old male who presented to the emergency room with a 1 day history of chest pain. He admits developing a constant, moderately intense dull pain in his central chest radiating straight through to his back on the evening of 09/13/2019. The pain has been persistent since onset and gradually worsened, becoming severe, while he was working out in the heat on the afternoon of 09/14/2019. His chest pain has been accompanied diaphoresis and has been associated with generalized weakness, dizziness and lightheadedness. He denies other associated or accompanying signs and symptoms. He admits prior similar episodes with heart problems. He admits having worked out in the heat for the last 2 days and notes that he has not been drinking a lot of fluids and he had not passed any urine on 09/14/2019. He has not identified any additional aggravating or ameliorating factors for his chest pain. In the emergency room he was found to have an EKG that showed some nonspecific T wave changes and cardiac enzymes which showed no evidence of acute myocardial injury or ischemia and trended down over the course of his ER stay. He received bolus IV fluids as he had been initially hypotensive and he was started on a heparin infusion for his chest pain. His chest pain resolved in the emergency room and his hypotension also resolved. He was subsequently admitted to the observation status on the telemetry unit for further evaluation and treatment. Past Medical History Cardiac Medical History: Reports: Congestive Heart Failure, Coronary Artery Disease, Hypertension Denies: Atrial Fibrillation, DVT, Myocardial Infarction, Hyperlipidema, Peripheral Vascular Disease, Pulmonary Embolism Pulmonary Medical History: Reports: Asthma, Bronchitis, Chronic Obstructive Pulmonary Disease (COPD), Pneumonia Denies: Tuberculosis EENT Medical History: Reports: Eyes - Post-traumatic right eye blindness Denies: Ears - Hearing aids Neurological Medical History: Denies: Hemorrhagic CVA, Ischemic CVA, Seizures Endocrine Medical History: Reports: Obesity Denies: Diabetes Mellitus Type 1, Diabetes Mellitus Type 2, Hyperthyroidism, Hypothyroidism Renal/ Medical History: Reports: Chronic Kidney Disease Denies: Nephrolithiasis Malignancy Medical History: Reports: None GI Medical History: Denies: Cirrhosis, Crohn's Disease, Gastroesophageal Reflux Disease, Hepatitis, Peptic Ulcer Disease, Ulcerative Colitis Musculoskeltal Medical History: Denies: Arthritis, Gout Skin Medical History: Denies: Eczema, Psoriasis Psychiatric Medical History: Reports: Tobacco Dependency Denies: Alcohol Dependency, Bipolar Disorder, Depression, Substance Abuse Traumatic Medical History: Reports: Other - Patient is blind in his right eye se condary to old blunt trauma Hematology: Denies: Anemia, Bleeding Tendencies Infectious Medical History: Reports: None Past Surgical History Past Surgical History: Reports: Cardiac Catheterization, Orthopedic Surgery, Other - Right eye surgery Social History Information Source: Patient Lives with: Family Smoking Status: Current Every Day Smoker Electronic Cigarette use?: No Frequency of Alcohol Use: Occasional Hx Recreational Drug Use: No Drugs: None Hx Prescription Drug Abuse: No - Advance Directive Resuscitation Status: Full Code Surrogate healthcare decision maker:: Wellington Leal Family History Family History: CAD, COPD, DM, Hypertension, Malignancy - Father with bladder cancer Parental Family History Reviewed: Yes Children Family History Reviewed: No Sibling(s) Family History Reviewed.: Yes Medication/Allergy Home Medications: Aspirin [Aspirin 81 mg Chewable Tablet] 81 mg PO DAILY 02/17/17 Carvedilol [Coreg 12.5 mg Tablet] 12.5 mg PO Q12 02/17/17 Furosemide [Lasix 40 mg Tablet] 40 mg PO QAM 02/17/17 Lisinopril/Hydrochlorothiazide [Lisinopril-Hctz 10-12.5 mg Tab] 0.5 tab PO DAILY 01/01/18 Allergies/Adverse Reactions: No Known Allergies Allergy (Verified 09/14/19 16:53) Review of Systems Constitutional: PRESENT: as per HPI, weakness. ABSENT: chills, fever(s) Eyes: ABSENT: visual disturbances, other - Eye pain Ears: ABSENT: hearing changes, other - Ear pain Nose, Mouth, and Throat: ABSENT: headache(s), sore throat Cardiovascular: PRESENT: as per HPI, chest pain. ABSENT: dyspnea on exertion, edema, orthropnea, palpitations Respiratory: ABSENT: cough, dyspnea Gastrointestinal: ABSENT: abdominal pain, constipation, diarrhea, nausea, vomiting Musculoskeletal: ABSENT: back pain, joint swelling Integumentary: PRESENT: as per HPI, diaphoresis Neurological: PRESENT: as per HPI, dizziness, syncope - Intermittent brief syncopal episodes associated with cough for the last several years, other - Lightheadedness. ABSENT: confusion, convulsions, focal weakness, memory loss Psychiatric: ABSENT: anxiety, depression Endocrine: ABSENT: cold intolerance, heat intolerance Hematologic/Lymphatic: ABSENT: easy bleeding, easy bruising Allergic/Immunologic: ABSENT: seasonal rhinorrhea Physical Exam Vital Signs: Temp Pulse Resp BP Pulse Ox 98 F 19 106/76 98 09/14/19 18:46 09/14/19 23:45 09/14/19 23:45 09/14/19 23:45 Intake & Output 09/13/19 09/14/19 09/15/19 23:59 23:59 23:59 Intake Total 3000 Balance 3000 Weight 108.862 kg General appearance: PRESENT: no acute distress, cooperative, obese Head exam: PRESENT: atraumatic, normocephalic Eye exam: PRESENT: conjunctiva pink. ABSENT: conjunctival injection, scleral icterus Ear exam: PRESENT: normal external ear exam. ABSENT: bleeding, drainage Mouth exam: PRESENT: dry mucosa, neck supple Neck exam: ABSENT: thyromegaly, tracheal deviation Respiratory exam: PRESENT: clear to auscultation davie, symmetrical, unlabored Cardiovascular exam: PRESENT: RRR. ABSENT: clicks, gallop, rubs Pulses: PRESENT: normal radial pulses, normal dorsalis pedis pul Vascular exam: PRESENT: normal capillary refill. ABSENT: pallor GI/Abdominal exam: PRESENT: normal bowel sounds, soft. ABSENT: tenderness Rectal exam: PRESENT: deferred Extremities exam: ABSENT: joint swelling, pedal edema Musculoskeletal exam: ABSENT: deformity, dislocation Neurological exam: PRESENT: alert, oriented to person, oriented to place, orient ed to time, oriented to situation, CN II-XII grossly intact. ABSENT: motor sensory deficit Psychiatric exam: PRESENT: appropriate affect, normal mood Skin exam: PRESENT: dry, intact, warm. ABSENT: jaundice, rash, urticaria Results Laboratory Results: 09/14/19 16:10 09/15/19 00:53 09/14/19 09/14/19 09/15/19 16:10 16:10 00:53 WBC 9.9 RBC 5.80 H Hgb 18.0 H Hct 52.4 H MCV 90 MCH 31.0 MCHC 34.3 RDW 14.1 H Plt Count 220 Seg Neutrophils % 64.0 Sodium 136.3 L 135.1 L Potassium 4.2 4.0 Chloride 105 110 H Carbon Dioxide 23 21 L Anion Gap 8 4 L BUN 34 H 31 H Creatinine 4.15 H 2.75 H Est GFR ( Amer) 18 L 29 L Glucose 88 102 Calcium 9.2 7.4 L Total Bilirubin 0.8 AST 22 Alkaline Phosphatase 62 Total Protein 6.4 Albumin 3.7 09/14/19 09/14/19 09/14/19 16:10 16:10 19:47 Creatine Kinase 167 Troponin I 0.091 0.058 NT-Pro-B Natriuret Pep 2590 H Impressions: Chest CT 09/14/19 00:00 IMPRESSION: 1. No acute pulmonary disease. 2. Ascending thoracic aortic aneurysm not significantly changed from previous examination. Ascending thoracic aorta measures maximum 4.4 cm diameter. No periaortic fluid. 3. Indeterminate right renal cortical lesion has increased in size since previous examination and may represent a solid mass. Further evaluation with contrast-enhanced renal protocol CT or MRI is recommended for complete characterization. 4. Nonobstructing right superior pole renal calculus. 5. Cholelithiasis. Chest X-Ray 09/14/19 16:03 IMPRESSION: NO ACUTE RADIOGRAPHIC FINDING IN THE CHEST. Abdomen/Pelvis CT 09/14/19 17:59 IMPRESSION: 1. No acute abnormality in the abdomen or pelvis. 2. Exophytic 6.2 cm right renal cortical mass has increased in size since previous CT of the chest in 2015, and is indeterminate. This may represent a complex cyst or possibly a solid mass. Given the increase in size, a nonemergent follow-up CT utilizing renal protocol (without and with IV contrast) is recommended for complete characterization. 3. 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 No abdominal aortic aneurysm. No surrounding fluid or inflammatory change. 4. Cholelithiasis. No CT evidence of acute cholecystitis. 5. Bilateral nonobstructing renal calculi. No obstructing calculus or hydronephrosis. 6. Colonic diverticulosis without evidence of diverticulitis. Assessment and Plan - Diagnosis (1) Chest pain Qualifiers: Chest pain type: unspecified Qualified Code(s): R07.9 - Chest pain, unspecified Is this a current diagnosis for this admission?: Yes (2) Troponin I above reference range Is this a current diagnosis for this admission?: Yes (3) Heat exhaustion due to water depletion Qualifiers: Encounter type: initial encounter Qualified Code(s): T67.3XXA - Heat exhaustion, anhydrotic, initial encounter Is this a current diagnosis for this admission?: Yes (4) Hypotension due to hypovolemia Is this a current diagnosis for this admission?: Yes (5) Acute kidney injury Is this a current diagnosis for this admission?: Yes (6) Cough syncope syndrome Is this a current diagnosis for this admission?: Yes (7) Chronic combined systolic and diastolic congestive heart failure Is this a current diagnosis for this admission?: Yes (8) COPD (chronic obstructive pulmonary disease) Qualifiers: COPD type: unspecified COPD Qualified Code(s): J44.9 - Chronic obstructive pulmonary disease, unspecified Is this a current diagnosis for this admission?: Yes (9) Hypertension Qualifiers: Hypertension type: essential hypertension Qualified Code(s): I10 - Essential (primary) hypertension Is this a current diagnosis for this admission?: Yes (10) Tobacco dependency Is this a current diagnosis for this admission?: Yes - Plan Summary Summary: Patient will be admitted to observation status on the telemetry medical floor. He will receive routine supportive and symptomatic cares. He will receive high- volume IV fluids using lactated Ringer solution at 250 mL/h initially. He will be maintained on a heparin infusion per protocol, until after he has been evaluated by Dr. Prabhakar. Cardiology consultation with Dr. Prabhakar will be obtained. Serial cardiac enzymes will be obtained. CBCs, metabolic profiles, magnesium levels and additional laboratory and/or radiographic evaluations will be obtained as needed. Patient will be on a cardiac diet. Smoking cessation is advised and counseled briefly at the bedside. A nicotine replacement patch is available for the patient's use, if desired. - Time Time Spent with patient: 15-24 minutes Smoking Cessation Education: 3 to 10 minutes Medications reviewed and adjusted accordingly: Yes Anticipated Discharge Disposition: Home, Self Care Anticipated Discharge: within 48 hours
[2019-09-15] MEDS ORDERED: HEPARIN SOD (PORCINE) 1,000 UNIT/ML 10 ML VIAL IV PRN (05:35)
[2019-09-15] MEDS: PANTOPRAZOLE SODIUM 40 MG TABLET.DR PO SCH (06:24)
--- NOTE | 2019-09-15 08:37 | PDOC CONSULTATION ---
Consultation Consult Date: 09/15/19 Attending physician:: JOSE ROBERTO LUCIA Provider Consulted: PENNIE WASHINGTON Consult reason:: CP History of Present Illness Admission Date/PCP: 09/15/19 01:39 History of Present Illness: The patient is a 54-year-old male with history of HTN, stage III CKD, systolic and diastolic heart failure with initial diagnosis in late 2016, suspected coronary artery disease by Lexiscan nuclear stress test in February 2017 demonstrating inferior wall WA versus diaphragmatic attenuation with an ejection fraction of 25% and no evidence of ischemia who is consulted to our service for evaluation of chest pain. The patient was initially evaluated by Dr. Marin in late 2016 when he presented with shortness of breath. At that time he was diagnosed with heart failure but unfortunately no echocardiogram was done at the time. He did undergo stress testing revealing no ischemia however he did have a fixed perfusion defect in inferior wall which was consistent with a prior WA versus diaphragmatic attenuation. His ejection fraction during that study was estimated to be 25% however no echocardiogram was done. He had been in his usual state of health until approximately 2 days ago when he began with chest pain that he described as a pressure, localized to an area underneath his left breast, with radiation to the back, neck and left shoulder, that lasted all night long and that resolved spontaneously. He did experience some shortness of breath as well as diaphoresis. He had been working in the heat for several days and upon presentation to the emergency room he was noted to be hypotensive with a systolic pressure of 70 mmHg. Per the nursing staff, he received 4 L of saline in the emergency room with resolution of his hypotension. His creatinine was 4.15 and later came down to 2.75. He was also begun on on a heparin drip and was awaiting transport to [facility] however they had a waiting list therefore was decided to admit the patient here. He feels well this morning and is found resting comfortably in bed. He specifically denies chest pain, shortness of breath, QUIJANO, PND, lower extremity edema, palpitations. There has been no recurrence of his chest pain. His telemetry demonstrates normal sinus rhythm with occasional PVCs. His main complaint this morning is recurrence of syncope when coughing, this has been going on for a while now. Physical exam on 09/15/19: GENERAL: Obese Pleasant and conversational. Oriented x3 with normal mood. Not in acute distress. Well groomed and well developed. HEENT: Normocephalic, atraumatic. Sclerae anicteric. Oropharynx moist. NECK: No JVD. No carotid bruits. LUNGS: Clear to auscultation bilaterally. Normal respiratory effort without the use of accessory muscles or intercostal retractions. CARDIOVASCULAR: Regular rate and rhythm, normal S1 and S2 without murmurs, rubs, or gallops. PMI not displaced. ABDOMEN: No masses or tenderness to palpation. No bruit. No splenomegaly or hepatomegaly. No abdominal aorta bruit noted. EXTREMITIES: No edema, no cyanosis, no clubbing. +2 pulses femoral and pedal pulses bilaterally. SKIN: No lesions or rashes. MUSCULOSKELETAL: No chest tenderness to palpation. NEUROLOGIC: Nonfocal. No gross sensory or motor deficits bilateral upper or lower extremities. Past Medical History Cardiac Medical History: Reports: Congestive Heart Failure, Coronary Artery Dise ase, Hypertension Denies: Atrial Fibrillation, DVT, Myocardial Infarction, Hyperlipidema, Peripheral Vascular Disease, Pulmonary Embolism Pulmonary Medical History: Reports: Asthma, Bronchitis, Chronic Obstructive Pulmonary Disease (COPD), Pneumonia Denies: Tuberculosis EENT Medical History: Reports: Eyes - Post-traumatic right eye blindness Denies: Ears - Hearing aids Neurological Medical History: Denies: Hemorrhagic CVA, Ischemic CVA, Seizures Endocrine Medical History: Reports: Obesity Denies: Diabetes Mellitus Type 1, Diabetes Mellitus Type 2, Hyperthyroidism, Hypothyroidism Renal/ Medical History: Reports: Chronic Kidney Disease Denies: End Stage Renal Disease, Nephrolithiasis Malignancy Medical History: Reports: None GI Medical History: Denies: Cirrhosis, Crohn's Disease, Gastroesophageal Reflux Disease, Hepatitis, Peptic Ulcer Disease, Ulcerative Colitis Musculoskeltal Medical History: Denies: Arthritis, Gout Skin Medical History: Denies: Eczema, Psoriasis Psychiatric Medical History: Reports: Tobacco Dependency Denies: Alcohol Dependency, Bipolar Disorder, Depression, Substance Abuse Traumatic Medical History: Reports: Other - Patient is blind in his right eye secondary to old blunt trauma Hematology: Denies: Anemia, Bleeding Tendencies Infectious Medical History: Reports: None Past Surgical History Past Surgical History: Reports: Cardiac Catheterization, Orthopedic Surgery, Other - Right eye surgery Social History Lives with: Family Smoking Status: Current Every Day Smoker Cigarettes Packs Per Day: 1 Electronic Cigarette use?: No Number of Years Smokin Last Time Smoked: 7/24/20 Frequency of Alcohol Use: Occasional Hx Recreational Drug Use: No Drugs: None Hx Prescription Drug Abuse: No - Advance Directive Resuscitation Status: Full Code Family History Family History: CAD, COPD, DM, Hypertension, Malignancy - Father with bladder cancer Parental Family History Reviewed: Yes Children Family History Reviewed: Yes Sibling(s) Family History Reviewed.: Yes Medication/Allergy Home Medications: Aspirin [Aspirin 81 mg Chewable Tablet] 81 mg PO DAILY 02/17/17 Carvedilol [Coreg 12.5 mg Tablet] 12.5 mg PO Q12 02/17/17 Furosemide [Lasix 40 mg Tablet] 40 mg PO QAM 02/17/17 Lisinopril/Hydrochlorothiazide [Lisinopril-Hctz 10-12.5 mg Tab] 0.5 tab PO DAILY 01/01/18 Allergies/Adverse Reactions: No Known Allergies Allergy (Verified 09/14/19 16:53) Physical Exam Vital Signs: Temp Pulse Resp BP Pulse Ox 98 F 19 100/67 97 09/14/19 18:46 09/15/19 02:00 09/15/19 01:00 09/15/19 02:00 Intake & Output 09/13/19 09/14/19 09/15/19 06:59 06:59 06:59 Intake Total 4060 Balance 4060 Weight 108.862 kg Results Laboratory Results: 09/15/19 01:50 09/15/19 00:53 09/14/19 09/14/19 09/15/19 16:10 16:10 00:53 WBC 9.9 RBC 5.80 H Hgb 18.0 H Hct 52.4 H MCV 90 MCH 31.0 MCHC 34.3 RDW 14.1 H Plt Count 220 Seg Neutrophils % 64.0 Sodium 136.3 L 135.1 L Potassium 4.2 4.0 Chloride 105 110 H Carbon Dioxide 23 21 L Anion Gap 8 4 L BUN 34 H 31 H Creatinine 4.15 H 2.75 H Est GFR ( Amer) 18 L 29 L Glucose 88 102 Calcium 9.2 7.4 L Total Bilirubin 0.8 AST 22 Alkaline Phosphatase 62 Total Protein 6.4 Albumin 3.7 09/15/19 01:50 WBC 9.4 RBC 4.81 Hgb 14.8 D Hct 43.9 MCV 91 MCH 30.8 MCHC 33.7 RDW 14.1 H Plt Count 165 Seg Neutrophils % 60.9 Sodium Potassium Chloride Carbon Dioxide Anion Gap BUN Creatinine Est GFR ( Amer) Glucose Calcium Total Bilirubin AST Alkaline Phosphatase Total Protein Albumin 09/14/19 09/14/19 09/14/19 16:10 16:10 19:47 Creatine Kinase 167 Troponin I 0.091 0.058 NT-Pro-B Natriuret Pep 2590 H Impressions: Chest CT 09/14/19 00:00 IMPRESSION: 1. No acute pulmonary disease. 2. Ascending thoracic aortic aneurysm not significantly changed from previous examination. Ascending thoracic aorta measures maximum 4.4 cm diameter. No periaortic fluid. 3. Indeterminate right renal cortical lesion has increased in size since previous examination and may represent a solid mass. Further evaluation with contrast-enhanced renal protocol CT or MRI is recommended for complete characterization. 4. Nonobstructing right superior pole renal calculus. 5. Cholelithiasis. Chest X-Ray 09/14/19 16:03 IMPRESSION: NO ACUTE RADIOGRAPHIC FINDING IN THE CHEST. Abdomen/Pelvis CT 09/14/19 17:59 IMPRESSION: 1. No acute abnormality in the abdomen or pelvis. 2. Exophytic 6.2 cm right renal cortical mass has increased in size since previous CT of the chest in 2014, and is indeterminate. This may represent a complex cyst or possibly a solid mass. Given the increase in size, a nonemergent follow-up CT utilizing renal protocol (without and with IV contrast) is recommended for complete characterization. 3. 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 No abdominal aortic aneurysm. No surrounding fluid or inflammatory change. 4. Cholelithiasis. No CT evidence of acute cholecystitis. 5. Bilateral nonobstructing renal calculi. No obstructing calculus or hydronephrosis. 6. Colonic diverticulosis without evidence of diverticulitis. 09/15/19 01:50 09/15/19 00:53 MCV 91 fl (80-97) 09/15/19 01:50 MCH 30.8 pg (27.0-33.4) 09/15/19 01:50 MCHC 33.7 g/dL (32.0-36.0) 09/15/19 01:50 RDW 14.1 % (11.5-14.0) H 09/15/19 01:50 Seg Neutrophils % 60.9 % (42-78) 09/15/19 01:50 Chloride 110 mmol/L (98-107) H 09/15/19 00:53 Carbon Dioxide 21 mmol/L (22-30) L 09/15/19 00:53 Anion Gap 4 (5-19) L 09/15/19 00:53 Est GFR ( Amer) 29 (>60) L 09/15/19 00:53 Glucose 102 mg/dL (75-110) 09/15/19 00:53 Calcium 7.4 mg/dL (8.4-10.2) L 09/15/19 00:53 Total Bilirubin 0.8 mg/dL (0.2-1.3) 09/14/19 16:10 AST 22 U/L (17-59) 09/14/19 16:10 Alkaline Phosphatase 62 U/L (38-126) 09/14/19 16:10 Total Protein 6.4 g/dL (6.3-8.2) 09/14/19 16:10 Albumin 3.7 g/dL (3.5-5.0) 09/14/19 16:10 09/14/19 09/14/19 09/14/19 16:10 16:10 19:47 Creatine Kinase 167 Troponin I 0.091 0.058 NT-Pro-B Natriuret Pep 2590 H Current Medication List Generic Name Dose Route Start Last Admin Trade Name Freq PRN Reason Stop Dose Admin Al Hydrox/Mg Hydrox/Simethicone 30 ml 09/15/19 02:02 Maalox Plus Susp 30 Udcup PO 10/15/19 02:01 Q6HP PRN HEARTBURN Docusate Sodium 100 mg 09/15/19 10:00 Colace 100 Mg Capsule PO 10/15/19 09:59 BID MENA Heparin Sodium (Porcine) 0 - 12,000 unit 09/15/19 05:35 Heparin Inj 1,000 Unit/Ml 10 Ml Vial IV 10/15/19 05:34 .BOLUS PER PROTOCOL PRN RESPOND TO aPTT VALUE Protocol Lactated Ringer's 1,000 mls @ 250 mls/hr 09/15/19 02:02 Lactated Ringers 1000 Ml Iv Soln IV 10/15/19 02:01 CONTINUOUS PRN THIS MED IS NOT "PRN" Heparin Sodium/Dextrose 25,000 unit in 250 mls @ 0 mls/hr 09/15/19 02:34 Heparin Rtu 25,000 Unit/250 Ml D5w Premix IV 10/15/19 02:33 CONTINUOUS PRN THIS MED IS NOT "PRN" Protocol Titrate Levalbuterol HCl 0.63 mg 09/15/19 02:02 Xopenex Neb 0.63 Mg/3 Ml Ampul NEB 10/15/19 02:01 RTQ2HP PRN SHORTNESS OF BREATH Magnesium Hydroxide 30 ml 09/15/19 02:02 Milk Of Magnesia 30 Ml Udcup PO 10/15/19 02:01 DAILYP PRN FOR CONSTIPATION Ondansetron HCl 4 mg 09/15/19 02:02 Zofran Inj/Pf 4 Mg/2 Ml Sdv IV 10/15/19 02:01 Q4HP PRN FOR NAUSEA/VOMITING Pantoprazole Sodium 40 mg 09/15/19 06:[address] Tablet PO 10/15/19 05:59 Q6AM MENA Sodium Chloride 2.5 ml 09/15/19 06:00 Saline Flush 2.5 Ml Monoject Prefil Syrin IV 10/15/19 05:59 Q8 MENA Discontinued Medications Generic Name Dose Route Start Last Admin Trade Name Freq PRN Reason Stop Dose Admin Aspirin 324 mg 09/14/19 16:02 09/14/19 16:07 Aspirin 81 Mg Chewable Tablet PO 09/14/19 16:03 324 mg NOW ONE Administration Heparin Sodium (Porcine) 4,000 unit 09/14/19 20:08 09/14/19 20:51 Heparin Inj 1,000 Unit/Ml 10 Ml Vial IV 09/14/19 20:09 4,000 units NOW ONE Administration Heparin Sodium (Porcine) 0 - 12,000 unit 09/14/19 23:09 Heparin Inj 1,000 Unit/Ml 10 Ml Vial IV 10/14/19 23:08 .BOLUS PER PROTOCOL PRN RESPOND TO aPTT VALUE Protocol Sodium Chloride 1,000 mls @ 0 mls/hr 09/14/19 16:09 09/14/19 17:58 Nacl 0.9% 1000 Ml Iv Soln IV Infused X 2 BAGS PRN Infusion THIS MED IS NOT "PRN" Wide Open Sodium Chloride 1,000 mls @ 0 mls/hr 09/14/19 16:46 09/14/19 17:59 Nacl 0.9% 1000 Ml Iv Soln IV 09/14/19 16:47 Infused BOLUS ONE Infusion Wide Open Heparin Sodium/Dextrose 25,000 unit in 250 mls @ 0 mls/hr 09/14/19 20:08 09/15/19 02:51 Heparin Rtu 25,000 Unit/250 Ml D5w Premix IV 10/14/19 20:07 Infused CONTINUOUS PRN Titration THIS MED IS NOT "PRN" Protocol Titrate Sodium Chloride 1,000 mls @ 200 mls/hr 09/14/19 20:21 09/15/19 02:16 Nacl 0.9% 1000 Ml Iv Soln IV 09/15/19 01:20 Infused NOW ONE Infusion Ondansetron HCl 4 mg 09/14/19 20:44 09/14/19 20:50 Zofran Inj/Pf 4 Mg/2 Ml Sdv IV 09/14/19 20:45 4 mg NOW ONE Administration Assessment & Plan - Diagnosis (1) Chest pain Qualifiers: Chest pain type: unspecified Qualified Code(s): R07.9 - Chest pain, unspecified Is this a current diagnosis for this admission?: Yes Plan: He has remained asymptomatic since admission and with troponins in the indeterminate range. Unfortunately it is completely unclear at this point whether the patient truly has coronary artery disease as I have not been able to find any evidence that he underwent left heart catheterization or even an echocardiogram to estimate his systolic function. He does have significant cardiac risk factors for coronary artery disease and should undergo further ischemic assessment with left heart catheterization given his abnormal nuclear stress test 2 years ago, history of heart failure as well as this episode of chest pain. It is obvious that the patient was severely dehydrated with an acute kidney injury and hypotension which could cause demand related ischemia but on the other hand the question of the presence and severity of coronary artery disease is still on answered. Unfortunately he was not transferred to [facility] as planned and was begun on a heparin drip which, at this point, I do not see a reason for it particularly when he has not been started on any of his outpatient medications and when he has remained asymptomatic and with indeterminate troponins. Recommendations: -Stop heparin drip. -Start baby aspirin daily. -Start outpatient dose of carvedilol once his blood pressure is improved. -High intensity statin therapy. -Echocardiogram to assess systolic function. -Sublingual nitroglycerin for chest pain as needed. -Continue trending cardiac enzymes. -Plan on left heart catheterization once his renal function is improved. (2) Chronic combined systolic and diastolic congestive heart failure Is this a current diagnosis for this admission?: Yes Plan: The patient appears to be euvolemic and without clinical or symptomatic evidence of heart failure. He did require several liters of fluid due to his hypotension and is currently receiving saline at 250 cc an hour. Recommendations: -Invasive ischemic assessment as above once is more stable. -Very judicious use of IV fluids which, at this point, I recommend stopping as his blood pressure is stable, his renal function is improving and he is able to tolerate p.o. intake. -Stat echocardiogram today. (3) CKD (chronic kidney disease) Is this a current diagnosis for this admission?: Yes Plan: The patient has a history of CKD as documented by Dr. Marin's note back in late 2017. He came in with an acute kidney injury with a creatinine of 4 which is now improving after IV fluids. Recommendations: -I will defer further management to hospitalist team. (4) Hypertension Qualifiers: Hypertension type: essential hypertension Qualified Code(s): I10 - Essential (primary) hypertension Is this a current diagnosis for this admission?: Yes Plan: The patient has a history of hypertension however he came into the emergency room hypotensive with an acute kidney injury. Recommendations: -Hold antihypertensives for now. -We will start outpatient medications once his blood pressure is improved.
[2019-09-15 08:39] LABS: APPEARANCE,URINE CLEAR; BILIRUBIN,URINE NEGATIVE (NEGATIVE); COLOR,URINE YELLOW; GLUCOSE, URINE NEGATIVE (NEGATIVE); KETONES,URINE NEGATIVE (NEGATIVE); PROTEIN,URINE NEGATIVE (NEGATIVE); URINE SPECIFIC GRAVITY 1.015; UROBILINOGEN,URINE NEGATIVE mg/dL (<2.0)
[2019-09-15 08:51] LABS: URINE AMPHETAMINES SCREEN NEGATIVE; URINE BARBITURATES SCREEN NEGATIVE; URINE BENZODIAZEPINES SCREEN NEGATIVE; URINE COCAINE SCREEN NEGATIVE; URINE METHADONE SCREEN NEGATIVE; URINE PHENCYCLIDINE SCREEN NEGATIVE
[2019-09-15 08:54] LABS: URINE MARIJUANA (THC) SCREEN UNCONFIRMED POSITIVE
[2019-09-15] MEDS: DOCUSATE SODIUM 100 MG CAPSULE PO SCH ×2 (09:49→17:02)
[2019-09-15] MEDS: RINGERS SOLUTION,LACTATED 1,000 ML IV PRN ×2 (09:49→16:59)
[2019-09-15 11:28] LABS: CREATINE KINASE MB 1.94 ng/mL (<4.55); TROPONIN I 0.098 ng/mL
[2019-09-15 17:03] LABS: CREATINE KINASE MB 1.71 ng/mL (<4.55); TROPONIN I 0.1 ng/mL
[2019-09-15 18:48] LABS: BLOOD UREA NITROGEN 28 mg/dL (7-20); CALCIUM 8.2 mg/dL (8.4-10.2); CARBON DIOXIDE 21 mmol/L (22-30); GLUCOSE 102 mg/dL (75-110); POTASSIUM 4.3 mmol/L (3.6-5.0)
[2019-09-15 18:54] LABS: CHLORIDE 109 mmol/L (98-107)
[2019-09-15 19:03] LABS: ANION GAP 2 (5-19)
--- NOTE | 2019-09-15 19:15 | XCELERA REPORT ---
[address] [address] Transthoracic Echocardiogram Report Name: AGUILAR MAHAN Age: 54 yrs Gender: Male : 1965 Patient Status: Inpatient Patient Location: [address] [place], [place] [address] Study Date: 09/15/2019 01:15 PM Height: 87 in Weight: 270 lb BSA: 2.8 m2 Procedure: A complete two-dimensional transthoracic echocardiogram was performed (2D, M-mode, spectral and color flow Doppler). The study was technically adequate with some images being suboptimal in quality. Reason For Study: Chest pain and heart failure. Ordering Physician: PENNIE PRABHAKAR Performed By: Lico Martinez Interpretation Summary The left ventricle is grossly normal size. Left ventricular systolic function is normal. LV EF is 55%. Doppler measurements suggest impaired left ventricular relaxation, which is associated with grade I/IV or mild diastolic dysfunction. The left ventricular wall motion is normal. There is no thrombus. Mild LAE. Moderate AI, trace TR, mild PI. Aortic root is mildly dilated at 4.2 cm. Proximal ascending aorta is mildly to moderately dilated at 4.5 cm. MMode/2D Measurements & Calculations RVDd: 4.1 cm LVIDd: 6.3 cm FS: 33.3 % Ao root diam: 4.2 cm IVSd: 1.5 cm LVIDs: 4.2 cm EDV(Teich): Ao root area: 198.1 ml LVPWd: 1.2 cm 13.6 cm2 ESV(Teich): 77.4 mlLA dimension: 4.5 cm EF(Teich): 60.9 % LVOT diam: 2.3 cmLVLd ap4: 9.8 cm SV(MOD-sp4): LVOT area: EDV(MOD-sp4): 76.0 ml 4.3 cm2 146.0 ml LVLs ap4: 8.8 cm ESV(MOD-sp4): 70.0 ml EF(MOD-sp4): 52.1 % Doppler Measurements & Calculations MV E max sang: MV P1/2t max sang: Ao V2 max: AI max sang: 52.0 cm/sec 51.4 cm/sec 145.0 cm/sec 466.1 cm/sec MV A max sang: MV P1/2t: 90.0 msec Ao max PG: AI max P.2 cm/sec 8.4 mmHg 86.9 mmHg MVA(P1/2t): 2.4 cm2 MV E/A: 0.68 MV dec slope: ROSS(V,D): 3.3 cm2 AI dec slope: 167.4 cm/sec2 173.7 cm/sec2 MV dec time: AI P1/2t: 0.29 sec 786.1 msec LV V1 max PG: PA V2 max: PI end-d sang: TR max sang: 5.1 mmHg 68.8 cm/sec 131.5 cm/sec 219.9 cm/sec LV V1 max: PA max P.9 mmHg TR max P.0 cm/sec 19.3 mmHg AV P1/2t-pr_phl: MV P1/2t-pr_phl: 786.1 msec 90.0 msec Left Ventricle The left ventricle is grossly normal size. Left ventricular systolic function is normal. LV EF is 55%. Doppler measurements suggest impaired left ventricular relaxation, which is associated with grade I/IV or mild diastolic dysfunction. The left ventricular wall motion is normal. There is no thrombus. Right Ventricle The right ventricle is normal in size, thickness and function. The right ventricular systolic function is normal. Atria The right atrium is normal. The left atrium is mildly dilated. Mitral Valve The mitral valve is grossly normal. There is no evidence of mitral valve prolapse. There is no mitral valve stenosis. There is no mitral regurgitation noted. Aortic Valve The aortic valve is normal in structure and functions normally. There is no aortic valvular vegetation. There is no aortic valve stenosis. There is a moderate amount of aortic regurgitation. Tricuspid Valve The tricuspid valve is not well visualized, but is grossly normal. There is no tricuspid valve prolapse. There is no tricuspid stenosis. There is a trace or physiologic amount of tricuspid regurgitation. Pulmonic Valve The pulmonic valve is not well seen, but is grossly normal. There is no vegetation on the pulmonic valve. There is no pulmonic valvular stenosis. There is a mild amount of pulmonic regurgitation. Great Vessels Aortic root is mildly dilated at 4.2 cm. Proximal ascending aorta is mildly to moderately dilated at 4.5 cm. The inferior vena cava appeared small and collapsed with respiration (RAP 0-5 mmHg). : PENNIE PRABHAKAR, Pennie
[2019-09-15] MEDS ORDERED: NORMAL SALINE 1000 ML 1,000 ML IV PRN (21:23)
[2019-09-16 04:15] LABS: APPEARANCE,URINE CLEAR; BILIRUBIN,URINE NEGATIVE (NEGATIVE); COLOR,URINE STRAW; GLUCOSE, URINE NEGATIVE (NEGATIVE); KETONES,URINE NEGATIVE (NEGATIVE); LEUKOCYTE ESTERASE,URINE TRACE (NEGATIVE); NITRITE,URINE NEGATIVE (NEGATIVE); PROTEIN,URINE NEGATIVE (NEGATIVE); URINE SPECIFIC GRAVITY 1.003; UROBILINOGEN,URINE NEGATIVE mg/dL (<2.0)
[2019-09-16] MEDS: PANTOPRAZOLE SODIUM 40 MG TABLET.DR PO SCH (05:51)
[2019-09-16 06:31] LABS: HEMATOCRIT 40.6 % (37.9-51.0); HEMOGLOBIN 13.9 g/dL (13.5-17.0); MEAN CORPUSCULAR HGB CONC 34.2 g/dL (32.0-36.0); MEAN CORPUSCULAR VOLUME 91 fl (80-97); PLATELET COUNT 150 10^3/uL (150-450); RED BLOOD COUNT 4.48 10^6/uL (4.35-5.55); RED CELL DISTRIBUTION WIDTH 14.2 % (11.5-14.0); WHITE BLOOD COUNT 6.2 10^3/uL (4.0-10.5)
[2019-09-16 06:50] LABS: ANION GAP 5 (5-19); BLOOD UREA NITROGEN 22 mg/dL (7-20); CALCIUM 8.2 mg/dL (8.4-10.2); CARBON DIOXIDE 20 mmol/L (22-30); CHLORIDE 110 mmol/L (98-107); GLUCOSE 85 mg/dL (75-110); POTASSIUM 4.2 mmol/L (3.6-5.0)
[2019-09-16] MEDS: ASPIRIN 81 MG TABLET, CHEWABLE PO SCH (09:36)
[2019-09-16] MEDS: CARVEDILOL 12.5 MG TABLET PO SCH ×2 (09:36→21:22)
[2019-09-16] MEDS: LISINOPRIL 5 MG TABLET PO SCH (09:37)
[2019-09-16] MEDS: DOCUSATE SODIUM 100 MG CAPSULE PO SCH ×2 (09:38→17:25)
--- NOTE | 2019-09-16 10:49 | PDOC PROGRESS REPORT ---
Subjective Progress Note for:: 09/16/19 Subjective:: The patient is a 54-year-old male with history of HTN, stage III CKD, systolic and diastolic heart failure with initial diagnosis in late 2016, suspected coronary artery disease by Lexiscan nuclear stress test in February 2017 demonstrating inferior wall CA versus diaphragmatic attenuation with an ejection fraction of 25% and no evidence of ischemia who is consulted to our service for evaluation of chest pain. The patient was initially evaluated by Dr. Marin in late 2016 when he presented with shortness of breath. At that time he was diagnosed with heart failure but unfortunately no echocardiogram was done at the time. He did undergo stress testing revealing no ischemia however he did have a fixed perfusion defect in inferior wall which was consistent with a prior CA versus diaphragmatic attenuation. His ejection fraction during that study was estimated to be 25% however no echocardiogram was done. He had been in his usual state of health until approximately 2 days ago when he began with chest pain that he described as a pressure, localized to an area underneath his left breast, with radiation to the back, neck and left shoulder, that lasted all night long and that resolved spontaneously. He did experience some shortness of breath as well as diaphoresis. He had been working in the heat for several days and upon presentation to the emergency room he was noted to be hypotensive with a systolic pressure of 70 mmHg. Per the nursing staff, he received 4 L of saline in the emergency room with resolution of his hypotension. His creatinine was 4.15 and later came down to 2.75. He was also begun on on a heparin drip and was awaiting transport to [facility] however they had a waiting list therefore was decided to admit the patient here. He feels well this morning and is found resting comfortably in bed. He specifically denies chest pain, shortness of breath, QUIJANO, PND, lower extremity edema, palpitations. There has been no recurrence of his chest pain. His telemetry demonstrates normal sinus rhythm with occasional PVCs. His main complaint this morning is recurrence of syncope when coughing, this has been going on for a while now. 09/16/19: The patient is found sleeping in his room but easily arousable. He had an uneventful night. He does complain of some abdominal distention and feels like he is retaining fluid. His telemetry demonstrates sinus rhythm and no evidence of ventricular dysrhythmias. His blood pressure at goal and his creatinine is improved to 1.71. His echocardiogram yesterday demonstrated a normal ejection fraction among other findings. Physical exam on 09/16/19: GENERAL: Obese Pleasant and conversational. Oriented x3 with normal mood. Not in acute distress. Well groomed and well developed. HEENT: Normocephalic, atraumatic. Sclerae anicteric. Oropharynx moist. NECK: No JVD. No carotid bruits. LUNGS: Clear to auscultation bilaterally. Normal respiratory effort without the use of accessory muscles or intercostal retractions. CARDIOVASCULAR: Regular rate and rhythm, normal S1 and S2 without murmurs, rubs, or gallops. PMI not displaced. ABDOMEN: No masses or tenderness to palpation. No bruit. No splenomegaly or hepatomegaly. No abdominal aorta bruit noted. EXTREMITIES: Trace pitting edema bilateral, no cyanosis, no clubbing. +2 pulses femoral and pedal pulses bilaterally. SKIN: No lesions or rashes. MUSCULOSKELETAL: No chest tenderness to palpation. NEUROLOGIC: Nonfocal. No gross sensory or motor deficits bilateral upper or lower extremities. Cardiac studies: Echocardiogram on 09/15/2019 at [facility]: -EF 55%. -Grade 1 diastolic dysfunction. -No wall motion abnormalities. -Moderate AI, trace TR, mild PI. -Mildly dilated aortic root at 4.2 cm. -Dilated proximal ascending aorta at 4.5 cm. Reason For Visit: CHEST PAIN,HEAT SYNCOPE,ACUTE KIDNEY INJURY Physical Exam Vital Signs: Temp Pulse Resp BP Pulse Ox 98.1 F 64 16 131/79 H 97 09/16/19 03:50 09/16/19 03:50 09/16/19 03:50 09/16/19 03:50 09/16/19 03:50 Intake & Output 09/15/19 09/16/19 09/17/19 06:59 06:59 06:59 Intake Total 4060 4761 Output Total 1750 Balance 4060 0561 Weight 122.9 kg 124.9 kg Results Laboratory Results: 09/16/19 05:36 09/16/19 05:36 09/15/19 09/15/19 09/15/19 03:32 07:40 16:10 WBC RBC Hgb Hct MCV MCH MCHC RDW Plt Count Sodium 131.8 L Potassium 4.3 Chloride 109 H Carbon Dioxide 21 L Anion Gap 2 L BUN 28 H Creatinine 2.11 H Est GFR ( Amer) 40 L Glucose 102 Calcium 8.2 L Magnesium Albumin 2.8 L Urine Color YELLOW Urine Appearance CLEAR Urine pH 5.0 Ur Specific [place] 1.015 Urine Protein NEGATIVE Urine Glucose (UA) NEGATIVE Urine Ketones NEGATIVE Urine Blood NEGATIVE Urine Nitrite Ur Leukocyte Esterase Urine WBC (Auto) Urine RBC (Auto) 0 09/16/19 09/16/19 09/16/19 03:56 05:36 05:36 WBC 6.2 RBC 4.48 Hgb 13.9 Hct 40.6 MCV 91 MCH 31.0 MCHC 34.2 RDW 14.2 H Plt Count 150 Sodium 134.6 L Potassium 4.2 Chloride 110 H Carbon Dioxide 20 L Anion Gap 5 BUN 22 H Creatinine 1.71 H Est GFR ( Amer) 51 L Glucose 85 Calcium 8.2 L Magnesium 2.3 Albumin Urine Color STRAW Urine Appearance CLEAR Urine pH 6.0 Ur Specific [place] 1.003 Urine Protein NEGATIVE Urine Glucose (UA) NEGATIVE Urine Ketones NEGATIVE Urine Blood NEGATIVE Urine Nitrite NEGATIVE Ur Leukocyte Esterase TRACE H Urine WBC (Auto) 8 Urine RBC (Auto) 09/14/19 09/14/19 09/14/19 16:10 16:10 19:47 Creatine Kinase 167 CK-MB (CK-2) Troponin I 0.091 0.058 NT-Pro-B Natriuret Pep 2590 H 09/15/19 09/15/19 09/15/19 03:32 03:32 10:33 Creatine Kinase 116 110 CK-MB (CK-2) 2.02 Troponin I 0.086 NT-Pro-B Natriuret Pep 09/15/19 09/15/19 09/15/19 10:33 16:10 16:10 Creatine Kinase 95 CK-MB (CK-2) 1.94 1.71 Troponin I 0.098 0.100 NT-Pro-B Natriuret Pep Impressions: Chest CT 09/14/19 00:00 IMPRESSION: 1. No acute pulmonary disease. 2. Ascending thoracic aortic aneurysm not significantly changed from previous examination. Ascending thoracic aorta measures maximum 4.4 cm diameter. No periaortic fluid. 3. Indeterminate right renal cortical lesion has increased in size since previous examination and may represent a solid mass. Further evaluation with contrast-enhanced renal protocol CT or MRI is recommended for complete characterization. 4. Nonobstructing right superior pole renal calculus. 5. Cholelithiasis. Chest X-Ray 09/14/19 16:03 IMPRESSION: NO ACUTE RADIOGRAPHIC FINDING IN THE CHEST. Abdomen/Pelvis CT 09/14/19 17:59 IMPRESSION: 1. No acute abnormality in the abdomen or pelvis. 2. Exophytic 6.2 cm right renal cortical mass has increased in size since previous CT of the chest in 2015, and is indeterminate. This may represent a complex cyst or possibly a solid mass. Given the increase in size, a nonemergent follow-up CT utilizing renal protocol (without and with IV contrast) is recommended for complete characterization. 3. 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 No abdominal aortic aneurysm. No surrounding fluid or inflammatory change. 4. Cholelithiasis. No CT evidence of acute cholecystitis. 5. Bilateral nonobstructing renal calculi. No obstructing calculus or hydronephrosis. 6. Colonic diverticulosis without evidence of diverticulitis. 09/16/19 05:36 09/16/19 05:36 MCV 91 fl (80-97) 09/16/19 05:36 MCH 31.0 pg (27.0-33.4) 09/16/19 05:36 MCHC 34.2 g/dL (32.0-36.0) 09/16/19 05:36 RDW 14.2 % (11.5-14.0) H 09/16/19 05:36 Seg Neutrophils % 60.9 % (42-78) 09/15/19 01:50 Chloride 110 mmol/L (98-107) H 09/16/19 05:36 Carbon Dioxide 20 mmol/L (22-30) L 09/16/19 05:36 Anion Gap 5 (5-19) 09/16/19 05:36 Est GFR ( Amer) 51 (>60) L 09/16/19 05:36 Glucose 85 mg/dL (75-110) 09/16/19 05:36 Calcium 8.2 mg/dL (8.4-10.2) L 09/16/19 05:36 Magnesium 2.3 mg/dL (1.6-2.3) 09/16/19 05:36 Total Bilirubin 0.8 mg/dL (0.2-1.3) 09/14/19 16:10 AST 22 U/L (17-59) 09/14/19 16:10 Alkaline Phosphatase 62 U/L (38-126) 09/14/19 16:10 Total Protein 6.4 g/dL (6.3-8.2) 09/14/19 16:10 Albumin 2.8 g/dL (3.5-5.0) L 09/15/19 03:32 Urine Color STRAW 09/16/19 03:56 Urine Appearance CLEAR 09/16/19 03:56 Urine pH 6.0 (5.0-9.0) 09/16/19 03:56 Ur Specific [place] 1.003 09/16/19 03:56 Urine Protein NEGATIVE mg/dL (NEGATIVE) 09/16/19 03:56 Urine Glucose (UA) NEGATIVE mg/dL (NEGATIVE) 09/16/19 03:56 Urine Ketones NEGATIVE mg/dL (NEGATIVE) 09/16/19 03:56 Urine Blood NEGATIVE (NEGATIVE) 09/16/19 03:56 Urine Nitrite NEGATIVE (NEGATIVE) 09/16/19 03:56 Ur Leukocyte Esterase TRACE (NEGATIVE) H 09/16/19 03:56 Urine WBC (Auto) 8 /HPF 09/16/19 03:56 Urine RBC (Auto) 0 /HPF 09/15/19 07:40 09/14/19 09/14/19 09/14/19 16:10 16:10 19:47 Creatine Kinase 167 CK-MB (CK-2) Troponin I 0.091 0.058 NT-Pro-B Natriuret Pep 2590 H 09/15/19 09/15/19 09/15/19 03:32 03:32 10:33 Creatine Kinase 116 110 CK-MB (CK-2) 2.02 Troponin I 0.086 NT-Pro-B Natriuret Pep 09/15/19 09/15/19 09/15/19 10:33 16:10 16:10 Creatine Kinase 95 CK-MB (CK-2) 1.94 1.71 Troponin I 0.098 0.100 NT-Pro-B Natriuret Pep Current Medication List Generic Name Dose Route Start Last Admin Trade Name Freq PRN Reason Stop Dose Admin Al Hydrox/Mg Hydrox/Simethicone 30 ml 09/15/19 02:02 Maalox Plus Susp 30 Udcup PO 10/15/19 02:01 Q6HP PRN [facility] Aspirin 81 mg 09/16/19 10:00 Aspirin 81 Mg Chewable Tablet PO 10/16/19 09:59 DAILY [facility] Carvedilol 25 mg 09/16/19 10:00 Coreg 12.5 Mg Tablet PO 10/16/19 09:59 Q12 [facility] Docusate Sodium 100 mg 09/15/19 10:00 09/15/19 17:02 Colace 100 Mg Capsule PO 10/15/19 09:59 Not Given BID [facility] Sodium Chloride 1,000 mls @ 125 mls/hr 09/15/19 21:23 Nacl 0.9% 1000 Ml Iv Soln IV 10/15/19 21:22 CONTINUOUS PRN THIS MED IS NOT "PRN" Levalbuterol HCl 0.63 mg 09/15/19 02:02 Xopenex Neb 0.63 Mg/3 Ml Ampul NEB 10/15/19 02:01 RTQ2HP PRN SHORTNESS OF BREATH Magnesium Hydroxide 30 ml 09/15/19 02:02 Milk Of Magnesia 30 Ml Udcup PO 10/15/19 02:01 DAILYP PRN FOR CONSTIPATION Ondansetron HCl 4 mg 09/15/19 02:02 Zofran Inj/Pf 4 Mg/2 Ml Sdv IV 10/15/19 02:01 Q4HP PRN FOR NAUSEA/VOMITING Pantoprazole Sodium 40 mg 09/15/19 06:00 09/16/19 05:[address] Tablet PO 10/15/19 05:59 40 mg Q6AM MENA Administration Sodium Chloride 2.5 ml 09/15/19 06:00 09/16/19 05:51 Saline Flush 2.5 Ml Monoject Prefil Syrin IV 10/15/19 05:59 2.5 ml Q8 MENA Administration Discontinued Medications Generic Name Dose Route Start Last Admin Trade Name Freq PRN Reason Stop Dose Admin Aspirin 324 mg 09/14/19 16:02 09/14/19 16:07 Aspirin 81 Mg Chewable Tablet PO 09/14/19 16:03 324 mg NOW ONE Administration Heparin Sodium (Porcine) 4,000 unit 09/14/19 20:08 09/14/19 20:51 Heparin Inj 1,000 Unit/Ml 10 Ml Vial IV 09/14/19 20:09 4,000 units NOW ONE Administration Heparin Sodium (Porcine) 0 - 12,000 unit 09/14/19 23:09 Heparin Inj 1,000 Unit/Ml 10 Ml Vial IV 10/14/19 23:08 .BOLUS PER PROTOCOL PRN RESPOND TO aPTT VALUE Protocol Heparin Sodium (Porcine) 0 - 12,000 unit 09/15/19 05:35 Heparin Inj 1,000 Unit/Ml 10 Ml Vial IV 10/15/19 05:34 .BOLUS PER PROTOCOL PRN RESPOND TO aPTT VALUE Protocol Sodium Chloride 1,000 mls @ 0 mls/hr 09/14/19 16:09 09/14/19 17:58 Nacl 0.9% 1000 Ml Iv Soln IV Infused X 2 BAGS PRN Infusion THIS MED IS NOT "PRN" Wide Open Sodium Chloride 1,000 mls @ 0 mls/hr 09/14/19 16:46 09/14/19 17:59 Nacl 0.9% 1000 Ml Iv Soln IV 09/14/19 16:47 Infused BOLUS ONE Infusion Wide Open Heparin Sodium/Dextrose 25,000 unit in 250 mls @ 0 mls/hr 09/14/19 20:08 09/15/19 02:51 Heparin Rtu 25,000 Unit/250 Ml D5w Premix IV 10/14/19 20:07 Infused CONTINUOUS PRN Titration THIS MED IS NOT "PRN" Protocol Titrate Sodium Chloride 1,000 mls @ 200 mls/hr 09/14/19 20:21 09/15/19 02:16 Nacl 0.9% 1000 Ml Iv Soln IV 09/15/19 01:20 Infused NOW ONE Infusion Lactated Ringer's 1,000 mls @ 250 mls/hr 09/15/19 02:02 09/15/19 18:28 Lactated Ringers 1000 Ml Iv Soln IV 10/15/19 02:01 Infused CONTINUOUS PRN Infusion THIS MED IS NOT "PRN" Heparin Sodium/Dextrose 25,000 unit in 250 mls @ 0 mls/hr 09/15/19 02:34 09/15/19 10:30 Heparin Rtu 25,000 Unit/250 Ml D5w Premix IV 10/15/19 02:33 Infused CONTINUOUS PRN Titration THIS MED IS NOT "PRN" Protocol Titrate Lactated Ringer's 1,000 mls @ 150 mls/hr 09/15/19 08:08 07/26/20 18:27 Lactated Ringers 1000 Ml Iv Soln IV 10/15/19 02:01 Infused CONTINUOUS PRN Infusion THIS MED IS NOT "PRN" Ondansetron HCl 4 mg 09/14/19 20:44 09/14/19 20:50 Zofran Inj/Pf 4 Mg/2 Ml Sdv IV 09/14/19 20:45 4 mg NOW ONE Administration Assessment & Plan - Diagnosis (1) Chest pain Qualifiers: Chest pain type: unspecified Qualified Code(s): R07.9 - Chest pain, unspecified Is this a current diagnosis for this admission?: Yes Plan: He has remained chest pain-free since admission and with troponins in the indeterminate range but rising. Unfortunately it is completely unclear at this point whether the patient truly has coronary artery disease as I have not been able to find any evidence that he underwent left heart catheterization. He does have significant cardiac risk factors for coronary artery disease and should undergo further ischemic assessment with left heart catheterization given his abnormal nuclear stress test 2 years ago, history of heart failure as well as this episode of chest pain. Recommendations: -Continue with current medical management -Continue trending cardiac enzymes. -Plan on left heart catheterization once his renal function is improved. (2) Chronic combined systolic and diastolic congestive heart failure Is this a current diagnosis for this admission?: Yes Plan: His echocardiogram yesterday demonstrated normal systolic function with grade 1 diastolic dysfunction. The patient feels slightly short of breath and fluid ove rloaded. He did receive a total of 6.2 L of fluids since admission given his significant dehydration and acute kidney injury. He does have trace pitting edema bilaterally. Recommendations: -Lasix 40 mg IV x1 now, continue to reassess throughout the day with as needed Lasix. -Replace electrolytes as needed. -Avoid unnecessary IV fluids. -Strict intake and output. -Repeat chest x-ray and proBNP. (3) CKD (chronic kidney disease) Is this a current diagnosis for this admission?: Yes Plan: The patient has a history of CKD as documented by Dr. Marin's note back in late 2016. His creatinine is improved to 1.71. Recommendations: -I will defer further management to hospitalist team. (4) Hypertension Qualifiers: Hypertension type: essential hypertension Qualified Code(s): I10 - Essential (primary) hypertension Is this a current diagnosis for this admission?: Yes Plan: The patient has a history of hypertension however he came into the emergency room hypotensive with an acute kidney injury. His blood pressure is now at goal. Recommendations: -Continue with current medical management.
[2019-09-16] MEDS ORDERED: FUROSEMIDE INJ/PF 40 MG/4 ML SDV IV ONE (11:15)
[2019-09-16] MEDS ORDERED: ONDANSETRON HCL INJ/PF 4 MG/2 ML SDV IV PRN (11:30)
--- NOTE | 2019-09-16 11:37 | RADIOLOGY REPORT (SQ) ---
EXAM DESCRIPTION: CHEST 2 VIEWS IMAGES COMPLETED DATE/TIME: 09/16/2019 11:25 am REASON FOR STUDY: Shortness of breath and heart failure COMPARISON: 09/14/2019 EXAM PARAMETERS: NUMBER OF VIEWS: two views TECHNIQUE: Digital Frontal and Lateral radiographic views of the chest acquired. RADIATION DOSE: NA LIMITATIONS: none FINDINGS: LUNGS AND PLEURA: No opacities, masses or pneumothorax. No pleural effusion. MEDIASTINUM AND HILAR STRUCTURES: No masses or contour abnormalities. HEART AND VASCULAR STRUCTURES: Heart is at the upper limits of normal in size. No failure or consoli dation. BONES: No acute findings. HARDWARE: None in the chest. OTHER: No other significant finding. IMPRESSION: NO ACUTE RADIOGRAPHIC FINDING IN THE CHEST. TECHNICAL DOCUMENTATION: JOB ID: [id number] 2010 [employer]- All Rights Reserved Reading location - IP/workstation name: [email or web address]
[2019-09-16 12:28] LABS: CREATINE KINASE MB 1.66 ng/mL (<4.55); TROPONIN I 0.075 ng/mL
[2019-09-16 18:28] LABS: CREATINE KINASE MB 1.9 ng/mL (<4.55)
[2019-09-16 18:41] LABS: TROPONIN I 0.071 ng/mL
--- NOTE | 2019-09-16 18:52 | PDOC PROGRESS REPORT ---
Subjective Progress Note for:: 09/16/19 Subjective:: Patient feels better. He did have a some feeling of chest heaviness today which he states he usually feels when he is starting to get fluid overloaded. Was given a dose of IV Lasix by cup machine operator. Otherwise he denies any lightheadedness dizziness presyncopal feelings. Reason For Visit: CHEST PAIN,SYNCOPE,ACUTE KIDNEY INJURY,HYPOVOLEMIC Physical Exam Vital Signs: Temp Pulse Resp BP Pulse Ox 97.6 F 57 L 16 114/81 97 09/16/19 07:28 09/16/19 16:06 09/16/19 16:06 09/16/19 07:28 09/16/19 16:06 Intake & Output 09/15/19 09/16/19 09/17/19 06:59 06:59 06:59 Intake Total 4060 4761 360 Output Total 2550 900 Balance 4060 2211 -540 Weight 122.9 kg 124.9 kg General appearance: PRESENT: no acute distress, cooperative Neck exam: ABSENT: JVD Respiratory exam: PRESENT: clear to auscultation davie, unlabored. ABSENT: crackles, tachypnea, wheezes Cardiovascular exam: PRESENT: RRR, +S1, +S2. ABSENT: irregular rhythm, tachycardia Musculoskeletal exam: PRESENT: ambulatory Neurological exam: PRESENT: alert, awake, oriented to person, oriented to place, oriented to time, oriented to situation Results Laboratory Results: 09/16/19 05:36 09/16/19 05:36 09/15/19 09/16/19 09/16/19 16:10 03:56 05:36 WBC 6.2 RBC 4.48 Hgb 13.9 Hct 40.6 MCV 91 MCH 31.0 MCHC 34.2 RDW 14.2 H Plt Count 150 Sodium 131.8 L Potassium 4.3 Chloride 109 H Carbon Dioxide 21 L Anion Gap 2 L BUN 28 H Creatinine 2.11 H Est GFR ( Amer) 40 L Glucose 102 Calcium 8.2 L Magnesium Urine Color STRAW Urine Appearance CLEAR Urine pH 6.0 Ur Specific [place] 1.003 Urine Protein NEGATIVE Urine Glucose (UA) NEGATIVE Urine Ketones NEGATIVE Urine Blood NEGATIVE Urine Nitrite NEGATIVE Ur Leukocyte Esterase TRACE H Urine WBC (Auto) 8 09/16/19 05:36 WBC RBC Hgb Hct MCV MCH MCHC RDW Plt Count Sodium 134.6 L Potassium 4.2 Chloride 110 H Carbon Dioxide 20 L Anion Gap 5 BUN 22 H Creatinine 1.71 H Est GFR ( Amer) 51 L Glucose 85 Calcium 8.2 L Magnesium 2.3 Urine Color Urine Appearance Urine pH Ur Specific [place] Urine Protein Urine Glucose (UA) Urine Ketones Urine Blood Urine Nitrite Ur Leukocyte Esterase Urine WBC (Auto) 09/14/19 09/14/19 09/14/19 16:10 16:10 19:47 Creatine Kinase 167 CK-MB (CK-2) Troponin I 0.091 0.058 NT-Pro-B Natriuret Pep 2590 H 09/15/19 09/15/19 09/15/19 03:32 03:32 10:33 Creatine Kinase 116 110 CK-MB (CK-2) 2.02 Troponin I 0.086 NT-Pro-B Natriuret Pep 09/15/19 09/15/19 09/15/19 10:33 16:10 16:10 Creatine Kinase 95 CK-MB (CK-2) 1.94 1.71 Troponin I 0.098 0.100 NT-Pro-B Natriuret Pep 09/16/19 09/16/19 09/16/19 05:36 11:16 11:16 Creatine Kinase 94 CK-MB (CK-2) 1.66 Troponin I 0.075 NT-Pro-B Natriuret Pep 794 H 09/16/19 17:31 Creatine Kinase 90 CK-MB (CK-2) Troponin I NT-Pro-B Natriuret Pep Impressions: Chest CT 09/14/19 00:00 IMPRESSION: 1. No acute pulmonary disease. 2. Ascending thoracic aortic aneurysm not significantly changed from previous examination. Ascending thoracic aorta measures maximum 4.4 cm diameter. No periaortic fluid. 3. Indeterminate right renal cortical lesion has increased in size since previous examination and may represent a solid mass. Further evaluation with contrast-enhanced renal protocol CT or MRI is recommended for complete characterization. 4. Nonobstructing right superior pole renal calculus. 5. Cholelithiasis. Abdomen/Pelvis CT 09/14/19 17:59 IMPRESSION: 1. No acute abnormality in the abdomen or pelvis. 2. Exophytic 6.2 cm right renal cortical mass has increased in size since previous CT of the chest in 2014, and is indeterminate. This may represent a complex cyst or possibly a solid mass. Given the increase in size, a nonemergent follow-up CT utilizing renal protocol (without and with IV contrast) is recommended for complete characterization. 3. 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 No abdominal aortic aneurysm. No surrounding fluid or inflammatory change. 4. Cholelithiasis. No CT evidence of acute cholecystitis. 5. Bilateral nonobstructing renal calculi. No obstructing calculus or hydronephrosis. 6. Colonic diverticulosis without evidence of diverticulitis. Chest X-Ray 09/16/19 00:00 IMPRESSION: NO ACUTE RADIOGRAPHIC FINDING IN THE CHEST. Assessment and Plan - Diagnosis (1) Syncope and collapse Is this a current diagnosis for this admission?: Yes Plan: Patient likely syncopized secondary to hypotension. Suspected to have been secondary to heat exhaustion and hypovolemia. Was given significant amount of IV fluid repletion. His blood pressure has now improved. Orthostatic vitals today are negative. Telemetry shows no evidence of sustained arrhythmias. Echocardiogram obtained which shows normal ejection fraction and no significant valvular disease though study was not optimal technically. (2) Acute kidney injury superimposed on CKD Is this a current diagnosis for this admission?: Yes Plan: His renal function has showed significant improvement with IV fluid hydration. His creatinine now seems to be within baseline. IV fluids have been discontinued at this time. Avoid nephrotoxins. (3) Hypotension due to hypovolemia Is this a current diagnosis for this admission?: Yes Plan: Currently resolved. Orthostatic vital signs today are normal. BP tolerating resumption of Coreg and low-dose lisinopril. (4) Chronic diastolic heart failure Is this a current diagnosis for this admission?: Yes Plan: Echocardiogram shows normal EF. BNP elevated in the 700s but this seems to be lower than his prior bnps. Chest x-ray obtained today without overt pulmonary edema. Cardiology following and administered a dose of IV Lasix today. Continue his home dose of p.o. Lasix starting tomorrow. Monitor blood pressure closely. (5) Chest pain Qualifiers: Chest pain type: unspecified Qualified Code(s): R07.9 - Chest pain, u nspecified Is this a current diagnosis for this admission?: Yes Plan: Troponin minimally elevated showing a flat trend from 0.075 to 0.071. Ca rdiology following and recommending outpatient follow-up for ischemic work-up and potential LHC as outpatient with pre-and post procedural hydration.. (6) Ascending aortic aneurysm Is this a current diagnosis for this admission?: Yes Plan: Incidental finding noted on his CAT scan involving ascending aorta 4.4cm and iliac. Currently no intervention is indicated given size but will need monitoring in the future as outpatient. I have discussed these with patient. (7) Hypertension Qualifiers: Hypertension type: essential hypertension Qualified Code(s): I10 - Essential (primary) hypertension Is this a current diagnosis for this admission?: Yes Plan: Coreg and lisinopril have been resumed. Monitor BP. (8) Renal mass Is this a current diagnosis for this admission?: Yes Plan: Noted incidentally 6.2 cm right renal mass. Uncertain if this could be a cyst. I have discussed this finding with patient and recommended that he follow-up with a urologist for further evaluation of this.. - Time Time Spent with patient: 15-24 minutes Anticipated Discharge Disposition: Home, Self Care Anticipated Discharge: within 24 hours
[2019-09-17] MEDS ORDERED: PANTOPRAZOLE SODIUM 40 MG TABLET.DR PO SCH (06:00)
[2019-09-17 07:06] LABS: BLOOD UREA NITROGEN 18 mg/dL (7-20); CALCIUM 8.7 mg/dL (8.4-10.2); CARBON DIOXIDE 24 mmol/L (22-30); CHLORIDE 108 mmol/L (98-107); GLUCOSE 99 mg/dL (75-110); POTASSIUM 4.4 mmol/L (3.6-5.0)
[2019-09-17 07:18] LABS: ANION GAP 2 (5-19)
[2019-09-17] MEDS ORDERED: FUROSEMIDE 40 MG TABLET PO SCH (08:00)
[2019-09-17] MEDS: DOCUSATE SODIUM 100 MG CAPSULE PO SCH (09:37)
[2019-09-17] MEDS: ASPIRIN 81 MG TABLET, CHEWABLE PO SCH (09:44)
[2019-09-17] MEDS: LISINOPRIL 5 MG TABLET PO SCH (09:46)
[2019-09-17] MEDS: CARVEDILOL 12.5 MG TABLET PO SCH (10:00)
--- NOTE | 2019-09-17 11:01 | PDOC PROGRESS REPORT ---
Subjective Progress Note for:: 09/17/19 Subjective:: The patient is a 54-year-old male with history of HTN, stage III CKD, systolic and diastolic heart failure with initial diagnosis in late 2016, suspected coronary artery disease by Lexiscan nuclear stress test in February 2017 demonstrating inferior wall ND versus diaphragmatic attenuation with an ejection fraction of 25% and no evidence of ischemia who is consulted to our service for evaluation of chest pain. The patient was initially evaluated by Dr. Marin in late 2016 when he presented with shortness of breath. At that time he was diagnosed with heart failure but unfortunately no echocardiogram was done at the time. He did undergo stress testing revealing no ischemia however he did have a fixed perfusion defect in inferior wall which was consistent with a prior ND versus diaphragmatic attenuation. His ejection fraction during that study was estimated to be 25% however no echocardiogram was done. He had been in his usual state of health until approximately 2 days ago when he began with chest pain that he described as a pressure, localized to an area underneath his left breast, with radiation to the back, neck and left shoulder, that lasted all night long and that resolved spontaneously. He did experience some shortness of breath as well as diaphoresis. He had been working in the heat for several days and upon presentation to the emergency room he was noted to be hypotensive with a systolic pressure of 70 mmHg. Per the nursing staff, he received 4 L of saline in the emergency room with resolution of his hypotension. His creatinine was 4.15 and later came down to 2.75. He was also begun on on a heparin drip and was awaiting transport to [facility] however they had a waiting list therefore was decided to admit the patient here. He feels well this morning and is found resting comfortably in bed. He specifically denies chest pain, shortness of breath, QUIJANO, PND, lower extremity edema, palpitations. There has been no recurrence of his chest pain. His telemetry demonstrates normal sinus rhythm with occasional PVCs. His main complaint this morning is recurrence of syncope when coughing, this has been going on for a while now. 09/17/19: The patient continues to be hemodynamically stable and asymptomatic. He specifically denies ischemic and heart failure symptoms. He diuresed very well to only 1 dose of Lasix IV and actually lost 4.175 L however he continues to have a positive fluid balance although asymptomatic. His renal function is improved and his proBNP is down to 794 from a peak of 2590. His echocardiogram demonstrated a normal ejection fraction among other findings. Physical exam on 09/17/19: GENERAL: Obese Pleasant and conversational. Oriented x3 with normal mood. Not in acute distress. Well groomed and well developed. HEENT: Normocephalic, atraumatic. Sclerae anicteric. Oropharynx moist. NECK: No JVD. No carotid bruits. LUNGS: Clear to auscultation bilaterally. Normal respiratory effort without the use of accessory muscles or intercostal retractions. CARDIOVASCULAR: Regular rate and rhythm, normal S1 and S2 without murmurs, rubs, or gallops. PMI not displaced. ABDOMEN: No masses or tenderness to palpation. No bruit. No splenomegaly or hepatomegaly. No abdominal aorta bruit noted. EXTREMITIES: No pitting edema bilateral, no cyanosis, no clubbing. +2 pulses f emoral and pedal pulses bilaterally. SKIN: No lesions or rashes. MUSCULOSKELETAL: No chest tenderness to palpation. NEUROLOGIC: Nonfocal. No gross sensory or motor deficits bilateral upper or low er extremities. Cardiac studies: Echocardiogram on 09/15/2019 at [facility]: -EF 55%. -Grade 1 diastolic dysfunction. -No wall motion abnormalities. -Moderate AI, trace TR, mild PI. -Mildly dilated aortic root at 4.2 cm. -Dilated proximal ascending aorta at 4.5 cm. Reason For Visit: CHEST PAIN,SYNCOPE,ACUTE KIDNEY INJURY,HYPOVOLEMIC Physical Exam Vital Signs: Temp Pulse Resp BP Pulse Ox 97.4 F 65 20 132/91 H 99 09/17/19 04:14 09/17/19 04:14 09/17/19 04:14 09/17/19 04:14 09/17/19 04:14 Intake & Output 09/16/19 09/17/19 09/18/19 06:59 06:59 06:59 Intake Total 4070 4140 Output Total 9431 4226 Balance 2210 -2104 Weight 124.9 kg 124.6 kg Results Laboratory Results: 09/16/19 05:36 09/17/19 05:33 09/17/19 05:33 Sodium 134.1 L Potassium 4.4 Chloride 108 H Carbon Dioxide 24 Anion Gap 2 L BUN 18 Creatinine 1.66 H Est GFR ( Amer) 52 L Glucose 99 Calcium 8.7 09/14/19 09/14/19 09/14/19 16:10 16:10 19:47 Creatine Kinase 167 CK-MB (CK-2) Troponin I 0.091 0.058 NT-Pro-B Natriuret Pep 2590 H 09/15/19 09/15/19 09/15/19 03:32 03:32 10:33 Creatine Kinase 116 110 CK-MB (CK-2) 2.02 Troponin I 0.086 NT-Pro-B Natriuret Pep 09/15/19 09/15/19 09/15/19 10:33 16:10 16:10 Creatine Kinase 95 CK-MB (CK-2) 1.94 1.71 Troponin I 0.098 0.100 NT-Pro-B Natriuret Pep 09/16/19 09/16/19 09/16/19 05:36 11:16 11:16 Creatine Kinase 94 CK-MB (CK-2) 1.66 Troponin I 0.075 NT-Pro-B Natriuret Pep 794 H 09/16/19 09/16/19 17:31 17:31 Creatine Kinase 90 CK-MB (CK-2) 1.90 Troponin I 0.071 NT-Pro-B Natriuret Pep Impressions: Chest CT 09/14/19 00:00 IMPRESSION: 1. No acute pulmonary disease. 2. Ascending thoracic aortic aneurysm not significantly changed from previous examination. Ascending thoracic aorta measures maximum 4.4 cm diameter. No periaortic fluid. 3. Indeterminate right renal cortical lesion has increased in size since previous examination and may represent a solid mass. Further evaluation with contrast-enhanced renal protocol CT or MRI is recommended for complete characterization. 4. Nonobstructing right superior pole renal calculus. 5. Cholelithiasis. Abdomen/Pelvis CT 09/14/19 17:59 IMPRESSION: 1. No acute abnormality in the abdomen or pelvis. 2. Exophytic 6.2 cm right renal cortical mass has increased in size since previous CT of the chest in 2014, and is indeterminate. This may represent a complex cyst or possibly a solid mass. Given the increase in size, a nonemergent follow-up CT utilizing renal protocol (without and with IV contrast) is recommended for complete characterization. 3. 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 No abdominal aortic aneurysm. No surrounding fluid or inflammatory change. 4. Cholelithiasis. No CT evidence of acute cholecystitis. 5. Bilateral nonobstructing renal calculi. No obstructing calculus or hydronephrosis. 6. Colonic diverticulosis without evidence of diverticulitis. Chest X-Ray 09/16/19 00:00 IMPRESSION: NO ACUTE RADIOGRAPHIC FINDING IN THE CHEST. 09/16/19 05:36 09/17/19 05:33 MCV 91 fl (80-97) 09/16/19 05:36 MCH 31.0 pg (27.0-33.4) 09/16/19 05:36 MCHC 34.2 g/dL (32.0-36.0) 09/16/19 05:36 RDW 14.2 % (11.5-14.0) H 09/16/19 05:36 Seg Neutrophils % 60.9 % (42-78) 09/15/19 01:50 Chloride 108 mmol/L (98-107) H 09/17/19 05:33 Carbon Dioxide 24 mmol/L (22-30) 09/17/19 05:33 Anion Gap 2 (5-19) L 09/17/19 05:33 Est GFR ( Amer) 52 (>60) L 09/17/19 05:33 Glucose 99 mg/dL (75-110) 09/17/19 05:33 Calcium 8.7 mg/dL (8.4-10.2) 09/17/19 05:33 Magnesium 2.3 mg/dL (1.6-2.3) 09/16/19 05:36 Total Bilirubin 0.8 mg/dL (0.2-1.3) 09/14/19 16:10 AST 22 U/L (17-59) 09/14/19 16:10 Alkaline Phosphatase 62 U/L (38-126) 09/14/19 16:10 Total Protein 6.4 g/dL (6.3-8.2) 09/14/19 16:10 Albumin 2.8 g/dL (3.5-5.0) L 09/15/19 03:32 Urine Color STRAW 09/16/19 03:56 Urine Appearance CLEAR 09/16/19 03:56 Urine pH 6.0 (5.0-9.0) 09/16/19 03:56 Ur Specific [place] 1.003 09/16/19 03:56 Urine Protein NEGATIVE mg/dL (NEGATIVE) 09/16/19 03:56 Urine Glucose (UA) NEGATIVE mg/dL (NEGATIVE) 09/16/19 03:56 Urine Ketones NEGATIVE mg/dL (NEGATIVE) 09/16/19 03:56 Urine Blood NEGATIVE (NEGATIVE) 09/16/19 03:56 Urine Nitrite NEGATIVE (NEGATIVE) 09/16/19 03:56 Ur Leukocyte Esterase TRACE (NEGATIVE) H 09/16/19 03:56 Urine WBC (Auto) 8 /HPF 09/16/19 03:56 Urine RBC (Auto) 0 /HPF 09/15/19 07:40 09/14/19 09/14/19 09/14/19 16:10 16:10 19:47 Creatine Kinase 167 CK-MB (CK-2) Troponin I 0.091 0.058 NT-Pro-B Natriuret Pep 2590 H 09/15/19 09/15/19 09/15/19 03:32 03:32 10:33 Creatine Kinase 116 110 CK-MB (CK-2) 2.02 Troponin I 0.086 NT-Pro-B Natriuret Pep 09/15/19 09/15/19 09/15/19 10:33 16:10 16:10 Creatine Kinase 95 CK-MB (CK-2) 1.94 1.71 Troponin I 0.098 0.100 NT-Pro-B Natriuret Pep 09/16/19 09/16/19 09/16/19 05:36 11:16 11:16 Creatine Kinase 94 CK-MB (CK-2) 1.66 Troponin I 0.075 NT-Pro-B Natriuret Pep 794 H 09/16/19 09/16/19 17:31 17:31 Creatine Kinase 90 CK-MB (CK-2) 1.90 Troponin I 0.071 NT-Pro-B Natriuret Pep Current Medication List Generic Name Dose Route Start Last Admin Trade Name Freq PRN Reason Stop Dose Admin Al Hydrox/Mg Hydrox/Simethicone 30 ml 09/15/19 02:02 Maalox Plus Susp 30 Udcup PO 10/15/19 02:01 Q6HP PRN HEARTBURN Aspirin 81 mg 09/16/19 10:00 07/27/20 09:36 Aspirin 81 Mg Chewable Tablet PO 10/16/19 09:59 81 mg DAILY MENA Administration Carvedilol 25 mg 09/16/19 10:00 09/16/19 21:22 Coreg 12.5 Mg Tablet PO 10/16/19 09:59 25 mg Q12 MENA Administration Docusate Sodium 100 mg 09/15/19 10:00 09/16/19 17:25 Colace 100 Mg Capsule PO 10/15/19 09:59 Not Given BID MENA Furosemide 40 mg 09/17/19 08:00 Lasix 40 Mg Tablet PO 10/17/19 07:59 QAM MENA Levalbuterol HCl 0.63 mg 09/15/19 02:02 Xopenex Neb 0.63 Mg/3 Ml Ampul NEB 10/15/19 02:01 RTQ2HP PRN SHORTNESS OF BREATH Lisinopril 2.5 mg 09/16/19 10:00 09/16/19 09:37 Prinivil 5 Mg Tablet PO 10/16/19 09:59 2.5 mg DAILY MENA Administration Magnesium Hydroxide 30 ml 09/15/19 02:02 Milk Of Magnesia 30 Ml Udcup PO 10/15/19 02:01 DAILYP PRN FOR CONSTIPATION Ondansetron HCl 4 mg 09/16/19 11:30 Zofran Inj/Pf 4 Mg/2 Ml Sdv IV 10/15/19 02:01 Q4HP PRN FOR NAUSEA/VOMITING Pantoprazole Sodium 40 mg 09/17/19 06:00 09/17/19 05:[address] Tablet PO 10/15/19 05:59 40 mg Q6AM MENA Administration Sodium Chloride 2.5 ml 09/15/19 06:00 09/17/19 05:53 Saline Flush 2.5 Ml Monoject Prefil Syrin IV 10/15/19 05:59 2.5 ml Q8 MENA Administration Discontinued Medications Generic Name Dose Route Start Last Admin Trade Name Freq PRN Reason Stop Dose Admin Aspirin 324 mg 09/14/19 16:02 09/14/19 16:07 Aspirin 81 Mg Chewable Tablet PO 09/14/19 16:03 324 mg NOW ONE Administration Furosemide 40 mg 09/16/19 11:15 09/16/19 11:32 Lasix Inj/Pf 40 Mg/4 Ml Sdv IV 09/16/19 11:16 40 mg NOW ONE Administration Heparin Sodium (Porcine) 4,000 unit 09/14/19 20:08 09/14/19 20:51 Heparin Inj 1,000 Unit/Ml 10 Ml Vial IV 09/14/19 20:09 4,000 units NOW ONE Administration Heparin Sodium (Porcine) 0 - 12,000 unit 09/14/19 23:09 Heparin Inj 1,000 Unit/Ml 10 Ml Vial IV 10/14/19 23:08 .BOLUS PER PROTOCOL PRN RESPOND TO aPTT VALUE Protocol Heparin Sodium (Porcine) 0 - 12,000 unit 09/15/19 05:35 Heparin Inj 1,000 Unit/Ml 10 Ml Vial IV 10/15/19 05:34 .BOLUS PER PROTOCOL PRN RESPOND TO aPTT VALUE Protocol Sodium Chloride 1,000 mls @ 0 mls/hr 09/14/19 16:09 09/14/19 17:58 Nacl 0.9% 1000 Ml Iv Soln IV Infused X 2 BAGS PRN Infusion THIS MED IS NOT "PRN" Wide Open Sodium Chloride 1,000 mls @ 0 mls/hr 09/14/19 16:46 09/14/19 17:59 Nacl 0.9% 1000 Ml Iv Soln IV 09/14/19 16:47 Infused BOLUS ONE Infusion Wide Open Heparin Sodium/Dextrose 25,000 unit in 250 mls @ 0 mls/hr 09/14/19 20:08 09/15/19 02:51 Heparin Rtu 25,000 Unit/250 Ml D5w Premix IV 10/14/19 20:07 Infused CONTINUOUS PRN Titration THIS MED IS NOT "PRN" Protocol Titrate Sodium Chloride 1,000 mls @ 200 mls/hr 09/14/19 20:21 09/15/19 02:16 Nacl 0.9% 1000 Ml Iv Soln IV 09/15/19 01:20 Infused NOW ONE Infusion Lactated Ringer's 1,000 mls @ 250 mls/hr 09/15/19 02:02 09/15/19 18:28 Lactated Ringers 1000 Ml Iv Soln IV 10/15/19 02:01 Infused CONTINUOUS PRN Infusion THIS MED IS NOT "PRN" Heparin Sodium/Dextrose 25,000 unit in 250 mls @ 0 mls/hr 09/15/19 02:34 09/15/19 10:30 Heparin Rtu 25,000 Unit/250 Ml D5w Premix IV 10/15/19 02:33 Infused CONTINUOUS PRN Titration THIS MED IS NOT "PRN" Protocol Titrate Lactated Ringer's 1,000 mls @ 150 mls/hr 09/15/19 08:08 09/15/19 18:27 Lactated Ringers 1000 Ml Iv Soln IV 10/15/19 02:01 Infused CONTINUOUS PRN Infusion THIS MED IS NOT "PRN" Sodium Chloride 1,000 mls @ 125 mls/hr 09/15/19 21:23 Nacl 0.9% 1000 Ml Iv Soln IV 10/15/19 21:22 CONTINUOUS PRN THIS MED IS NOT "PRN" Ondansetron HCl 4 mg 09/14/19 20:44 09/14/19 20:50 Zofran Inj/Pf 4 Mg/2 Ml Sdv IV 09/14/19 20:45 4 mg NOW ONE Administration Ondansetron HCl 4 mg 09/15/19 02:02 Zofran Inj/Pf 4 Mg/2 Ml Sdv IV 10/15/19 02:01 Q4HP PRN FOR NAUSEA/VOMITING Pantoprazole Sodium 40 mg 09/15/19 06:00 09/16/19 05:[address] Tablet PO 10/15/19 05:59 40 mg Q6AM MENA Administration Assessment & Plan - Diagnosis (1) Chest pain Qualifiers: Chest pain type: unspecified Qualified Code(s): R07.9 - Chest pain, unspecified Is this a current diagnosis for this admission?: Yes Plan: He has remained chest pain-free since admission and with troponins in the indeterminate range. Unfortunately it is completely unclear at this point whether the patient truly has coronary artery disease as I have not been able to find any evidence that he underwent left heart catheterization. He does have significant cardiac risk factors for coronary artery disease and should undergo further ischemic assessment with either left heart catheterization or nuclear stress testing particularly given his renal dysfunction. Recommendations: -Continue with current medical management -The patient may be discharged from the cardiovascular standpoint with outpatient cardiology follow-up with Dr. Martinez for further ischemic assessment with either left heart catheterization versus nuclear stress test. (2) Chronic combined systolic and diastolic congestive heart failure Is this a current diagnosis for this admission?: Yes Plan: His echocardiogram demonstrated normal systolic function with grade 1 diastolic dysfunction. He has responded very well to diuresis. Recommendations: -Restart outpatient Lasix p.o. dose. -Low-sodium diet. -Follow-up with Dr. Martinez within 1 week of discharge. (3) CKD (chronic kidney disease) Is this a current diagnosis for this admission?: Yes Plan: The patient has a history of CKD as documented by Dr. Marin's note back in late 2017. His creatinine is improved to 1.66. Recommendations: -I will defer further management to hospitalist team. (4) Hypertension Qualifiers: Hypertension type: essential hypertension Qualified Code(s): I10 - Essential (primary) hypertension Is this a current diagnosis for this admission?: Yes Plan: The patient has a history of hypertension however he came into the emergency room hypotensive with an acute kidney injury. His blood pressure is now at goal. Recommendations: -Continue with current medical management.
[2019-09-17] MEDS ORDERED: PREDNISONE 20 MG TABLET PO ONE (12:30)
--- NOTE | 2019-09-17 14:10 | RADIOLOGY REPORT (SQ) ---
EXAM DESCRIPTION: HAND RIGHT 3 VIEWS IMAGES COMPLETED DATE/TIME: 09/17/2019 1:17 pm REASON FOR STUDY: swelling/stiffnesss COMPARISON: None. EXAM PARAMETERS: NUMBER OF VIEWS: Three views. TECHNIQUE: AP, lateral and oblique radiographic images acquired of the right hand. LIMITATIONS: None. FINDINGS: MINERALIZATION: Normal. BONES: No acute fracture or dislocation. No worrisome bone lesions. JOINTS: No effusions. SOFT TISSUES: No soft tissue swelling. No foreign body. OTHER: No other significant finding. IMPRESSION: NEGATIVE STUDY OF THE RIGHT HAND. NO RADIOGRAPHIC EVIDENCE OF ACUTE INJURY. TECHNICAL DOCUMENTATION: JOB ID: [id number] [employer]- All Rights Reserved Reading location - IP/workstation name: [email or web address]
--- NOTE | 2019-09-17 16:12 | PDOC DISCHARGE SUMMARY ---
Impression - Admit/DC Date/PCP Admission Date/Primary Care Provider: 09/16/19 17:02 Discharge Date: 09/17/19 - Discharge Diagnosis (1) Syncope and collapse Is this a current diagnosis for this admission?: Yes (2) Acute kidney injury superimposed on CKD Is this a current diagnosis for this admission?: Yes (3) Hypotension due to hypovolemia Is this a current diagnosis for this admission?: Yes (4) Chronic diastolic heart failure Is this a current diagnosis for this admission?: Yes (5) Chest pain Is this a current diagnosis for this admission?: Yes (6) Ascending aortic aneurysm Is this a current diagnosis for this admission?: Yes (7) Hypertension Is this a current diagnosis for this admission?: Yes (8) Renal mass Is this a current diagnosis for this admission?: Yes - Additional Information Resuscitation Status: Full Code Discharge Diet: As Tolerated Discharge Activity: Activity As Tolerated Referrals: LATASHA DORSEY NP [COMMUNITY BASED STAFF] - Follow up as needed (provider needs to be consulted and they will contact the pt) SURY MARTINEZ MD [ACTIVE PROVISIONAL STAFF] - Prescriptions: Carvedilol [Coreg 12.5 mg Tablet] 12.5 mg PO Q12 #60 tablet Prednisone [Deltasone 20 mg Tablet] 20 mg PO DAILY #5 tablet Aspirin [Ecotrin 81 mg EC Tablet] 81 mg PO DAILY #30 tabec Furosemide [Lasix 40 mg Tablet] 40 mg PO QAM #30 Lisinopril [Prinivil 5 mg Tablet] 2.5 mg PO DAILY #30 Home Medications: Aspirin [Ecotrin 81 mg EC Tablet] 81 mg PO DAILY #30 tabec 09/17/19 Carvedilol [Coreg 12.5 mg Tablet] 12.5 mg PO Q12 #60 tablet 09/17/19 Furosemide [Lasix 40 mg Tablet] 40 mg PO QAM #30 09/17/19 Lisinopril [Prinivil 5 mg Tablet] 2.5 mg PO DAILY #30 09/17/19 Prednisone [Deltasone 20 mg Tablet] 20 mg PO DAILY #5 tablet 09/17/19 History of Present Illiness History of Present Illness: According to admitting provider: AGUILAR MAHAN is a 54 year old male who presented to the emergency room with a 1 day history of chest pain. He admits developing a constant, moderately intense dull pain in his central chest radiating straight through to his back on the evening of 09/13/2019. The pain has been persistent since onset and gradually worsened, becoming severe, while he was working out in the heat on the afternoon of 09/14/2019. His chest pain has been accompanied diaphoresis and has been associated with generalized weakness, dizziness and lightheadedness. He denies other associated or accompanying signs and symptoms. He admits prior similar episodes with heart problems. He admits having worked out in the heat for the last 2 days and notes that he has not been drinking a lot of fluids and he had not passed any urine on 09/14/2019. He has not identified any additional aggravating or ameliorating factors for his chest pain. In the emergency room he was found to have an EKG that showed some nonspecific T wave changes and cardiac enzymes which showed no evidence of acute myocardial injury or ischemia and trended down over the course of his ER stay. He received bolus IV fluids as he had been initially hypotensive and he was started on a heparin infusion for his chest pain. His chest pain resolved in the emergency room and his hypotension also resolved. He was subsequently admitted to the observation status on the telemetry unit for further evaluation and treatment. Hospital Course Hospital Course: (1) Syncope and collapse Is this a current diagnosis for this admission?: Yes Plan: Patient likely syncopized secondary to hypotension. Suspected to have been secondary to heat exhaustion and hypovolemia. Was given significant amount of IV fluid repletion. His blood pressure has now improved. Orthostatic vitals today are negative. Telemetry shows no evidence of sustained arrhythmias. Echocardiogram obtained which shows normal ejection fraction and no significant valvular disease though study was not optimal technically. (2) Acute kidney injury superimposed on CKD Is this a current diagnosis for this admission?: Yes Plan: His renal function has showed significant improvement with IV fluid hydration. His creatinine now seems to be within baseline. IV fluids have been discontinued at this time. Avoid nephrotoxins. (3) Hypotension due to hypovolemia Is this a current diagnosis for this admission?: Yes Plan: Currently resolved. Orthostatic vital signs today are normal. BP tolerating resumption of Coreg and low-dose lisinopril. (4) Chronic diastolic heart failure Is this a current diagnosis for this admission?: Yes Plan: Echocardiogram shows normal EF. BNP elevated in the 700s but this seems to be lower than his prior bnps. Chest x-ray obtained today without overt pulmonary edema. Received IV Lasix yesterday. Continue p.o. Lasix. Monitor blood pressure closely. (5) Chest pain Qualifiers: Chest pain type: unspecified Qualified Code(s): R07.9 - Chest pain, unspecified Is this a current diagnosis for this admission?: Yes Plan: Troponin minimally elevated showing a flat trend from 0.075 to 0.071. Cardiology following and recommending outpatient follow-up for ischemic work-up and potential LHC as outpatient with pre-and post procedural hydration.. Scheduled to follow-up with Dr. Martinez. (6) Ascending aortic aneurysm Is this a current diagnosis for this admission?: Yes Plan: Incidental finding noted on his CAT scan involving ascending aorta 4.4cm stable since 2017 and iliac. Currently no intervention is indicated given size but will need monitoring in the future as outpatient. I have discussed these with patient. (7) Hypertension Qualifiers: Hypertension type: essential hypertension Qualified Code(s): I10 - Essential (primary) hypertension Is this a current diagnosis for this admission?: Yes Plan: Coreg and lisinopril have been resumed. Monitor BP. Coreg dose reduced to 12.5 mg twice daily due to bradycardia. (8) Renal mass Is this a current diagnosis for this admission?: Yes Plan: Noted incidentally 6.2 cm right renal mass. Uncertain if this could be a cyst. I have discussed this finding with patient and recommended that he follow-up with a urologist for further evaluation of this.. Swelling in finger of right hand: X-ray is unremarkable. 5 days of prednisone. Possible gout. Physical Exam Vital Signs: Temp Pulse Resp BP Pulse Ox 97.4 F 53 L 16 132/91 H 97 09/17/19 04:14 09/17/19 10:31 09/17/19 10:31 09/17/19 04:14 09/17/19 10:31 Intake & Output 09/16/19 09/17/19 09/18/19 06:59 06:59 06:59 Intake Total 4767 2070 1017 Output Total 1980 4175 780 Balance 2211 -2105 237 Weight 124.9 kg 124.6 kg General appearance: PRESENT: no acute distress, cooperative Neck exam: ABSENT: JVD Respiratory exam: PRESENT: clear to auscultation davie, symmetrical, unlabored. ABSENT: tachypnea, wheezes Cardiovascular exam: PRESENT: RRR, +S1, +S2. ABSENT: tachycardia GI/Abdominal exam: PRESENT: soft. ABSENT: rebound, rigid, tenderness Extremities exam: PRESENT: other - Swelling in right2 finger Neurological exam: PRESENT: alert, awake, oriented to person, oriented to place, oriented to time Results Laboratory Results: WBC 6.2 10^3/uL (4.0-10.5) 09/16/19 05:36 RBC 4.48 10^6/uL (4.35-5.55) 09/16/19 05:36 Hgb 13.9 g/dL (13.5-17.0) 09/16/19 05:36 Hct 40.6 % (37.9-51.0) 09/16/19 05:36 MCV 91 fl (80-97) 09/16/19 05:36 MCH 31.0 pg (27.0-33.4) 09/16/19 05:36 MCHC 34.2 g/dL (32.0-36.0) 09/16/19 05:36 RDW 14.2 % (11.5-14.0) H 09/16/19 05:36 Plt Count 150 10^3/uL (150-450) 09/16/19 05:36 Lymph % (Auto) 27.8 % (13-45) 09/15/19 01:50 Alfalfa % (Auto) 9.1 % (3-13) 09/15/19 01:50 Eos % (Auto) 1.8 % (0-6) 09/15/19 01:50 Baso % (Auto) 0.4 % (0-2) 09/15/19 01:50 Absolute Neuts (auto) 5.7 10^3/uL (1.7-8.2) 09/15/19 01:50 Absolute Lymphs (auto) 2.6 10^3/uL (0.5-4.7) 09/15/19 01:50 Absolute Monos (auto) 0.9 10^3/uL (0.1-1.4) 09/15/19 01:50 Absolute Eos (auto) 0.2 10^3/uL (0.0-0.6) 09/15/19 01:50 Absolute Basos (auto) 0.0 10^3/uL (0.0-0.2) 09/15/19 01:50 Seg Neutrophils % 60.9 % (42-78) 09/15/19 01:50 PT 14.5 SEC (11.4-15.4) 09/14/19 16:48 INR 1.12 09/14/19 16:48 APTT 32.5 SEC (23.5-35.8) 09/15/19 10:33 D-Dimer 0.81 ug/mL (0.00-0.50) H 09/14/19 16:10 Sodium 134.1 mmol/L (137-145) L 09/17/19 05:33 Potassium 4.4 mmol/L (3.6-5.0) 09/17/19 05:33 Chloride 108 mmol/L (98-107) H 09/17/19 05:33 Carbon Dioxide 24 mmol/L (22-30) 09/17/19 05:33 Anion Gap 2 (5-19) L 09/17/19 05:33 BUN 18 mg/dL (7-20) 09/17/19 05:33 Creatinine 1.66 mg/dL (0.52-1.25) H 09/17/19 05:33 Est GFR ( Amer) 52 (>60) L 09/17/19 05:33 Est GFR (MDRD) Non-Af 43 (>60) L 09/17/19 05:33 Glucose 99 mg/dL (75-110) 09/17/19 05:33 Calcium 8.7 mg/dL (8.4-10.2) 09/17/19 05:33 Magnesium 2.3 mg/dL (1.6-2.3) 09/16/19 05:36 Total Bilirubin 0.8 mg/dL (0.2-1.3) 09/14/19 16:10 Direct Bilirubin 0.1 mg/dL (0.0-0.4) 09/14/19 16:10 Neonat Total Bilirubin Not Reportable 09/14/19 16:10 Neonat Direct Bilirubin Not Reportable 09/14/19 16:10 Neonat Indirect Bili Not Reportable 09/14/19 16:10 AST 22 U/L (17-59) 09/14/19 16:10 ALT 13 U/L (<50) 09/14/19 16:10 Alkaline Phosphatase 62 U/L (38-126) 09/14/19 16:10 Creatine Kinase 90 U/L (55-170) 09/16/19 17:31 CK-MB (CK-2) 1.90 ng/mL (<4.55) 09/16/19 17:31 Troponin I 0.071 ng/mL 09/16/19 17:31 NT-Pro-B Natriuret Pep 794 pg/mL (<125) H 09/16/19 05:36 Total Protein 6.4 g/dL (6.3-8.2) 09/14/19 16:10 Albumin 2.8 g/dL (3.5-5.0) L 09/15/19 03:32 Urine Color STRAW 09/16/19 03:56 Urine Appearance CLEAR 09/16/19 03:56 Urine pH 6.0 (5.0-9.0) 09/16/19 03:56 Ur Specific [place] 1.003 09/16/19 03:56 Urine Protein NEGATIVE mg/dL (NEGATIVE) 09/16/19 03:56 Urine Glucose (UA) NEGATIVE mg/dL (NEGATIVE) 09/16/19 03:56 Urine Ketones NEGATIVE mg/dL (NEGATIVE) 09/16/19 03:56 Urine Blood NEGATIVE (NEGATIVE) 09/16/19 03:56 Urine Nitrite NEGATIVE (NEGATIVE) 09/16/19 03:56 Urine Nitrite (Reflex) NEGATIVE (NEGATIVE) 09/15/19 07:40 Urine Bilirubin NEGATIVE (NEGATIVE) 09/16/19 03:56 Urine Urobilinogen NEGATIVE mg/dL (<2.0) 09/16/19 03:56 Ur Leukocyte Esterase TRACE (NEGATIVE) H 09/16/19 03:56 Leukocyte Esterase Rfl TRACE (NEGATIVE) H 09/15/19 07:40 Urine WBC (Auto) 8 /HPF 09/16/19 03:56 Urine RBC (Auto) 0 /HPF 09/15/19 07:40 U Hyaline Cast (Auto) 1 /LPF 09/15/19 07:40 Urine WBC (Reflex) 19 /HPF 09/15/19 07:40 Squamous Epi Cells Auto <1 /HPF 09/16/19 03:56 Urine Mucus (Auto) RARE /LPF 09/16/19 03:56 Urine Ascorbic Acid NEGATIVE (NEGATIVE) 09/16/19 03:56 Urine Opiates Screen NEGATIVE 09/15/19 07:40 Urine Methadone Screen NEGATIVE 09/15/19 07:40 Ur Barbiturates Screen NEGATIVE 09/15/19 07:40 Ur Phencyclidine Scrn NEGATIVE 09/15/19 07:40 Ur Amphetamines Screen NEGATIVE 09/15/19 07:40 U Benzodiazepines Scrn NEGATIVE 09/15/19 07:40 Urine Cocaine Screen NEGATIVE 09/15/19 07:40 U Marijuana (THC) Screen UNCONFIRMED POSITIVE 09/15/19 07:40 Serum Alcohol < 10 mg/dL (NONE DETECTED) 09/14/19 16:10 COVID-19 Source Cancelled 09/14/19 20:11 COVID-19 (JULIANA) Cancelled 09/14/19 20:11 SARS-CoV-2 (PCR) NEGATIVE (NEGATIVE) 09/14/19 20:11 09/14/19 09/14/19 09/15/19 16:10 19:47 03:32 CK-MB (CK-2) 2.02 Troponin I 0.091 0.058 0.086 NT-Pro-B Natriuret Pep 2590 H 09/15/19 09/15/19 09/16/19 10:33 16:10 05:36 CK-MB (CK-2) 1.94 1.71 Troponin I 0.098 0.100 NT-Pro-B Natriuret Pep 794 H 09/16/19 09/16/19 11:16 17:31 CK-MB (CK-2) 1.66 1.90 Troponin I 0.075 0.071 NT-Pro-B Natriuret Pep Impressions: Chest CT 09/14/19 00:00 IMPRESSION: 1. No acute pulmonary disease. 2. Ascending thoracic aortic aneurysm not significantly changed from previous examination. Ascending thoracic aorta measures maximum 4.4 cm diameter. No periaortic fluid. 3. Indeterminate right renal cortical lesion has increased in size since previous examination and may represent a solid mass. Further evaluation with contrast-enhanced renal protocol CT or MRI is recommended for complete characterization. 4. Nonobstructing right superior pole renal calculus. 5. Cholelithiasis. Chest X-Ray 09/14/19 16:03 IMPRESSION: NO ACUTE RADIOGRAPHIC FINDING IN THE CHEST. Abdomen/Pelvis CT 09/14/19 17:59 IMPRESSION: 1. No acute abnormality in the abdomen or pelvis. 2. Exophytic 6.2 cm right renal cortical mass has increased in size since previous CT of the chest in 2014, and is indeterminate. This may represent a complex cyst or possibly a solid mass. Given the increase in size, a nonemergent follow-up CT utilizing renal protocol (without and with IV contrast) is recommended for complete characterization. 3. 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 No abdominal aortic aneurysm. No surrounding fluid or inflammatory change. 4. Cholelithiasis. No CT evidence of acute cholecystitis. 5. Bilateral nonobstructing renal calculi. No obstructing calculus or hydronephrosis. 6. Colonic diverticulosis without evidence of diverticulitis. Chest X-Ray 09/16/19 00:00 IMPRESSION: NO ACUTE RADIOGRAPHIC FINDING IN THE CHEST. Hand X-Ray 09/17/19 00:00 IMPRESSION: NEGATIVE STUDY OF THE RIGHT HAND. NO RADIOGRAPHIC EVIDENCE OF ACUTE INJURY. Plan Goals: Latasha Dorsey needs to consulted andthey will contact the patient Time Spent: Greater than 30 Minutes Stroke Is this a Stroke Patient?: No Acute Heart Failure - Is this a Heart Failure Patient?: No
[2019-09-17 19:09] VITALS: BP 109/65
== END 2019-09-17 19:20 | disposition home or self-care (01) | DRG 683 ==
LOC: ER 15:38 → EH 09-15 01:39 → 3W 09-15 03:08 → OBSVTOIN 09-16 17:02
PROVIDERS: ADMIT Emergency Medicine; ATTEND Internal Medicine
DX: N17.9 Acute kidney failure, unspecified (principal); I50.42 Chronic combined systolic (congestive) and diastolic (congestive) heart failure; I13.0 Hypertensive heart and chronic kidney disease with heart failure and stage 1 through stage 4 chronic kidney disease, or unspecified chronic kidney disease; I95.9 Hypotension, unspecified; E86.0 Dehydration; N18.3 Chronic kidney disease, stage 3 (moderate); E86.1 Hypovolemia; N28.89 Other specified disorders of kidney and ureter; I71.2 Thoracic aortic aneurysm, without rupture; R07.9 Chest pain, unspecified; H54.61 Unqualified visual loss, right eye, normal vision left eye; F17.210 Nicotine dependence, cigarettes, uncomplicated; X30.XXXA Exposure to excessive natural heat, initial encounter; Y93.89 Activity, other specified; Y92.89 Other specified places as the place of occurrence of the external cause; Z20.828 Contact with and (suspected) exposure to other viral communicable diseases
CPT/HCPCS: 36415; 71045; 71046; 71250; 74176; 80048; 80053; 80307; 81001; 82040; 82550; 82553; 83735; 83880; 84484; 85025; 85027; 85379; 85610; 85730; 87086; 87635; 93005; 93010; 93306; 96361; 96365; 96366; 96375; 99285; C9803; G0378; J1644; J1940; J2405; J3490; J7030; J7120